=== PATIENT | female | born 1950 | race Caucasian/White ===

== ENCOUNTER 2016-07-30 15:15 | Inpatient (IN) | payer OTHER ==
[~2016-07-30] VITALS: Ht 165.1 cm; Wt 99.1 kg
[~2016-07-30 15:15] MED LIST: ASCO10003 PO; ASPCH81X PO; ATOR-22 PO; GABA800T2 PO; INSUINJ12 SC; LISI-729 PO; METF1000 PO; MULT-190 PO; MULT-506 PO; VITA400C28 PO; ZNTT/150 PO
[2016-07-30] MEDS ORDERED: ONDANSETRON INJ 2 MG/ML 2 ML VIAL IV STA (15:51)
[2016-07-30] MEDS ORDERED: SODIUM CHLORIDE 0.9% 1000ML 1,000 ML IV STA (15:51)
[2016-07-30] MEDS ORDERED: CEFTRIAXONE SOD INJ 1 GM ADDVIAL IV STA (16:06)
--- NOTE | 2016-07-30 16:19 | DIAGNOSTIC IMAGING REPORT ---
CHEST ONE VIEW PORTABLE CLINICAL HISTORY: Evaluate Fever/Sepsis fever COMPARISON STUDY: 05/08/2016 FINDINGS: Slight chronic interstitial prominence left base. Lungs otherwise are clear. Diaphragms smooth. IMPRESSION: Chronic change. No acute process. Electronically signed by: Jean-Pierre Cabrera M.D. 07/30/2016 4:17 PM
[2016-07-30 16:21] LABS: BASO % 0.1 %; BASO ABS # 0.01 K/uL (0-0.2); COMPLETE YES; EOS % 0.1 %; HEMATOCRIT 31.7 % (37-47); IG% 0.2 %; LYMPH % 4.3 %; LYMPH ABS # 0.52 K/uL (1.2-3.4); MEAN CELL VOLUME 81.7 fL (80-100); MEAN CORPUSCULAR HEMOGLOBIN 27.8 pg (25-34); MEAN CORPUSCULAR HGB CONC 34.1 g/dl (32-36); MEAN PLATELET VOLUME 10.3 fL (7.4-10.4); MONO % 9.7 %; NEUT % 85.6 %; PLATELET COUNT 145 K/uL (130-400); RED BLOOD COUNT 3.88 M/uL (4.2-5.4); WHITE BLOOD COUNT 12.01 K/uL (4.8-10.8)
[2016-07-30 16:41] LABS: INR 1.2 (0.9-1.1); PARTIAL THROMBOPLASTIN RATIO 1.5; PROTHROMBIN TIME (PATIENT) 13.4 SECONDS (9.0-12.0)
[2016-07-30 16:46] LABS: ALT/SGPT 20 U/L (12-78); BLOOD UREA NITROGEN 28 mg/dl (7-18); BUN/CREATININE RATIO 14.5 (10-20); CALCIUM 8.7 mg/dl (8.5-10.1); CARBON DIOXIDE 23 mmol/L (21-32); CHLORIDE 97 mmol/L (98-107); GLUCOSE 320 mg/dl (70-99); POTASSIUM 3.7 mmol/L (3.5-5.1); SODIUM 134 mmol/L (136-145)
[2016-07-30] MEDS ORDERED: CLON0.5T3 PO (16:47)
[2016-07-30 16:49] LABS: ALKALINE PHOSPHATASE 79 U/L (45-117)
[2016-07-30 16:56] LABS: URINE APPEARANCE TURBID (CLEAR); URINE BILIRUBIN NEG (NEG); URINE COLOR YELLOW; URINE EPITHELIAL CELL AUTO >30 /lpf (0-5); URINE NITRITE POS (NEG); URINE SPECIFIC GRAVITY 1.021 (1.000-1.030); UROBILINOGEN NEG (NEG); ZZUR CULT IF INDIC CLEAN CATCH YES
[2016-07-30 16:57] LABS: AST/SGOT 16 U/L (15-37); BETA-HYDROXYBUTYRATE 8.42 mg/dL (0.2-2.81)
[2016-07-30 17:00] LABS: MANUAL MICROSCOPIC REQUIRED? NO; REVIEW REQ? YES
[2016-07-30 17:11] LABS: URINE PATH CASTS 1-5 GRANULAR CASTS /lpf (0)
--- NOTE | 2016-07-30 17:24 | EMERGENCY ROOM VISIT NOTE ---
History Report prepared by Tamera: Annie Merino Under the Supervision of: Dr. Paras Rodas D.O. First contact with patient: 15:42 Chief Complaint: URINARY SYMPTOMS Stated Complaint: UTI, FLU LIKE SX Nursing Triage Summary: Patient c/o urinary frequency and urgency since Thursday, went to [facility] today and was sent here for possible sepsis. History of Present Illness The patient is a 65 year old female who presents to the Emergency Room with complaints of a persistent, worsening illness that began Thursday. She currently rates her discomfort as a 2.5/10 in severity. The patient states that her symptoms started on Thursday with chills. She states that over the last several days she has developed a runny nose, cough, shortness of breath, abdominal pain , vomiting, diarrhea, and urinary frequency. The patient states that while at the doctor's office she had a fever. She denies being given anything for her fever while at her PCP's office. The patient denies any sneezing, sore throat, or burning with urination. Source of History: patient Onset: Thursday Position: other (global) Symptom Intensity: 2.5/10 Quality: other (illness) Timing: worsening Associated Symptoms: + SOB, + abdominal pain, + chills, + cough, + fevers, + nausea, + urinary symptoms (frequency), + vomiting, No sorethroat Note: ASsociated Symptoms: runny nose Review of Systems See HPI for pertinent positives & negatives. A total of 10 systems reviewed and were otherwise negative. Past Medical & Surgical Medical Problems: (1) Diabetes (2) Hypertension (3) Sepsis Family History Cancer Diabetes mellitus Gallbladder disease Lung disease Social History Smoking Status: Former Smoker Drug Use: none Marital Status: Housing Status: lives with significant other Occupation Status: employed Current/Historical Medications Scheduled Ascorbic Acid (Vitamin C), 1 TAB PO QAM Aspirin (Aspirin Chewable), 81 MG PO HS Atorvastatin (Lipitor), 20 MG PO HS Gabapentin (Neurontin), 800 MG PO QID Insulin Detmir (Levemir), 25 UNITS SC HS Lisinopril (Zestril), 5 MG PO HS Metformin Hcl (Glucophage), 1,000 MG PO BID Multivitamin (Multivitamin), 1 TAB PO HS Ocuvite Preservision (Ocuvite Preservision), 1 TAB PO BID Ranitidine (Zantac), 150 MG PO HS Vitamin E (Alph-E), 1 CAP PO QAM Scheduled PRN Clonazepam (Klonopin), 0.5 MG PO HS PRN for Anxiety Allergies Coded Allergies: Acetaminophen (Unverified Allergy, Unknown, UNKNOWN, 07/30/16) Oxycodone (Unverified Allergy, Unknown, UNKNOWN, 07/30/16) Tetracyclines (Verified Adverse Reaction, Severe, CAUSES DECREASED RESPIRATIONS, YEAST INFECTIONS, 07/30/16) Physical Exam Vital Signs Date Time Temp Pulse Resp B/P Pulse Ox O2 Delivery O2 Flow Rate FiO2 07/30/16 17:10 37.0 110 20 134/69 97 Room Air 07/30/16 16:24 108 07/30/16 15:18 36.8 120 18 155/72 98 Room Air Physical Exam CONSTITUTIONAL/VITAL SIGNS: Reviewed / noted above. GENERAL: Non-toxic in appearance. INTEGUMENTARY: Warm, dry, and [place]. HEAD: Normocephalic. EYES: without scleral icterus or trauma. ENT/OROPHARYNX: clear and moist. LYMPHADENOPATHY/NECK: Is supple without lymphadenopathy or meningismus. RESPIRATORY: Lungs clear and equal. CARDIOVASCULAR: Tachycardic rate and rhythm. GI/ABDOMEN: Soft and nontender. No organomegaly or pulsatile mass. No rebound or guarding. Normal bowel sounds. EXTREMITIES: Warm and well perfused. BACK: No CVA tenderness. NEUROLOGICAL: Intact without focal deficits. PSYCHIATRIC: normal affect. MUSCULOSKELETAL: Normally developed with good muscle tone. Medical Decision & Procedures ER Provider Diagnostic Interpretation: X ray results and stated below per my interpretation and radiology interpretation. CHEST ONE VIEW PORTABLE CLINICAL HISTORY: Evaluate Fever/Sepsis fever COMPARISON STUDY: 05/08/2016 FINDINGS: Slight chronic interstitial prominence left base. Lungs otherwise are clear. Diaphragms smooth. IMPRESSION: Chronic change. No acute process. Electronically signed by: Jean-Pierre Cabrera M.D. 07/30/2016 4:17 PM Laboratory Results 07/30/16 16:02 Red Blood Count 3.88, Mean Corpuscular Volume 81.7, Mean Corpuscular Hemoglobin 27.8, Mean Corpuscular Hemoglobin Concent 34.1, Mean Platelet Volume 10.3, Neutrophils (%) (Auto) 85.6, Lymphocytes (%) (Auto) 4.3, Monocytes (%) (Auto) 9.7, Eosinophils (%) (Auto) 0.1, Basophils (%) (Auto) 0.1, Neutrophils # (Auto) 10.29, Lymphocytes # (Auto) 0.52, Monocytes # (Auto) 1.16, Eosinophils # (Auto) 0.01, Basophils # (Auto) 0.01 07/30/16 16:02 Test 07/30/16 16:02 White Blood Count 12.01 K/uL (4.8-10.8) Red Blood Count 3.88 M/uL (4.2-5.4) Hemoglobin 10.8 g/dL (12.0-16.0) Hematocrit 31.7 % (37-47) Mean Corpuscular Volume 81.7 fL (80-100) Mean Corpuscular Hemoglobin 27.8 pg (25-34) Mean Corpuscular Hemoglobin Concent 34.1 g/dl (32-36) Platelet Count 145 K/uL (130-400) Mean Platelet Volume 10.3 fL (7.4-10.4) Neutrophils (%) (Auto) 85.6 % Lymphocytes (%) (Auto) 4.3 % Monocytes (%) (Auto) 9.7 % Eosinophils (%) (Auto) 0.1 % Basophils (%) (Auto) 0.1 % Neutrophils # (Auto) 10.29 K/uL (1.4-6.5) Lymphocytes # (Auto) 0.52 K/uL (1.2-3.4) Monocytes # (Auto) 1.16 K/uL (0.11-0.59) Eosinophils # (Auto) 0.01 K/uL (0-0.5) Basophils # (Auto) 0.01 K/uL (0-0.2) RDW Standard Deviation 46.3 fL (36.4-46.3) RDW Coefficient of Variation 15.4 % (11.5-14.5) Immature Granulocyte % (Auto) 0.2 % Immature Granulocyte # (Auto) 0.02 K/uL (0.00-0.02) Prothrombin Time 13.4 SECONDS (9.0-12.0) Prothromb Time International Ratio 1.2 (0.9-1.1) Activated Partial Thromboplast Time 37.7 SECONDS (21.0-31.0) Partial Thromboplastin Ratio 1.5 Urine Color YELLOW Urine Appearance TURBID (CLEAR) Urine pH 5.0 (4.5-7.5) Urine Specific [place] 1.021 (1.000-1.030) Urine Protein 3+ (NEG) Urine Glucose (UA) 2+ (NEG) Urine Ketones TRACE (NEG) Urine Occult Blood 3+ (NEG) Urine Nitrite POS (NEG) Urine Bilirubin NEG (NEG) Urine Urobilinogen NEG (NEG) Urine Leukocyte Esterase SMALL (NEG) Urine WBC (Auto) >30 /hpf (0-5) Urine RBC (Auto) >30 /hpf (0-4) Urine Hyaline Casts (Auto) 5-10 /lpf (0-5) Urine Epithelial Cells (Auto) >30 /lpf (0-5) Urine Bacteria (Auto) 4+ (NEG) Urine Pathogenic Casts 1-5 GRANULAR CASTS /lpf (0) Anion Gap 14.0 mmol/L (3-11) Est Creatinine Clear Calc Drug Dose 34.5 ml/min Estimated GFR () 31.5 Estimated GFR (Non- 27.2 BUN/Creatinine Ratio 14.5 (10-20) Calcium Level 8.7 mg/dl (8.5-10.1) Total Bilirubin 1.0 mg/dl (0.2-1) Direct Bilirubin 0.3 mg/dl (0-0.2) Aspartate Amino Transf (AST/SGOT) 16 U/L (15-37) Alanine Aminotransferase (ALT/SGPT) 20 U/L (12-78) Alkaline Phosphatase 79 U/L (45-117) Total Creatine Kinase 66 U/L (26-192) Creatine Kinase MB < 0.5 ng/ml (0.5-3.6) Creatine Kinase MB Ratio (0-3.0) Troponin I < 0.015 ng/ml (0-0.045) Total Protein 8.4 gm/dl (6.4-8.2) Albumin 2.9 gm/dl (3.4-5.0) Lipase 265 U/L (73-393) Beta-Hydroxybutyric Acid 8.42 mg/dL (0.2-2.81) Influenza Type A Antigen Neg for Influ A (NEG) Influenza Type B Antigen Neg for Influ B (NEG) Laboratory results as stated above per my review. Medications Administered Medications (Trade) Dose Ordered Sig/Lea Route Start Time Stop Time Status Last Admin Dose Admin Sodium Chloride (Nss 1000ml) 1,000 ml @ 999 mls/hr Q1H1M STAT IV 07/30/16 15:51 07/30/16 16:51 DC 07/30/16 16:09 999 MLS/HR Ondansetron HCl (Zofran Inj) 4 mg NOW STAT IV 07/30/16 15:51 07/30/16 15:52 DC 07/30/16 16:09 4 MG Ceftriaxone Sodium (Rocephin Inj) 1 gm NOW STAT IV 07/30/16 16:06 07/30/16 16:07 DC 07/30/16 16:41 1 GM ED Course 1547: Previous medical records were reviewed. The patient was evaluated in room B11B. A complete history and physical examination was performed. 1551: Ordered Zofran Inj 4 mg IV, Sodium Chloride 1000 ml @ 999 mls/hr IV. 1606: Ordered Rocephin Inj 1 gm IV. 1725: I reevaluated the patient and she is resting comfortably. I discussed the exam findings with her and I discussed the treatment plan. She verbalized complete understanding and agreement. She will be evaluated for further treatment. 1727: I discussed the patient's case with Umesh Hi. He is going to evaluate the patient for further treatment. Medical Decision Differential includes acute coronary syndrome, myocardial infarction, CVA, TIA, anemia, infection, pneumonia, UTI, pyelonephritis, poor nutrition, dehydration, electrolyte disturbance,hypoglycemia. This is a 65-year-old female who presents to the ED with a chief complaint of chills and subjective fever since Thursday. She reports some frequency with urination as well as some urgency. The patient developed some nausea and vomiting over the past 2 days. She has also been ill with a viral-like syndrome for the past 5 days with a cough, runny nose and shortness of breath. The patient's initial heart rate here was 120. She was sent from the urgent care center. The patient's temperature there was afebrile. She is currently afebrile here. Her physical exam revealed some generalized malaise and weakness but no specific findings. Chest x-ray was negative for acute disease. White blood cell count was 12. Hemoglobin was 10.8. BUN is 28 and creatinine is 1.9. Glucose is 320. Troponin is negative. Influenza screen was negative. Urine suggest UTI. The patient's baseline creatinine was 0.93 and the past 4 months. The patient was treated with IV Rocephin, IV fluids and IV Zofran. She'll be seen by the hospitalist service for further inpatient evaluation. Consults Time Called: 1720 Consulting Physician: Umesh Hi Returned Call: [phone] I discussed the patient's case with Umesh Hi. He is going to evaluate the patient for further treatment. Impression Primary Impression: Urinary tract infection Additional Impressions: ARF (acute renal failure), Hyperglycemia Scribe Attestation The scribe's documentation has been prepared under my direction and personally reviewed by me in its entirety. I confirm that the note above accurately reflects all work, treatment, procedures, and medical decision making performed by me. Departure Information Dispostion Being Evaluated By Hospitalist Referrals Jean-Pierre Dave M.D. (PCP)
[2016-07-30] MEDS ORDERED: CLONAZEPAM 0.5 MG TAB PO PRN (18:15)
[2016-07-30] MEDS ORDERED: GLUCOSE 40% GEL 15 GM TUBE PO PRN (18:15)
[2016-07-30] MEDS ORDERED: DEXTROSE 50% 50 ML SYR IV PRN (18:15)
[2016-07-30] MEDS ORDERED: GLUCAGON FOR INJ 1 MG VIAL SQ PRN (18:15)
[2016-07-30] MEDS ORDERED: CLONIDINE HCL 0.1 MG TAB PO PRN (18:15)
[2016-07-30] MEDS ORDERED: GLUCOSE 10 TABS/TUBE PO PRN (18:15)
[2016-07-30] MEDS ORDERED: PHARMACY GLYCEMIC MGMT CONSULT PRN (18:27)
[2016-07-30] MEDS ORDERED: PIPERACILL/TAZOBAC CONSULT ACTIVE PRN (18:30)
--- NOTE | 2016-07-30 20:24 | Pharmacy Progress Note ---
Glycemic Control Intl Consult Date of Service Jul 30, 2016. Scope Glycemic Pharmacist consulted by Dr Trujillo on 07/30/16 for glycemic control and to write orders per [facility] inpatient glycemic control protocol Objective Weight (Kilograms): 99.800 Accuchecks BSG (last 24hrs): Test 07/30/16 16:02 Random Glucose 320 mg/dl (70-99) Laboratory Data (last 24hrs) Test 07/30/16 16:02 Anion Gap 14.0 mmol/L BUN/Creatinine Ratio 14.5 Blood Urea Nitrogen 28 mg/dl Creatinine 1.90 mg/dl Potassium Level 3.7 mmol/L Sodium Level 134 mmol/L White Blood Count 12.01 K/uL Red Blood Count 3.88 M/uL Hemoglobin 10.8 g/dL Hematocrit 31.7 % Mean Corpuscular Volume 81.7 fL Mean Corpuscular Hemoglobin 27.8 pg Mean Corpuscular Hemoglobin Concent 34.1 g/dl Platelet Count 145 K/uL Mean Platelet Volume 10.3 fL Neutrophils (%) (Auto) 85.6 % Lymphocytes (%) (Auto) 4.3 % Monocytes (%) (Auto) 9.7 % Eosinophils (%) (Auto) 0.1 % Basophils (%) (Auto) 0.1 % Neutrophils # (Auto) 10.29 K/uL Lymphocytes # (Auto) 0.52 K/uL Monocytes # (Auto) 1.16 K/uL Eosinophils # (Auto) 0.01 K/uL Basophils # (Auto) 0.01 K/uL HbA1c pending 07/31/16 Recent Pertinent Medications Outpatient Anti-diabetic Regimen: * Levemir 25 units hs, metformin 1000 mg bid * A1c = 5.4 % 05/08/16, pending 07/31/16 The patient is currently receiving: * Basal insulin: Levemir 25 units every hs * Correctional Insulin: Novolog Correction per scale ACHS Goal Range: Low 140 mg/dL - High 180 mg/dL Correction Factor: 25 mg/dL/unit * Prandial insulin: Per carb ratio of 1 unit per 20 grams CHO consumed * Oral Agents: none Risk Factors for Insulin Resistance: * Steroids: no * Infection: UTI, flu-like symptoms, on Zosyn, had Rocephin x1 * Pressors: no * IVF: NS @125 ml/hr, Zosyn mixed in D5W * Recent Surgery: no * Diet: * Mechanical Ventilation: no Assessment & Plan ASSESSMENT: * ADA & AACE recommend a goal blood sugar range 140-180 mg/dl for the majority of critically ill & non-critically ill patients. However, more stringent targets may be selected in individual cases. * 65 yo type 2 diabetic well-controlled in past. A1c pending to assess recent glycemic control. Will continue her Levemir and add weight-based correction and carb coverage. PLAN FOR INPATIENT GLYCEMIC CONTROL: * Continuing Levemir 25 units hs, give 1/2 dose if BSG is less than 110 * Changing correction factor to 35 mg/dl/unit * Changing carb ratio to 1 unit per 15 grams CHO consumed * Changing goal range to Low 110 mg/dL - High 150 mg/dL * Please note that the plan above was derived based on current level of insulin resistance and hospital stress. These recommendations are appropriate for inpatient admission only. Plan of care upon discharge will need to be reassessed to avoid potential outpatient hypo/hyperglycemia. Thank you.
[2016-07-30 21:00] VITALS: BP 133/71; PULSE 112; TEMP 37.7; O2SAT 98; BMI 36.4
[2016-07-30] MEDS ORDERED: ASPIRIN 81 MG ECTAB PO SCH (21:00)
[2016-07-30] MEDS ORDERED: INSULIN DETEMIR FLEXPEN/FLEX TOUCH 100 UNITS/ML 3ML SC SCH (21:00)
[2016-07-30] MEDS: SODIUM CHLORIDE 0.9% 1000ML 1,000 ML IV SCH (21:14)
--- NOTE | 2016-07-30 21:19 | History and Physical ---
History & Physical Date & Time of Service: Jul 30, 2016 at 21:17 Chief Complaint: Sepsis Primary Care Physician: Jean-Pierre Dave M.D. History of Present Illness 65 year old female with history of DM, HTN, HLD presenting with fever and chills x 5 days. Patient states last Thursday, she started to have chills associated with poor appetite. She then started to have polyuria but no dysuria or abdominal pain. Anorexia continued. Yesterday, she started to have nausea, vomiting, diarrhea- non bloody. Today, patient consulted with PCP and was advised ER evaluation. At the ED, patient received with tachycardia, leukocytosis, crea of 1.9, and UA indicative of UTI. She was given IV fluids and Ceftriaxone. On my exam, patient seen resting in bed, comfortable overall. Denies chest pain, dyspnea, dizziness, palpitations, abdominal pain. Past Medical/Surgical History Medical Problems: (1) Diabetes Status: Chronic (2) Hypertension Status: Chronic Family History Cancer Diabetes mellitus Gallbladder disease Lung disease Social History Smoking Status: Former Smoker Drug Use: none Marital Status: Occupational Status: employed Multi-Drug Resistant Organisms History of MDRO: No Allergies Coded Allergies: Acetaminophen (Unverified Allergy, Unknown, UNKNOWN, 07/30/16) Oxycodone (Unverified Allergy, Unknown, UNKNOWN, 07/30/16) Tetracyclines (Verified Adverse Reaction, Severe, CAUSES DECREASED RESPIRATIONS, YEAST INFECTIONS, 07/30/16) Home Medications Scheduled Ascorbic Acid (Vitamin C), 1 TAB PO QAM Aspirin (Aspirin Chewable), 81 MG PO HS Atorvastatin (Lipitor), 20 MG PO HS Gabapentin (Neurontin), 800 MG PO QID Insulin Detmir (Levemir), 25 UNITS SC HS Lisinopril (Zestril), 5 MG PO HS Metformin Hcl (Glucophage), 1,000 MG PO BID Multivitamin (Multivitamin), 1 TAB PO HS Ocuvite Preservision (Ocuvite Preservision), 1 TAB PO BID Ranitidine (Zantac), 150 MG PO HS Vitamin E (Alph-E), 1 CAP PO QAM Scheduled PRN Clonazepam (Klonopin), 0.5 MG PO HS PRN for Anxiety Review of Systems Constitutional- (+) as noted above Eyes- no acute visual changes ENT- no sinus drainage; no pharyngitis Pulmonary- no cough, no wheezing, no shortness of breath Cardiac- no chest pain, no palpitations, no orthopnea, no dependent edema GI- (+) as noted above - (+) polyuria Musculoskeletal- no arthralgias, no myalgias Derm- no rashes, no new skin lesions, no changing skin lesions Hematologic- no unusual bruising, no unusual bleeding Lymphatics- no adenopathy Endocrine- no polyuria or polydipsia; no heat or cold intolerance Neuro- no headaches, no focal neurologic symptoms Psych- no anxiety, no depression Physical Exam Vital Signs Date Time Temp Pulse Resp B/P Pulse Ox O2 Delivery O2 Flow Rate FiO2 07/30/16 20:17 37.0 105 18 133/67 97 07/30/16 20:07 105 18 133/67 97 Room Air 07/30/16 20:05 105 18 07/30/16 20:00 105 17 07/30/16 19:55 107 24 07/30/16 19:50 106 23 07/30/16 19:45 105 23 07/30/16 19:40 105 15 07/30/16 19:35 105 17 07/30/16 19:30 104 9 07/30/16 19:25 106 19 07/30/16 19:20 108 23 07/30/16 19:15 108 21 07/30/16 19:10 107 20 07/30/16 19:05 104 23 07/30/16 19:00 103 17 07/30/16 18:55 105 19 07/30/16 18:50 99 16 07/30/16 18:50 110 18 131/67 97 Room Air 07/30/16 18:45 111 18 07/30/16 18:40 113 18 07/30/16 18:35 107 22 07/30/16 18:30 103 23 07/30/16 18:25 104 22 07/30/16 18:20 106 20 07/30/16 18:15 122 12 07/30/16 18:10 109 16 07/30/16 18:05 102 22 07/30/16 18:00 105 18 07/30/16 17:55 106 17 07/30/16 17:50 104 25 07/30/16 17:45 104 22 07/30/16 17:40 104 25 07/30/16 17:35 105 20 07/30/16 17:30 108 27 07/30/16 17:25 112 16 07/30/16 17:20 107 13 07/30/16 17:15 110 23 07/30/16 17:11 134/69 07/30/16 17:10 37.0 110 20 134/69 97 Room Air 07/30/16 17:10 112 22 07/30/16 17:05 107 23 07/30/16 17:00 112 25 07/30/16 16:55 109 21 07/30/16 16:50 108 22 07/30/16 16:45 109 22 07/30/16 16:40 110 24 07/30/16 16:35 106 24 07/30/16 16:30 109 19 07/30/16 16:25 108 18 07/30/16 16:24 108 07/30/16 15:18 36.8 120 18 155/72 98 Room Air General Appearance: WD/WN, no apparent distress Head: normocephalic, atraumatic Eyes: normal inspection, PERRL, EOMI, sclerae normal ENT: normal ENT inspection, hearing grossly normal, pharynx normal Neck: supple, no adenopathy, thyroid normal, no JVD, trachea midline Respiratory/Chest: chest non-tender, lungs clear, normal breath sounds, no respiratory distress, no accessory muscle use Cardiovascular: no edema, no JVD, no murmur, normal peripheral pulses, + tachycardia Abdomen/GI: normal bowel sounds, non tender, soft, no organomegaly Back: normal inspection, no CVA tenderness Extremities/Musculoskelatal: normal inspection, no calf tenderness, normal capillary refill, no pedal edema, normal range of motion, pelvis stable Neurologic/Psych: sander wooden pencils II-XII nml as tested, no motor/sensory deficits, alert, normal mood/affect, normal reflexes, oriented x 3 Skin: normal color, warm/dry, no rash Lymphatic: no adenopathy Diagnostics Laboratory Results Results Past 24 Hours Test 07/30/16 16:02 07/30/16 18:35 Range/Units White Blood Count 12.01 4.8-10.8 K/uL Red Blood Count 3.88 4.2-5.4 M/uL Hemoglobin 10.8 12.0-16.0 g/dL Hematocrit 31.7 37-47 % Mean Corpuscular Volume 81.7 80-100 fL Mean Corpuscular Hemoglobin 27.8 25-34 pg Mean Corpuscular Hemoglobin Concent 34.1 32-36 g/dl Platelet Count 145 130-400 K/uL Mean Platelet Volume 10.3 7.4-10.4 fL Neutrophils (%) (Auto) 85.6 % Lymphocytes (%) (Auto) 4.3 % Monocytes (%) (Auto) 9.7 % Eosinophils (%) (Auto) 0.1 % Basophils (%) (Auto) 0.1 % Neutrophils # (Auto) 10.29 1.4-6.5 K/uL Lymphocytes # (Auto) 0.52 1.2-3.4 K/uL Monocytes # (Auto) 1.16 0.11-0.59 K/uL Eosinophils # (Auto) 0.01 0-0.5 K/uL Basophils # (Auto) 0.01 0-0.2 K/uL RDW Standard Deviation 46.3 36.4-46.3 fL RDW Coefficient of Variation 15.4 11.5-14.5 % Immature Granulocyte % (Auto) 0.2 % Immature Granulocyte # (Auto) 0.02 0.00-0.02 K/uL Prothrombin Time 13.4 9.0-12.0 SECONDS Prothromb Time International Ratio 1.2 0.9-1.1 Activated Partial Thromboplast Time 37.7 21.0-31.0 SECONDS Partial Thromboplastin Ratio 1.5 Urine Color YELLOW Urine Appearance TURBID CLEAR Urine pH 5.0 4.5-7.5 Urine Specific [place] 1.021 1.000-1.030 Urine Protein 3+ NEG Urine Glucose (UA) 2+ NEG Urine Ketones TRACE NEG Urine Occult Blood 3+ NEG Urine Nitrite POS NEG Urine Bilirubin NEG NEG Urine Urobilinogen NEG NEG Urine Leukocyte Esterase SMALL NEG Urine WBC (Auto) >30 0-5 /hpf Urine RBC (Auto) >30 0-4 /hpf Urine Hyaline Casts (Auto) 5-10 0-5 /lpf Urine Epithelial Cells (Auto) >30 0-5 /lpf Urine Bacteria (Auto) 4+ NEG Urine Pathogenic Casts 1-5 GRANULAR CASTS 0 /lpf Sodium Level 134 136-145 mmol/L Potassium Level 3.7 3.5-5.1 mmol/L Chloride Level 97 98-107 mmol/L Carbon Dioxide Level 23 21-32 mmol/L Anion Gap 14.0 3-11 mmol/L Blood Urea Nitrogen 28 7-18 mg/dl Creatinine 1.90 0.60-1.20 mg/dl Est Creatinine Clear Calc Drug Dose 34.5 ml/min Estimated GFR () 31.5 Estimated GFR (Non- 27.2 BUN/Creatinine Ratio 14.5 10-20 Random Glucose 320 70-99 mg/dl Calcium Level 8.7 8.5-10.1 mg/dl Total Bilirubin 1.0 0.2-1 mg/dl Direct Bilirubin 0.3 0-0.2 mg/dl Aspartate Amino Transf (AST/SGOT) 16 15-37 U/L Alanine Aminotransferase (ALT/SGPT) 20 12-78 U/L Alkaline Phosphatase 79 45-117 U/L Total Creatine Kinase 66 26-192 U/L Creatine Kinase MB < 0.5 0.5-3.6 ng/ml Creatine Kinase MB Ratio 0-3.0 Troponin I < 0.015 0-0.045 ng/ml Total Protein 8.4 6.4-8.2 gm/dl Albumin 2.9 3.4-5.0 gm/dl Lipase 265 73-393 U/L Beta-Hydroxybutyric Acid 8.42 0.2-2.81 mg/dL Influenza Type A Antigen Neg for Influ A NEG Influenza Type B Antigen Neg for Influ B NEG Lactic Acid Level 1.7 0.4-2.0 mmol/L Microbiology Results 07/30/16 Blood Culture, Received Pending 07/30/16 Blood Culture, Received Pending 07/30/16 Urine Culture, Received Pending Diagnostic Radiology CXR CHEST ONE VIEW PORTABLE CLINICAL HISTORY: Evaluate Fever/Sepsis fever COMPARISON STUDY: 05/08/2016 FINDINGS: Slight chronic interstitial prominence left base. Lungs otherwise are clear. Diaphragms smooth. IMPRESSION: Chronic change. No acute process. Impression Assessment and Plan 65 year old female with history of DM, HTN, HLD presenting with fever and chills x 5 days. POSSIBLE SEPSIS SECONDARY TO: UTI blood cultures urine culture IV fluids empiric Zosyn R/O C DIFF check C diff and stool cultures R/O FLU check Flu PCR ACUTE RENAL FAILURE ON CKD 3 IV fluids hold Losartan HYPERGLYCEMIA DM 2 ISS Glycemic control consult repeat PRP at 10 HYPERTENSION continue Metoprolol hold Lisinopril BOWDEN CIRRHOSIS LFTs stable POSSIBLE SARCOIDOSIS corrected calcium 9.5 DVT prophylaxis SCDs for now FULL CODE Disposition pending VTE Prophylaxis VTE Risk Assessment Done? Y/N: Yes Risk Level: Moderate
[2016-07-30] MEDS ORDERED: ONDANSETRON INJ 2 MG/ML 2 ML VIAL IV PRN (21:30)
[2016-07-30] MEDS: RANITIDINE HCL 150 MG TAB PO SCH (21:58)
[2016-07-30] MEDS: GABAPENTIN 400 MG CAP PO SCH (21:58)
[2016-07-30] MEDS: MULTIVITAMIN TAB PO SCH (21:59)
[2016-07-30] MEDS: INSULIN ASPART 100 UNITS/ML 3 ML PEN SC SCH (22:05)
[2016-07-30 22:58] LABS: BUN/CREATININE RATIO 21.2 (10-20); CALCIUM 7.9 mg/dl (8.5-10.1); CREATININE 1.5 mg/dl (0.60-1.20); POTASSIUM 4.3 mmol/L (3.5-5.1)
[2016-07-30 23:57] VITALS: BP 117/56; PULSE 107; TEMP 38; O2SAT 97
[2016-07-31] VITALS (8 sets, daily range): BP systolic 115–153; BP diastolic 53–84; PULSE 18–119; TEMP 36.7–37.4; O2SAT 93–98; Ht 165.1 cm; Wt 99.1 kg
[2016-07-31] MEDS ORDERED: PIPERACILL/TAZOBAC IV 4.5 GM in DEXTROSE 5% 100ML IV ONE ×2
[2016-07-31 02:05] LABS: INFLUENZA A PCR Neg for Influ A (NEG); INFLUENZA B PCR Neg for Influ B (NEG)
[2016-07-31] MEDS: PIPERACILL/TAZOBAC IV 4.5 GM in DEXTROSE 5% 100ML IV SCH ×3 (05:57→21:55)
[2016-07-31] MEDS: SODIUM CHLORIDE 0.9% 1000ML 1,000 ML IV SCH ×3 (05:57→20:43)
[2016-07-31 06:36] LABS: COMPLETE YES; EOS % 0.8 %; LYMPH % 6.4 %; LYMPH ABS # 0.42 K/uL (1.2-3.4); MEAN CELL VOLUME 81.6 fL (80-100); MEAN CORPUSCULAR HEMOGLOBIN 27.2 pg (25-34); MEAN CORPUSCULAR HGB CONC 33.3 g/dl (32-36); MEAN PLATELET VOLUME 10.4 fL (7.4-10.4); MONO % 11.7 %; NEUT % 81.1 %; PLATELET COUNT 115 K/uL (130-400); RED BLOOD COUNT 3.31 M/uL (4.2-5.4); WHITE BLOOD COUNT 6.58 K/uL (4.8-10.8)
[2016-07-31 07:02] LABS: ESTIMATED AVERAGE GLUCOSE 148 mg/dl; HA1C FLAG Normal (Normal)
[2016-07-31 07:06] LABS: BUN/CREATININE RATIO 18.1 (10-20); CALCIUM 7.8 mg/dl (8.5-10.1); CREATININE 1.6 mg/dl (0.60-1.20); MAGNESIUM 1.9 mg/dl (1.8-2.4); POTASSIUM 3.7 mmol/L (3.5-5.1)
[2016-07-31] MEDS: GABAPENTIN 400 MG CAP PO SCH ×3 (08:28→20:20)
[2016-07-31] MEDS: INSULIN ASPART 100 UNITS/ML 3 ML PEN SC SCH ×4 (08:30→21:54)
--- NOTE | 2016-07-31 12:25 | Progress Note ---
Medicine Progress Note Date & Time of Visit: Jul 31, 2016 at 12:19. Subjective patient seen sitting up in bed comfortable, brighter , alert states she feels improved has mild nausea, appetite fair no diarrhea no chest pain, dyspnea, palpitations, dizziness no other symptoms Objective Last 8 Hrs Date Time Temp Pulse Resp B/P Pulse Ox O2 Delivery O2 Flow Rate FiO2 07/31/16 12:02 36.8 96 18 117/58 96 18 07/31/16 08:31 36.8 119 20 153/73 98 119 07/31/16 08:00 Room Air Physical Exam: General- oriented x 3, not in distress, speaks in sentences with no effort Eyes- anicteric ENT- oropharynx clear Neck- supple, no JVD Lungs- clear to auscultation bilaterally Heart-normal rate, regular rhythm; no murmur, no gallop, no rub appreciated Abdomen- normal bowel sounds, soft, nontender Extremities- no pretibial edema, no calf tenderness; peripheral pulses intact Neuro- alert, oriented x 3; no gross focal deficits Skin- warm & dry Laboratory Results: Last 24 Hours Test 07/30/16 16:02 07/30/16 18:35 07/30/16 21:14 07/30/16 22:12 White Blood Count 12.01 K/uL Red Blood Count 3.88 M/uL Hemoglobin 10.8 g/dL Hematocrit 31.7 % Mean Corpuscular Volume 81.7 fL Mean Corpuscular Hemoglobin 27.8 pg Mean Corpuscular Hemoglobin Concent 34.1 g/dl Platelet Count 145 K/uL Mean Platelet Volume 10.3 fL Neutrophils (%) (Auto) 85.6 % Lymphocytes (%) (Auto) 4.3 % Monocytes (%) (Auto) 9.7 % Eosinophils (%) (Auto) 0.1 % Basophils (%) (Auto) 0.1 % Neutrophils # (Auto) 10.29 K/uL Lymphocytes # (Auto) 0.52 K/uL Monocytes # (Auto) 1.16 K/uL Eosinophils # (Auto) 0.01 K/uL Basophils # (Auto) 0.01 K/uL RDW Standard Deviation 46.3 fL RDW Coefficient of Variation 15.4 % Immature Granulocyte % (Auto) 0.2 % Immature Granulocyte # (Auto) 0.02 K/uL Prothrombin Time 13.4 SECONDS Prothromb Time International Ratio 1.2 Activated Partial Thromboplast Time 37.7 SECONDS Partial Thromboplastin Ratio 1.5 Urine Color YELLOW Urine Appearance TURBID Urine pH 5.0 Urine Specific Dalton 1.021 Urine Protein 3+ Urine Glucose (UA) 2+ Urine Ketones TRACE Urine Occult Blood 3+ Urine Nitrite POS Urine Bilirubin NEG Urine Urobilinogen NEG Urine Leukocyte Esterase SMALL Urine WBC (Auto) >30 /hpf Urine RBC (Auto) >30 /hpf Urine Hyaline Casts (Auto) 5-10 /lpf Urine Epithelial Cells (Auto) >30 /lpf Urine Bacteria (Auto) 4+ Urine Pathogenic Casts 1-5 GRANULAR CASTS /lpf Sodium Level 134 mmol/L 137 mmol/L Potassium Level 3.7 mmol/L 4.3 mmol/L Chloride Level 97 mmol/L 101 mmol/L Carbon Dioxide Level 23 mmol/L 26 mmol/L Anion Gap 14.0 mmol/L 10.0 mmol/L Blood Urea Nitrogen 28 mg/dl 32 mg/dl Creatinine 1.90 mg/dl 1.50 mg/dl Est Creatinine Clear Calc Drug Dose 34.5 ml/min 43.8 ml/min Estimated GFR () 31.5 41.9 Estimated GFR (Non- 27.2 36.2 BUN/Creatinine Ratio 14.5 21.2 Random Glucose 320 mg/dl 267 mg/dl Calcium Level 8.7 mg/dl 7.9 mg/dl Total Bilirubin 1.0 mg/dl Direct Bilirubin 0.3 mg/dl Aspartate Amino Transf (AST/SGOT) 16 U/L Alanine Aminotransferase (ALT/SGPT) 20 U/L Alkaline Phosphatase 79 U/L Total Creatine Kinase 66 U/L Creatine Kinase MB < 0.5 ng/ml Creatine Kinase MB Ratio Troponin I < 0.015 ng/ml Total Protein 8.4 gm/dl Albumin 2.9 gm/dl Lipase 265 U/L Beta-Hydroxybutyric Acid 8.42 mg/dL Influenza Type A Antigen Neg for Influ A Influenza Type B Antigen Neg for Influ B Lactic Acid Level 1.7 mmol/L Bedside Glucose 264 mg/dl Test 07/30/16 23:40 07/31/16 06:05 Influenza Type A (RT-PCR) Neg for Influ A Influenza Type B (RT-PCR) Neg for Influ B White Blood Count 6.58 K/uL Red Blood Count 3.31 M/uL Hemoglobin 9.0 g/dL Hematocrit 27.0 % Mean Corpuscular Volume 81.6 fL Mean Corpuscular Hemoglobin 27.2 pg Mean Corpuscular Hemoglobin Concent 33.3 g/dl Platelet Count 115 K/uL Mean Platelet Volume 10.4 fL Neutrophils (%) (Auto) 81.1 % Lymphocytes (%) (Auto) 6.4 % Monocytes (%) (Auto) 11.7 % Eosinophils (%) (Auto) 0.8 % Basophils (%) (Auto) 0.0 % Neutrophils # (Auto) 5.34 K/uL Lymphocytes # (Auto) 0.42 K/uL Monocytes # (Auto) 0.77 K/uL Eosinophils # (Auto) 0.05 K/uL Basophils # (Auto) 0.00 K/uL RDW Standard Deviation 45.9 fL RDW Coefficient of Variation 15.4 % Immature Granulocyte % (Auto) 0.0 % Immature Granulocyte # (Auto) 0.00 K/uL Sodium Level 138 mmol/L Potassium Level 3.7 mmol/L Chloride Level 103 mmol/L Carbon Dioxide Level 25 mmol/L Anion Gap 10.0 mmol/L Blood Urea Nitrogen 29 mg/dl Creatinine 1.60 mg/dl Est Creatinine Clear Calc Drug Dose 40.9 ml/min Estimated GFR () 38.8 Estimated GFR (Non- 33.5 BUN/Creatinine Ratio 18.1 Random Glucose 189 mg/dl Estimated Average Glucose 148 mg/dl Hemoglobin A1c 6.8 % Calcium Level 7.8 mg/dl Magnesium Level 1.9 mg/dl Date/Time Source Procedure Growth Status 07/30/16 18:35 Blood Blood Culture Pending Received 07/30/16 18:28 Blood Blood Culture Pending Received 07/30/16 23:40 Nasal MRSA DNA Surveillance Screen - Final Specimen Negative for MRSA by DNA Probe Complete 07/30/16 16:02 Urine , Clean Catch Urine Culture - Preliminary Gram Negative Bacilli Resulted Assessment & Plan 65 year old female with history of DM, HTN, HLD presenting with fever and chills x 5 days. POSSIBLE SEPSIS SECONDARY TO: UTI, Gram negative bacilli blood cultures: pending urine culture: gram neg bacilli IV fluids empiric Zosyn Day 2 R/O C DIFF diarrhea resolved check C diff and stool cultures: pending overall improving continue empiric Zosyn Flu PCR: negative ACUTE RENAL FAILURE ON CKD 3 crea improved to 1.6 IV fluids hold Losartan monitor crea HYPERGLYCEMIA DM 2 ISS and Lantus Glycemic control consult HYPERTENSION hold Lisinopril due to acute renal failure monitor BOWDEN CIRRHOSIS LFTs stable POSSIBLE SARCOIDOSIS corrected calcium 9.5 DVT prophylaxis SCDs for now FULL CODE Disposition pending Current Inpatient Medications: Current Inpatient Medications Medications (Trade) Dose Ordered Sig/Lea Route Start Time Stop Time Status Last Admin Dose Admin Sodium Chloride (Nss 1000ml) 1,000 ml @ 125 mls/hr Q8H IV 07/30/16 20:43 08/29/16 20:42 07/31/16 05:57 125 MLS/HR Piperacillin Sod/ Tazobactam Sod (Consult) 1 ea UD PRN N/A 07/30/16 18:30 08/29/16 18:29 Insulin Aspart (novoLOG ASPART) SLIDING SCALE If C... ACHS SC 07/30/16 21:00 08/29/16 20:59 07/31/16 11:53 3 UNITS Glucose (Glucose 40% Gel) 15-30 GRAMS 15 GRAMS... UD PRN PO 07/30/16 18:15 08/29/16 18:14 Glucose (Glucose Chew Tab) 4-8 Tablets 4 Tabl... UD PRN PO 07/30/16 18:15 08/29/16 18:14 Dextrose (Dextrose 50% 50ML Syringe) 25-50ML OF 50% DW IV FOR... UD PRN IV 07/30/16 18:15 08/29/16 18:14 Glucagon (Glucagon Inj) 1 mg UD PRN SQ 07/30/16 18:15 08/29/16 18:14 Miscellaneous Information (Consult Glycemic Management Pharmacy) 1 ea UD PRN N/A 07/30/16 18:27 08/29/16 18:26 Clonazepam (Klonopin Tab) 0.5 mg HS PRN PO 07/30/16 18:15 08/29/16 18:14 07/31/16 00:35 0.5 MG Multivitamins (Multivitamin Tab) 1 tab HS PO 07/30/16 21:00 08/29/16 20:59 07/30/16 21:59 1 TAB Ranitidine HCl (zANTac TAB) 150 mg HS PO 07/30/16 21:00 08/29/16 20:59 07/30/16 21:58 150 MG Clonidine HCl (Catapres Tab) 0.1 mg Q6H PRN PO 07/30/16 18:15 08/29/16 18:14 Gabapentin 400 mg 400 mg TID PO 07/30/16 21:00 08/29/16 20:59 07/31/16 08:28 400 MG Piperacillin Sod/ Tazobactam Sod/ Dextrose (Zosyn Iv/D5 100ml) 120 ml @ 30 mls/hr Q8H IV 07/31/16 06:00 08/07/16 05:59 07/31/16 05:57 30 MLS/HR Ondansetron HCl (Zofran Inj) 4 mg Q6H PRN IV 07/30/16 21:30 08/29/16 21:29 07/30/16 22:34 4 MG Insulin Detemir (Levemir Flexpen/ FlexTouch) 30 unit HS SC 07/31/16 21:00 08/30/16 20:59
[2016-07-31] MEDS ORDERED: METOPROLOL TARTRATE 25 MG TAB PO ONE (12:28)
--- NOTE | 2016-07-31 14:48 | Pharmacy Progress Note ---
Glycemic: Assessment & Plan Date of Service Jul 31, 2016. Assessment & Plan * A1c from today is 6.8% indicating well-controlled BSGs as an outpatient. Recommend continuation of outpatient regimen upon discharge. * BSGs ranging 189 - 320 mg/dl over the past 24hrs. * BSGs remain highly elevated above desired goal range. Novolog parameters were tightened with lunch today so the effects have yet to be seen. * Will increase Lantus by ~15%. * Add an overnight check to aid in resolving hyperglycemia and to better estimate current basal needs. PLAN FOR INPATIENT GLYCEMIC REGIMEN: * Basal insulin: INCREASE - Lantus 30 units qHS; give 1/2 dose for BSG below 110 mg/dl * Correctional Insulin: Novolog Correction per scale ACHS Goal Range: Low 110 mg/dL - High 150 mg/dL TIGHTEN - Correction Factor: 25 mg/dL/unit * Prandial insulin: TIGHTEN - Per carb ratio of 1 unit per 12 grams CHO consumed Pharmacy will continue to monitor patient daily and write orders per [facility] inpatient glycemic control protocol. Thanks. * Please note that the plan above was derived based on current level of insulin resistance and hospital stress. These recommendations are appropriate for inpatient admission only. Plan of care upon discharge will need to be reassessed to avoid potential outpatient hypo/hyperglycemia.
[2016-07-31] MEDS: METOPROLOL TARTRATE 25 MG TAB PO SCH (20:21)
[2016-07-31] MEDS: HEPARIN SOD 5000 UNIT/0.5 ML CARP SQ SCH (21:49)
[2016-07-31] MEDS: RANITIDINE HCL 150 MG TAB PO SCH (21:50)
[2016-07-31] MEDS: MULTIVITAMIN TAB PO SCH (21:50)
[2016-07-31] MEDS: INSULIN DETEMIR FLEXPEN/FLEX TOUCH 100 UNITS/ML 3ML SC SCH (21:55)
[2016-08-01] VITALS (9 sets, daily range): BP systolic 99–140; BP diastolic 64–84; PULSE 81–98; TEMP 37–37.7; O2SAT 94–100
[2016-08-01] MEDS: SODIUM CHLORIDE 0.9% 1000ML 1,000 ML IV SCH ×3 (05:00→23:19)
[2016-08-01] MEDS: PIPERACILL/TAZOBAC IV 4.5 GM in DEXTROSE 5% 100ML IV SCH (05:00)
[2016-08-01 06:53] LABS: BASO % 0.2 %; BASO ABS # 0.01 K/uL (0-0.2); EOS % 2.5 %; HEMATOCRIT 25.2 % (37-47); IG% 0.5 %; LYMPH % 6.8 %; MEAN CELL VOLUME 82.1 fL (80-100); MEAN CORPUSCULAR HGB CONC 32.9 g/dl (32-36); MEAN PLATELET VOLUME 10.4 fL (7.4-10.4); MONO % 10.2 %; NEUT % 79.8 %; PLATELET COUNT 120 K/uL (130-400); RED BLOOD COUNT 3.07 M/uL (4.2-5.4); WHITE BLOOD COUNT 4.42 K/uL (4.8-10.8)
[2016-08-01 07:19] LABS: COMPLETE YES
[2016-08-01 07:27] LABS: BUN/CREATININE RATIO 16.5 (10-20); CALCIUM 7.8 mg/dl (8.5-10.1); CREATININE 1.6 mg/dl (0.60-1.20); MAGNESIUM 2.1 mg/dl (1.8-2.4); POTASSIUM 3.6 mmol/L (3.5-5.1)
[2016-08-01] MEDS: GABAPENTIN 400 MG CAP PO SCH ×3 (08:18→20:01)
[2016-08-01] MEDS: METOPROLOL TARTRATE 25 MG TAB PO SCH ×2 (08:19→20:01)
[2016-08-01] MEDS: HEPARIN SOD 5000 UNIT/0.5 ML CARP SQ SCH ×2 (08:20→19:56)
[2016-08-01] MEDS ORDERED: INSULIN DETEMIR FLEXPEN/FLEX TOUCH 100 UNITS/ML 3ML SC SCH (09:15)
[2016-08-01] MEDS: INSULIN ASPART 100 UNITS/ML 3 ML PEN SC SCH ×4 (09:33→21:10)
--- NOTE | 2016-08-01 12:28 | Pharmacy Progress Note ---
Glycemic Control: Progress Nt Date of Service Aug 01, 2016. Scope Glycemic Pharmacist consulted by Dr Trujillo on 07/30/16 for glycemic control and to write orders per [facility] inpatient glycemic control protocol. Objective Accuchecks BSG (last 24hrs): Test 07/31/16 16:18 07/31/16 21:24 08/01/16 06:25 08/01/16 07:59 Bedside Glucose 221 mg/dl (70-90) 221 mg/dl (70-90) 199 mg/dl (70-90) Random Glucose 178 mg/dl (70-99) Test 08/01/16 11:20 Bedside Glucose 272 mg/dl (70-90) Laboratory Data (last 24hrs) Test 08/01/16 06:25 Anion Gap 9.0 mmol/L BUN/Creatinine Ratio 16.5 Blood Urea Nitrogen 26 mg/dl Creatinine 1.60 mg/dl Potassium Level 3.6 mmol/L Sodium Level 137 mmol/L White Blood Count 4.42 K/uL Red Blood Count 3.07 M/uL Hemoglobin 8.3 g/dL Hematocrit 25.2 % Mean Corpuscular Volume 82.1 fL Mean Corpuscular Hemoglobin 27.0 pg Mean Corpuscular Hemoglobin Concent 32.9 g/dl Platelet Count 120 K/uL Mean Platelet Volume 10.4 fL Neutrophils (%) (Auto) 79.8 % Lymphocytes (%) (Auto) 6.8 % Monocytes (%) (Auto) 10.2 % Eosinophils (%) (Auto) 2.5 % Basophils (%) (Auto) 0.2 % Neutrophils # (Auto) 3.53 K/uL Lymphocytes # (Auto) 0.30 K/uL Monocytes # (Auto) 0.45 K/uL Eosinophils # (Auto) 0.11 K/uL Basophils # (Auto) 0.01 K/uL HbA1c: Test 07/31/16 06:05 Hemoglobin A1c 6.8 % (4.5-5.6) H Recent Pertinent Medications Outpatient Anti-diabetic Regimen: * Levemir 25 units SQ HS * Metformin 1,000mg PO BIDM The patient is currently receiving: * Basal insulin: Levemir 30 units every 24 hours given at bedtime * Correctional Insulin: Novolog Correction per scale ACHS Goal Range: Low 110 mg/dL - High 150 mg/dL Correction Factor: 25 mg/dL/unit * Prandial insulin: Per carb ratio of 1 unit per 12 grams CHO consumed Risk Factors for Insulin Resistance: * Infection * Diet Assessment & Plan ASSESSMENT: * 65yo well controlled T2DM female per recent A1c * Patient has received 44 units of insulin over the past 24hrs * BSGs ranging 201-224mg/dl * AM fasting BSG is above goal range, basal insulin needs increased. Since basal insulin is currently being dose at HS only, will give a small one time dose this morning only. Pt with poor appetite yesterday and tight glycemic control as an outpatient on current dosing; therefore, hesitant to increase dose much further. * BSGs remain high throughout the day --> will tighten bolus insulin parameters * ADA & AACE recommend a goal blood sugar range 140-180 mg/dl for the majority of critically ill & non-critically ill patients. However, more stringent targets may be selected in individual cases. Will utilize more stringent target of 110-140mg/dl based on baseline tight glycemic control and age. PLAN FOR INPATIENT GLYCEMIC CONTROL: * INCREASE Basal insulin with Levemir to 30 units SQ HS + additional dose of Levemir 10 units this morning x 1 dose. Will continue to re-evaluate dosing and titrate based on BSG trends. * TIGHTEN Correctional Insulin with NOVOLOG per scale ACHS or Q6hrs while NPO. Additional checks + coverage at 0000 & 0400 * Goal Range: Low 110 mg/dL - High 140 mg/dL * Correction Factor: 20 mg/dL/unit * Nutritional / Prandial insulin per carb ratio of 1 unit per 8 grams CHO consumed * Please note that the plan above was derived based on current level of insulin resistance and hospital stress. These recommendations are appropriate for inpatient admission only. Plan of care upon discharge will need to be reassessed to avoid potential outpatient hypo/hyperglycemia. Thank you.
[2016-08-01] MEDS: CEFTRIAXONE SOD INJ 1 GM in DEXTROSE 5% ADD-VANTAGE 50ML 50 ML IV SCH (12:56)
[2016-08-01 13:34] LABS: FERRITIN 182.8 ng/ml (8.0-388.0)
--- NOTE | 2016-08-01 14:03 | DIAGNOSTIC IMAGING REPORT ---
EXAMINATION: RENAL ULTRASOUND CLINICAL HISTORY: acute renal failure COMPARISON STUDY: CT scan dated 05/13/2016 FINDINGS: The right kidney measures 13.5 cm. The left kidney measures 11.9 cm. There is mild right-sided hydronephrosis. No left-sided hydronephrosis is evident. There is a 1.9 cm upper pole right renal cyst. There is a 9 mm lower pole left renal calculus. There is a 17 mm upper pole left renal calculus. No bladder lesions are visualized. Neither ureteral jet was identified. Incidental note is made of cholelithiasis with borderline gallbladder wall thickening. The spleen is enlarged measuring 20 cm IMPRESSION : 1. Bilateral nephrolithiasis 2. Mild right-sided hydronephrosis 3. 19 mm upper pole right renal cyst 4. Splenomegaly 5. Cholelithiasis with borderline gallbladder wall thickening Electronically signed by: Jake Arango M.D. 08/01/2016 2:01 PM Dictated Date/Time: 08/01/2016 1:57 PM
--- NOTE | 2016-08-01 18:19 | Progress Note ---
Medicine Progress Note Date & Time of Visit: Aug 01, 2016 at 18:19. Subjective seen resting in bed, bright, pleasant states she is feeling improved no chest pain, dyspnea, cough, abdominal pain no diarrhea or changes with urination denies other symptoms Objective Last 8 Hrs Date Time Temp Pulse Resp B/P Pulse Ox O2 Delivery O2 Flow Rate FiO2 08/01/16 16:22 37.0 90 18 132/77 100 Room Air 08/01/16 16:00 Room Air Physical Exam: General- oriented x 3, not in distress, speaks in sentences with no effort Eyes- anicteric Neck- no JVD Lungs- clear to auscultation bilaterally, no rales/wheezes Heart-normal rate, regular rhythm; no murmur Abdomen- normal bowel sounds, soft, nontender Extremities- no pretibial edema, no calf tenderness; peripheral pulses intact Neuro- alert, oriented x 3; no gross focal deficits Skin- (+) hyperpigmented raised lesion on the left neck Laboratory Results: Last 24 Hours Test 07/31/16 21:24 08/01/16 06:25 08/01/16 07:59 08/01/16 11:20 Bedside Glucose 221 mg/dl 199 mg/dl 272 mg/dl White Blood Count 4.42 K/uL Red Blood Count 3.07 M/uL Hemoglobin 8.3 g/dL Hematocrit 25.2 % Mean Corpuscular Volume 82.1 fL Mean Corpuscular Hemoglobin 27.0 pg Mean Corpuscular Hemoglobin Concent 32.9 g/dl Platelet Count 120 K/uL Mean Platelet Volume 10.4 fL Neutrophils (%) (Auto) 79.8 % Lymphocytes (%) (Auto) 6.8 % Monocytes (%) (Auto) 10.2 % Eosinophils (%) (Auto) 2.5 % Basophils (%) (Auto) 0.2 % Neutrophils # (Auto) 3.53 K/uL Lymphocytes # (Auto) 0.30 K/uL Monocytes # (Auto) 0.45 K/uL Eosinophils # (Auto) 0.11 K/uL Basophils # (Auto) 0.01 K/uL RDW Standard Deviation 47.0 fL RDW Coefficient of Variation 15.6 % Immature Granulocyte % (Auto) 0.5 % Immature Granulocyte # (Auto) 0.02 K/uL Red Blood Cell Morphology Unremarkable Peripheral Blood Smear Path Consult Sodium Level 137 mmol/L Potassium Level 3.6 mmol/L Chloride Level 104 mmol/L Carbon Dioxide Level 24 mmol/L Anion Gap 9.0 mmol/L Blood Urea Nitrogen 26 mg/dl Creatinine 1.60 mg/dl Est Creatinine Clear Calc Drug Dose 40.9 ml/min Estimated GFR () 38.8 Estimated GFR (Non- 33.5 BUN/Creatinine Ratio 16.5 Random Glucose 178 mg/dl Calcium Level 7.8 mg/dl Magnesium Level 2.1 mg/dl Iron Level 14 mcg/dl Total Iron Binding Capacity 173 mcg/dl Transferrin 132 mg/dl Transferrin % Saturation 8 % Ferritin 182.8 ng/ml Test 08/01/16 12:25 08/01/16 16:37 Bedside Glucose 235 mg/dl Assessment & Plan IMPRESSION : 1. Bilateral nephrolithiasis 2. Mild right-sided hydronephrosis 3. 19 mm upper pole right renal cyst 4. Splenomegaly 5. Cholelithiasis with borderline gallbladder wall thickening 65 year old female with history of DM, HTN, HLD presenting with fever and chills x 5 days. POSSIBLE SEPSIS SECONDARY TO: UTI, E coli blood cultures: negative so far urine culture: E coli IV fluids empiric Zosyn Day 2--> change to Ceftriaxone Day 1 C DIFF ruled out diarrhea resolved C diff negative continues to improve Flu PCR: negative ACUTE RENAL FAILURE ON CKD 3 likely pre renal from dehydration, also from sepsis crea remains at 1.6 (baseline 0.9) Renal US: no obstruction, (+) nephrolithiasis, renal cyst, mild right hydro IV fluids hold Losartan monitor crea may need Urology consult PANCYTOPENIA from Sepsis? check PBS monitor anemia panel: iron deficiency, replace HYPERGLYCEMIA DM 2 ISS and Lantus Glycemic control consult HYPERTENSION stable continue Metoprolol hold Lisinopril due to acute renal failure monitor BOWDEN CIRRHOSIS LFTs stable POSSIBLE SARCOIDOSIS corrected calcium 9.5 NECK SKIN LESION Derm ff up as outpatient SPLENOMEGALY in the setting of pancytopenia scheduled for Hematology consult as outpatient CHOLELITHIASIS asymptomatic DVT prophylaxis heparin FULL CODE Disposition pending Current Inpatient Medications: Current Inpatient Medications Medications (Trade) Dose Ordered Sig/Lea Route Start Time Stop Time Status Last Admin Dose Admin Sodium Chloride (Nss 1000ml) 1,000 ml @ 125 mls/hr Q8H IV 07/30/16 20:43 08/29/16 20:42 08/01/16 12:55 125 MLS/HR Insulin Aspart (novoLOG ASPART) SLIDING SCALE If C... ACHS SC 07/30/16 21:00 08/29/16 20:59 08/01/16 18:09 9 UNITS Glucose (Glucose 40% Gel) 15-30 GRAMS 15 GRAMS... UD PRN PO 07/30/16 18:15 08/29/16 18:14 Glucose (Glucose Chew Tab) 4-8 Tablets 4 Tabl... UD PRN PO 07/30/16 18:15 08/29/16 18:14 Dextrose (Dextrose 50% 50ML Syringe) 25-50ML OF 50% DW IV FOR... UD PRN IV 07/30/16 18:15 08/29/16 18:14 Glucagon (Glucagon Inj) 1 mg UD PRN SQ 07/30/16 18:15 08/29/16 18:14 Miscellaneous Information (Consult Glycemic Management Pharmacy) 1 ea UD PRN N/A 07/30/16 18:27 08/29/16 18:26 Clonazepam (Klonopin Tab) 0.5 mg HS PRN PO 07/30/16 18:15 08/29/16 18:14 07/31/16 00:35 0.5 MG Multivitamins (Multivitamin Tab) 1 tab HS PO 07/30/16 21:00 08/29/16 20:59 07/31/16 21:50 1 TAB Ranitidine HCl (zANTac TAB) 150 mg HS PO 07/30/16 21:00 08/29/16 20:59 07/31/16 21:50 150 MG Clonidine HCl (Catapres Tab) 0.1 mg Q6H PRN PO 07/30/16 18:15 08/29/16 18:14 Gabapentin (Neurontin Cap) 400 mg TID PO 07/30/16 21:00 08/29/16 20:59 08/01/16 14:10 400 MG Ondansetron HCl (Zofran Inj) 4 mg Q6H PRN IV 07/30/16 21:30 08/29/16 21:29 07/30/16 22:34 4 MG Insulin Detemir (Levemir Flexpen/ FlexTouch) 30 unit HS SC 07/31/16 21:00 08/30/16 20:59 1/5/17 21:55 30 UNIT Heparin Sodium (Porcine) (Heparin Sq 5000 Unit/0.5ml) 5,000 unit Q12 SQ 07/31/16 21:00 08/30/16 20:59 Metoprolol Tartrate (Lopressor Tab) 12.5 mg BID PO 07/31/16 20:00 08/30/16 20:59 08/01/16 08:19 12.5 MG Insulin Aspart SLIDING SCALE If C... TODAY@0000,0400 SC 08/02/16 00:00 08/02/16 04:01 Ceftriaxone Sodium/Dextrose (Rocephin Inj/ Dextrose Add-[place] 50ML) 50 ml @ 100 mls/hr Q24H IV 08/01/16 13:00 08/06/16 12:59 08/01/16 12:56 100 MLS/HR
[2016-08-01] MEDS: RANITIDINE HCL 150 MG TAB PO SCH (20:00)
[2016-08-01] MEDS: MULTIVITAMIN TAB PO SCH (20:02)
[2016-08-01] MEDS: INSULIN DETEMIR FLEXPEN/FLEX TOUCH 100 UNITS/ML 3ML SC SCH (21:09)
[2016-08-02] MEDS: INSULIN ASPART 100 UNITS/ML 3 ML PEN SC SCH ×6 (01:00→20:55)
[2016-08-02] MEDS: SODIUM CHLORIDE 0.9% 1000ML 1,000 ML IV SCH ×2 (05:31→13:02)
[2016-08-02 07:06] VITALS: BP 149/79; PULSE 98; TEMP 36.6; O2SAT 98
[2016-08-02 07:11] LABS: BASO % 0.3 %; BASO ABS # 0.01 K/uL (0-0.2); EOS % 2.8 %; HEMATOCRIT 22.8 % (37-47); IG% 0.8 %; LYMPH % 11.3 %; LYMPH ABS # 0.45 K/uL (1.2-3.4); MEAN CELL VOLUME 81.7 fL (80-100); MEAN CORPUSCULAR HEMOGLOBIN 26.9 pg (25-34); MEAN CORPUSCULAR HGB CONC 32.9 g/dl (32-36); MEAN PLATELET VOLUME 10.1 fL (7.4-10.4); MONO % 9.5 %; NEUT % 75.3 %; PLATELET COUNT 132 K/uL (130-400); RED BLOOD COUNT 2.79 M/uL (4.2-5.4); WHITE BLOOD COUNT 3.98 K/uL (4.8-10.8)
[2016-08-02 07:39] LABS: ANISOCYTOSIS PRESENT; COMPLETE YES
[2016-08-02 07:43] LABS: BUN/CREATININE RATIO 17.6 (10-20); CALCIUM 7.5 mg/dl (8.5-10.1); CREATININE 1.2 mg/dl (0.60-1.20); MAGNESIUM 2.2 mg/dl (1.8-2.4); POTASSIUM 3.3 mmol/L (3.5-5.1)
[2016-08-02] MEDS: HEPARIN SOD 5000 UNIT/0.5 ML CARP SQ SCH (09:00)
[2016-08-02] MEDS: GABAPENTIN 400 MG CAP PO SCH ×3 (09:02→20:45)
[2016-08-02] MEDS: FERROUS SULFATE 325 MG TAB PO SCH ×2 (09:03→17:56)
[2016-08-02] MEDS: METOPROLOL TARTRATE 25 MG TAB PO SCH ×2 (09:04→20:46)
[2016-08-02] MEDS: CEFTRIAXONE SOD INJ 1 GM in DEXTROSE 5% ADD-VANTAGE 50ML 50 ML IV SCH (12:56)
[2016-08-02 15:07] VITALS: BP 130/78; PULSE 83; TEMP 36.5; O2SAT 98
--- NOTE | 2016-08-02 17:43 | Progress Note ---
Medicine Progress Note Date & Time of Visit: Aug 02, 2016 at 17:37. Subjective patient states she feels better overall denies dyspnea, dizziness, chest pain no melena/hematochezia, abdominal pain no other symptoms Objective Last 8 Hrs Date Time Temp Pulse Resp B/P Pulse Ox O2 Delivery O2 Flow Rate FiO2 08/02/16 16:00 Room Air 08/02/16 15:07 36.5 83 18 130/78 98 Room Air Physical Exam: General- oriented x 3, not in distress, speaks in sentences with no effort Neck- no JVD Lungs- clear b/s b/l , no rales/wheeze Heart-normal rate, regular rhythm; no murmur Abdomen- normal bowel sounds, soft, nontender Extremities- no pretibial edema, no calf tenderness; peripheral pulses intact Neuro- alert, oriented x 3; no gross focal deficits Skin- (+) hyperpigmented raised lesion on the left neck Laboratory Results: Last 24 Hours Test 08/01/16 20:49 08/02/16 00:00 08/02/16 01:03 08/02/16 05:13 Bedside Glucose 203 mg/dl 122 mg/dl 93 mg/dl Stool Occult Blood NEGATIVE Test 08/02/16 06:45 08/02/16 06:46 08/02/16 07:37 08/02/16 11:26 White Blood Count 3.98 K/uL Red Blood Count 2.79 M/uL Hemoglobin 7.5 g/dL Hematocrit 22.8 % Mean Corpuscular Volume 81.7 fL Mean Corpuscular Hemoglobin 26.9 pg Mean Corpuscular Hemoglobin Concent 32.9 g/dl Platelet Count 132 K/uL Mean Platelet Volume 10.1 fL Neutrophils (%) (Auto) 75.3 % Lymphocytes (%) (Auto) 11.3 % Monocytes (%) (Auto) 9.5 % Eosinophils (%) (Auto) 2.8 % Basophils (%) (Auto) 0.3 % Neutrophils # (Auto) 3.00 K/uL Lymphocytes # (Auto) 0.45 K/uL Monocytes # (Auto) 0.38 K/uL Eosinophils # (Auto) 0.11 K/uL Basophils # (Auto) 0.01 K/uL RDW Standard Deviation 46.6 fL RDW Coefficient of Variation 15.4 % Immature Granulocyte % (Auto) 0.8 % Immature Granulocyte # (Auto) 0.03 K/uL Anisocytosis PRESENT Sodium Level 139 mmol/L Potassium Level 3.3 mmol/L Chloride Level 107 mmol/L Carbon Dioxide Level 23 mmol/L Anion Gap 9.0 mmol/L Blood Urea Nitrogen 21 mg/dl Creatinine 1.20 mg/dl Est Creatinine Clear Calc Drug Dose 54.5 ml/min Estimated GFR () 54.9 Estimated GFR (Non- 47.4 BUN/Creatinine Ratio 17.6 Random Glucose 99 mg/dl Calcium Level 7.5 mg/dl Magnesium Level 2.2 mg/dl Vitamin B12 Level 623 pg/mL Folate 16.46 ng/mL Bedside Glucose 107 mg/dl 181 mg/dl Test 08/02/16 16:26 08/02/16 17:26 Bedside Glucose 204 mg/dl Date/Time Source Procedure Growth Status 08/02/16 09:43 Stool C.difficile Toxin B Gene (PCR) - Final No C. difficile toxin B gene detected Complete 08/02/16 09:43 Stool Shiga Toxin Test Pending Received 08/02/16 09:43 Stool Stool Culture Pending Received Assessment & Plan IMPRESSION : 1. Bilateral nephrolithiasis 2. Mild right-sided hydronephrosis 3. 19 mm upper pole right renal cyst 4. Splenomegaly 5. Cholelithiasis with borderline gallbladder wall thickening 65 year old female with history of DM, HTN, HLD presenting with fever and chills x 5 days. POSSIBLE SEPSIS SECONDARY TO: UTI, E coli blood cultures: negative so far urine culture: E coli IV fluids given empiric Zosyn Day 2--> changed to Ceftriaxone Day 2 C DIFF ruled out diarrhea resolved C diff negative continues to improve Flu PCR: negative ACUTE RENAL FAILURE ON CKD 3 likely pre renal from dehydration, also from sepsis Renal US: no obstruction, (+) nephrolithiasis, renal cyst, mild right hydro IV fluids given hold Losartan - crea improved to 1/2 may need Urology consult as outpatient PANCYTOPENIA from Sepsis? check PBS: no signs of blood dyscracia at this time needs to be monitored as outpatient ANEMIA, IRON DEFICIENCY anemia panel: iron deficiency, replace Hg down to 7.5, repeat CBC tonight needs outpatient ff up, patient had colonoscopy in 2016 (+) diverticulosis, scheduled for EGD next week HYPERGLYCEMIA DM 2 ISS and Lantus Glycemic control consult HYPERTENSION stable continue Metoprolol hold Lisinopril due to acute renal failure monitor BOWDEN CIRRHOSIS LFTs stable POSSIBLE SARCOIDOSIS corrected calcium 9.5 NECK SKIN LESION Derm ff up as outpatient SPLENOMEGALY in the setting of pancytopenia scheduled for Hematology consult as outpatient CHOLELITHIASIS asymptomatic DVT prophylaxis hold heparin until gi bleed ruled out FULL CODE Disposition pending Current Inpatient Medications: Current Inpatient Medications Medications (Trade) Dose Ordered Sig/Lea Route Start Time Stop Time Status Last Admin Dose Admin Sodium Chloride (Nss 1000ml) 1,000 ml @ 125 mls/hr Q8H IV 07/30/16 20:43 08/29/16 20:42 08/02/16 13:02 125 MLS/HR Insulin Aspart (novoLOG ASPART) SLIDING SCALE If C... ACHS SC 07/30/16 21:00 08/29/16 20:59 08/02/16 12:59 9 UNITS Glucose (Glucose 40% Gel) 15-30 GRAMS 15 GRAMS... UD PRN PO 07/30/16 18:15 08/29/16 18:14 Glucose (Glucose Chew Tab) 4-8 Tablets 4 Tabl... UD PRN PO 07/30/16 18:15 08/29/16 18:14 Dextrose (Dextrose 50% 50ML Syringe) 25-50ML OF 50% DW IV FOR... UD PRN IV 07/30/16 18:15 08/29/16 18:14 Glucagon (Glucagon Inj) 1 mg UD PRN SQ 07/30/16 18:15 08/29/16 18:14 Miscellaneous Information (Consult Glycemic Management Pharmacy) 1 ea UD PRN N/A 07/30/16 18:27 08/29/16 18:26 Clonazepam (Klonopin Tab) 0.5 mg HS PRN PO 07/30/16 18:15 08/29/16 18:14 07/31/16 00:35 0.5 MG Multivitamins (Multivitamin Tab) 1 tab HS PO 07/30/16 21:00 08/29/16 20:59 08/01/16 20:02 1 TAB Ranitidine HCl (zANTac TAB) 150 mg HS PO 07/30/16 21:00 08/29/16 20:59 08/01/16 20:00 150 MG Clonidine HCl (Catapres Tab) 0.1 mg Q6H PRN PO 07/30/16 18:15 08/29/16 18:14 Gabapentin (Neurontin Cap) 400 mg TID PO 07/30/16 21:00 08/29/16 20:59 08/02/16 15:17 400 MG Ondansetron HCl (Zofran Inj) 4 mg Q6H PRN IV 07/30/16 21:30 08/29/16 21:29 07/30/16 22:34 4 MG Insulin Detemir (Levemir Flexpen/ FlexTouch) 30 unit HS SC 07/31/16 21:00 08/30/16 20:59 08/01/16 21:09 30 UNIT Heparin Sodium (Porcine) (Heparin Sq 5000 Unit/0.5ml) 5,000 unit Q12 SQ 07/31/16 21:00 08/30/16 20:59 Metoprolol Tartrate 12.5 mg 12.5 mg BID PO 07/31/16 20:00 08/30/16 20:59 08/02/16 09:04 12.5 MG Ceftriaxone Sodium/Dextrose (Rocephin Inj/ Dextrose Add-[place] 50ML) 50 ml @ 100 mls/hr Q24H IV 08/01/16 13:00 08/06/16 12:59 08/02/16 12:56 100 MLS/HR Ferrous Sulfate (Feosol Tab) 325 mg BIDM PO 08/02/16 08:00 09/01/16 07:59 08/02/16 09:03 325 MG
[2016-08-02 18:08] LABS: BASO % 0.2 %; BASO ABS # 0.01 K/uL (0-0.2); EOS % 4.7 %; HEMATOCRIT 23.9 % (37-47); IG% 0.7 %; LYMPH % 12.4 %; LYMPH ABS # 0.53 K/uL (1.2-3.4); MEAN CELL VOLUME 81.8 fL (80-100); MEAN CORPUSCULAR HEMOGLOBIN 27.7 pg (25-34); MEAN CORPUSCULAR HGB CONC 33.9 g/dl (32-36); MEAN PLATELET VOLUME 9.2 fL (7.4-10.4); MONO % 9.3 %; NEUT % 72.7 %; PLATELET COUNT 130 K/uL (130-400); RED BLOOD COUNT 2.92 M/uL (4.2-5.4); WHITE BLOOD COUNT 4.28 K/uL (4.8-10.8)
[2016-08-02 18:43] LABS: COMPLETE YES
[2016-08-02] MEDS: RANITIDINE HCL 150 MG TAB PO SCH (20:45)
[2016-08-02] MEDS: MULTIVITAMIN TAB PO SCH (20:47)
[2016-08-02] MEDS: INSULIN DETEMIR FLEXPEN/FLEX TOUCH 100 UNITS/ML 3ML SC SCH (20:55)
[2016-08-02] MEDS ORDERED: POTASSIUM CHLORIDE 20 MEQ TABCR PO ONE (21:30)
[2016-08-03] VITALS (17 sets, daily range): BP systolic 113–160; BP diastolic 69–90; PULSE 66–99; TEMP 36.4–36.8; O2SAT 98–100
[2016-08-03 06:24] LABS: BASO % 0.2 %; BASO ABS # 0.01 K/uL (0-0.2); EOS % 4.9 %; HEMATOCRIT 22.6 % (37-47); IG% 0.7 %; LYMPH % 13.4 %; LYMPH ABS # 0.55 K/uL (1.2-3.4); MEAN CELL VOLUME 81.9 fL (80-100); MEAN CORPUSCULAR HEMOGLOBIN 27.2 pg (25-34); MEAN CORPUSCULAR HGB CONC 33.2 g/dl (32-36); MEAN PLATELET VOLUME 9.9 fL (7.4-10.4); MONO % 11.5 %; NEUT % 69.3 %; PLATELET COUNT 139 K/uL (130-400); RED BLOOD COUNT 2.76 M/uL (4.2-5.4); WHITE BLOOD COUNT 4.09 K/uL (4.8-10.8)
[2016-08-03 07:00] LABS: BUN/CREATININE RATIO 16.8 (10-20); CALCIUM 7.7 mg/dl (8.5-10.1); CREATININE 1.1 mg/dl (0.60-1.20); MAGNESIUM 2.2 mg/dl (1.8-2.4); POTASSIUM 3.8 mmol/L (3.5-5.1)
[2016-08-03 07:37] LABS: COMPLETE YES
--- NOTE | 2016-08-03 08:47 | Progress Note ---
Medicine Progress Note Date & Time of Visit: Aug 03, 2016 at 08:40. Subjective seen sitting up in bed, having breakfast states she continues to feel improved denies abdominal pain, nausea, GI bleed symptoms no chest pain, dyspnea, dizziness (+) loose stools no other symptoms Objective Last 8 Hrs Date Time Temp Pulse Resp B/P Pulse Ox O2 Delivery O2 Flow Rate FiO2 08/03/16 08:00 Room Air 08/03/16 07:06 36.8 74 20 113/69 99 Room Air Physical Exam: General- oriented x 3, not in distress, speaks in sentences with no effort Neck- no JVD Lungs- clear breath sounds b/l, no rales/wheeze Heart-normal rate, regular rhythm; no murmur Abdomen- normal bowel sounds, soft, nontender Extremities- no pretibial edema, no calf tenderness; peripheral pulses intact Neuro- alert, oriented x 3; no gross focal deficits Skin- (+) hyperpigmented raised lesion on the left neck Laboratory Results: Last 24 Hours Test 08/02/16 11:26 08/02/16 16:26 08/02/16 18:01 08/02/16 20:23 Bedside Glucose 181 mg/dl 204 mg/dl 165 mg/dl White Blood Count 4.28 K/uL Red Blood Count 2.92 M/uL Hemoglobin 8.1 g/dL Hematocrit 23.9 % Mean Corpuscular Volume 81.8 fL Mean Corpuscular Hemoglobin 27.7 pg Mean Corpuscular Hemoglobin Concent 33.9 g/dl Platelet Count 130 K/uL Mean Platelet Volume 9.2 fL Neutrophils (%) (Auto) 72.7 % Lymphocytes (%) (Auto) 12.4 % Monocytes (%) (Auto) 9.3 % Eosinophils (%) (Auto) 4.7 % Basophils (%) (Auto) 0.2 % Neutrophils # (Auto) 3.11 K/uL Lymphocytes # (Auto) 0.53 K/uL Monocytes # (Auto) 0.40 K/uL Eosinophils # (Auto) 0.20 K/uL Basophils # (Auto) 0.01 K/uL RDW Standard Deviation 46.3 fL RDW Coefficient of Variation 15.5 % Immature Granulocyte % (Auto) 0.7 % Immature Granulocyte # (Auto) 0.03 K/uL Red Blood Cell Morphology Unremarkable Test 08/03/16 05:46 08/03/16 07:29 White Blood Count 4.09 K/uL Red Blood Count 2.76 M/uL Hemoglobin 7.5 g/dL Hematocrit 22.6 % Mean Corpuscular Volume 81.9 fL Mean Corpuscular Hemoglobin 27.2 pg Mean Corpuscular Hemoglobin Concent 33.2 g/dl Platelet Count 139 K/uL Mean Platelet Volume 9.9 fL Neutrophils (%) (Auto) 69.3 % Lymphocytes (%) (Auto) 13.4 % Monocytes (%) (Auto) 11.5 % Eosinophils (%) (Auto) 4.9 % Basophils (%) (Auto) 0.2 % Neutrophils # (Auto) 2.83 K/uL Lymphocytes # (Auto) 0.55 K/uL Monocytes # (Auto) 0.47 K/uL Eosinophils # (Auto) 0.20 K/uL Basophils # (Auto) 0.01 K/uL RDW Standard Deviation 46.5 fL RDW Coefficient of Variation 15.4 % Immature Granulocyte % (Auto) 0.7 % Immature Granulocyte # (Auto) 0.03 K/uL Red Blood Cell Morphology Unremarkable Sodium Level 142 mmol/L Potassium Level 3.8 mmol/L Chloride Level 110 mmol/L Carbon Dioxide Level 25 mmol/L Anion Gap 7.0 mmol/L Blood Urea Nitrogen 19 mg/dl Creatinine 1.10 mg/dl Est Creatinine Clear Calc Drug Dose 59.4 ml/min Estimated GFR () 61.0 Estimated GFR (Non- 52.6 BUN/Creatinine Ratio 16.8 Random Glucose 122 mg/dl Calcium Level 7.7 mg/dl Magnesium Level 2.2 mg/dl Bedside Glucose 128 mg/dl Date/Time Source Procedure Growth Status 08/02/16 09:43 Stool C.difficile Toxin B Gene (PCR) - Final No C. difficile toxin B gene detected Complete 08/02/16 09:43 Stool Shiga Toxin Test Pending Received 08/02/16 09:43 Stool Stool Culture Pending Received Assessment & Plan IMPRESSION : 1. Bilateral nephrolithiasis 2. Mild right-sided hydronephrosis 3. 19 mm upper pole right renal cyst 4. Splenomegaly 5. Cholelithiasis with borderline gallbladder wall thickening 65 year old female with history of DM, HTN, HLD presenting with fever and chills x 5 days. POSSIBLE SEPSIS SECONDARY TO: UTI, E coli blood cultures: negative so far urine culture: E coli IV fluids given empiric Zosyn Day 2--> changed to Ceftriaxone Day 3 C DIFF ruled out (+) diarrhea again C diff negative repeat C diff Ag continues to improve from infection standpoint Flu PCR: negative ACUTE RENAL FAILURE ON CKD 3 likely pre renal from dehydration, also from sepsis Renal US: no obstruction, (+) nephrolithiasis, renal cyst, mild right hydro IV fluids given hold Losartan - crea improved to 1.1 may need Urology consult as outpatient PANCYTOPENIA from Sepsis? check PBS: no signs of blood dyscracia at this time WBC stable, Plt normal (+) anemia needs to be monitored as outpatient, (+) splenomegaly ANEMIA, IRON DEFICIENCY anemia panel: iron deficiency, replace with Fe BID Hg down to 7.5- no overt signs of bleeding needs outpatient ff up, patient had colonoscopy in 2015 (+) diverticulosis, scheduled for EGD next week - will transfuse 2 units PRBC monitor CBC HYPERGLYCEMIA DM 2 ISS and Lantus Glycemic control consult HYPERTENSION stable continue Metoprolol hold Lisinopril due to acute renal failure monitor BOWDEN CIRRHOSIS LFTs stable POSSIBLE SARCOIDOSIS corrected calcium 9.5 NECK SKIN LESION Derm ff up as outpatient SPLENOMEGALY in the setting of pancytopenia scheduled for Hematology consult as outpatient CHOLELITHIASIS asymptomatic DVT prophylaxis hold heparin until gi bleed ruled out SCDs ambulation FULL CODE Disposition possible d/c home tomorrow when Hg stable Current Inpatient Medications: Current Inpatient Medications Medications (Trade) Dose Ordered Sig/Lea Route Start Time Stop Time Status Last Admin Dose Admin Insulin Aspart (novoLOG ASPART) SLIDING SCALE If C... ACHS SC 07/30/16 21:00 08/29/16 20:59 08/02/16 20:55 2 UNITS Glucose (Glucose 40% Gel) 15-30 GRAMS 15 GRAMS... UD PRN PO 07/30/16 18:15 08/29/16 18:14 Glucose (Glucose Chew Tab) 4-8 Tablets 4 Tabl... UD PRN PO 07/30/16 18:15 08/29/16 18:14 Dextrose (Dextrose 50% 50ML Syringe) 25-50ML OF 50% DW IV FOR... UD PRN IV 07/30/16 18:15 08/29/16 18:14 Glucagon (Glucagon Inj) 1 mg UD PRN SQ 07/30/16 18:15 08/29/16 18:14 Miscellaneous Information (Consult Glycemic Management Pharmacy) 1 ea UD PRN N/A 07/30/16 18:27 08/29/16 18:26 Clonazepam (Klonopin Tab) 0.5 mg HS PRN PO 07/30/16 18:15 08/29/16 18:14 07/31/16 00:35 0.5 MG Multivitamins (Multivitamin Tab) 1 tab HS PO 07/30/16 21:00 08/29/16 20:59 08/02/16 20:47 1 TAB Ranitidine HCl (zANTac TAB) 150 mg HS PO 07/30/16 21:00 08/29/16 20:59 08/02/16 20:45 150 MG Clonidine HCl (Catapres Tab) 0.1 mg Q6H PRN PO 07/30/16 18:15 08/29/16 18:14 Gabapentin (Neurontin Cap) 400 mg TID PO 07/30/16 21:00 08/29/16 20:59 08/02/16 20:45 400 MG Ondansetron HCl (Zofran Inj) 4 mg Q6H PRN IV 07/30/16 21:30 08/29/16 21:29 07/30/16 22:34 4 MG Insulin Detemir (Levemir Flexpen/ FlexTouch) 30 unit HS SC 07/31/16 21:00 08/30/16 20:59 08/02/16 20:55 30 UNIT Metoprolol Tartrate 12.5 mg 12.5 mg BID PO 07/31/16 20:00 08/30/16 20:59 08/02/16 20:46 12.5 MG Ceftriaxone Sodium/Dextrose (Rocephin Inj/ Dextrose Add-[place] 50ML) 50 ml @ 100 mls/hr Q24H IV 08/01/16 13:00 08/06/16 12:59 08/02/16 12:56 100 MLS/HR Ferrous Sulfate (Feosol Tab) 325 mg BIDM PO 08/02/16 08:00 09/01/16 07:59 08/02/16 17:56 325 MG
[2016-08-03] MEDS: GABAPENTIN 400 MG CAP PO SCH ×3 (08:55→21:13)
[2016-08-03] MEDS: FERROUS SULFATE 325 MG TAB PO SCH ×2 (08:56→17:44)
[2016-08-03] MEDS: INSULIN ASPART 100 UNITS/ML 3 ML PEN SC SCH ×4 (09:00→21:16)
[2016-08-03] MEDS: METOPROLOL TARTRATE 25 MG TAB PO SCH ×2 (09:10→21:14)
[2016-08-03] MEDS ORDERED: FUROSEMIDE INJ 20 MG in SYRINGE 0 ML IV SCH (10:00)
--- NOTE | 2016-08-03 10:58 | Pharmacy Progress Note ---
Glycemic Control: Progress Nt Date of Service Aug 03, 2016. Scope Glycemic Pharmacist consulted by Dr Trujillo on 07/30/16 for glycemic control and to write orders per [facility] inpatient glycemic control protocol. Objective Accuchecks BSG (last 24hrs): Test 08/02/16 11:26 08/02/16 16:26 08/02/16 20:23 08/03/16 05:46 Bedside Glucose 181 mg/dl (70-90) 204 mg/dl (70-90) 165 mg/dl (70-90) Random Glucose 122 mg/dl (70-99) Test 08/03/16 07:29 Bedside Glucose 128 mg/dl (70-90) Laboratory Data (last 24hrs) Test 08/02/16 18:01 08/03/16 05:46 White Blood Count 4.28 K/uL 4.09 K/uL Red Blood Count 2.92 M/uL 2.76 M/uL Hemoglobin 8.1 g/dL 7.5 g/dL Hematocrit 23.9 % 22.6 % Mean Corpuscular Volume 81.8 fL 81.9 fL Mean Corpuscular Hemoglobin 27.7 pg 27.2 pg Mean Corpuscular Hemoglobin Concent 33.9 g/dl 33.2 g/dl Platelet Count 130 K/uL 139 K/uL Mean Platelet Volume 9.2 fL 9.9 fL Neutrophils (%) (Auto) 72.7 % 69.3 % Lymphocytes (%) (Auto) 12.4 % 13.4 % Monocytes (%) (Auto) 9.3 % 11.5 % Eosinophils (%) (Auto) 4.7 % 4.9 % Basophils (%) (Auto) 0.2 % 0.2 % Neutrophils # (Auto) 3.11 K/uL 2.83 K/uL Lymphocytes # (Auto) 0.53 K/uL 0.55 K/uL Monocytes # (Auto) 0.40 K/uL 0.47 K/uL Eosinophils # (Auto) 0.20 K/uL 0.20 K/uL Basophils # (Auto) 0.01 K/uL 0.01 K/uL Anion Gap 7.0 mmol/L BUN/Creatinine Ratio 16.8 Blood Urea Nitrogen 19 mg/dl Creatinine 1.10 mg/dl Potassium Level 3.8 mmol/L Sodium Level 142 mmol/L HbA1c: Test 07/31/16 06:05 Hemoglobin A1c 6.8 % (4.5-5.6) H Recent Pertinent Medications Outpatient Anti-diabetic Regimen: * Levemir 25 units SQ HS * Metformin 1,000mg PO BIDM The patient is currently receiving: * Basal insulin: Levemir 30 units every 24 hours given at bedtime * Correctional Insulin: Novolog Correction per scale ACHS Goal Range: Low 110 mg/dL - High 150 mg/dL Correction Factor: 20 mg/dL/unit * Prandial insulin: Per carb ratio of 1 unit per 8 grams CHO consumed Risk Factors for Insulin Resistance: * Infection * Diet Assessment & Plan ASSESSMENT: * 65yo well controlled T2DM female per recent A1c * Patient has been requiring ~ 60 units of insulin per day with adequate control * BSGs ranging 128-204mg/dl * AM fasting BSG is in goal range --> no changes need made to basal insulin * Post prandial BSGs in goal range after bolus insulin parameters tightened yesterday at dinner --> no changes needed * Regimen is currently split 50%:50% between basal:prandial insulin which is the preferred distribution for inpatient use to prevent hypo with PO intake changes. * ADA & AACE recommend a goal blood sugar range 140-180 mg/dl for the majority of critically ill & non-critically ill patients. However, more stringent targets may be selected in individual cases. Will utilize more stringent target of 110-140mg/dl based on baseline tight glycemic control and age. PLAN FOR INPATIENT GLYCEMIC CONTROL: * Continue Basal insulin with Levemir 30 units SQ HS * Continue Correctional Insulin with NOVOLOG per scale ACHS or Q6hrs while NPO. * Goal Range: Low 110 mg/dL - High 140 mg/dL * Correction Factor: 20 mg/dL/unit * Nutritional / Prandial insulin per carb ratio of 1 unit per 8 grams CHO consumed * Please note that the plan above was derived based on current level of insulin resistance and hospital stress. These recommendations are appropriate for inpatient admission only. Plan of care upon discharge will need to be reassessed to avoid potential outpatient hypo/hyperglycemia. Thank you.
[2016-08-03] MEDS: CEFTRIAXONE SOD INJ 1 GM in DEXTROSE 5% ADD-VANTAGE 50ML 50 ML IV SCH (15:01)
[2016-08-03] MEDS: RANITIDINE HCL 150 MG TAB PO SCH (21:13)
[2016-08-03] MEDS: MULTIVITAMIN TAB PO SCH (21:13)
[2016-08-03] MEDS: INSULIN DETEMIR FLEXPEN/FLEX TOUCH 100 UNITS/ML 3ML SC SCH (21:15)
[2016-08-04 00:25] VITALS: BP 133/71; PULSE 75; TEMP 36.5; O2SAT 99
[2016-08-04 07:27] LABS: BASO % 0.5 %; BASO ABS # 0.02 K/uL (0-0.2); COMPLETE YES; EOS % 5.6 %; HEMATOCRIT 28.1 % (37-47); IG% 1.1 %; LYMPH % 16.7 %; LYMPH ABS # 0.62 K/uL (1.2-3.4); MEAN CELL VOLUME 82.9 fL (80-100); MEAN CORPUSCULAR HEMOGLOBIN 27.4 pg (25-34); MEAN CORPUSCULAR HGB CONC 33.1 g/dl (32-36); MEAN PLATELET VOLUME 9.8 fL (7.4-10.4); MONO % 7.8 %; NEUT % 68.3 %; PLATELET COUNT 152 K/uL (130-400); RED BLOOD COUNT 3.39 M/uL (4.2-5.4); WHITE BLOOD COUNT 3.72 K/uL (4.8-10.8)
[2016-08-04 07:33] VITALS: BP 144/81; PULSE 76; TEMP 36.3; O2SAT 99
[2016-08-04 07:55] LABS: BUN/CREATININE RATIO 15.1 (10-20); CREATININE 1.2 mg/dl (0.60-1.20); POTASSIUM 3.9 mmol/L (3.5-5.1)
[2016-08-04] MEDS: METOPROLOL TARTRATE 25 MG TAB PO SCH (09:13)
[2016-08-04] MEDS: GABAPENTIN 400 MG CAP PO SCH ×2 (09:13→13:02)
[2016-08-04] MEDS: FERROUS SULFATE 325 MG TAB PO SCH (09:13)
[2016-08-04] MEDS: INSULIN ASPART 100 UNITS/ML 3 ML PEN SC SCH ×2 (09:17→13:01)
[2016-08-04 12:10] VITALS: BP 144/81; PULSE 76; TEMP 36.3; O2SAT 99
[2016-08-04] MEDS: CEFTRIAXONE SOD INJ 1 GM in DEXTROSE 5% ADD-VANTAGE 50ML 50 ML IV SCH (13:00)
--- NOTE | 2016-08-04 14:53 | Progress Note ---
Medicine Progress Note Date & Time of Visit: Aug 04, 2016 at 14:39. Subjective patient states she feels better overall denies dizziness, weakness no abdominal pain, nausea, vomiting, melena/hematochezia in good spirits states she feels better and would like to be discharged today Objective Last 8 Hrs Date Time Temp Pulse Resp B/P Pulse Ox O2 Delivery O2 Flow Rate FiO2 08/04/16 12:10 36.3 76 18 99 Room Air 08/04/16 07:33 36.3 76 18 144/81 99 Room Air Physical Exam: General- oriented x 3, not in distress, speaks in sentences with no effort Neck- no JVD Lungs- clear breath sounds bilaterally Heart-normal rate, regular rhythm; no murmur Abdomen- normal bowel sounds, soft, nontender Extremities- trace pretibial edema, no calf tenderness; peripheral pulses intact Neuro- alert, oriented x 3; no gross focal deficits Skin- (+) hyperpigmented raised lesion on the left neck Laboratory Results: Last 24 Hours Test 08/03/16 21:00 08/04/16 07:04 Stool Occult Blood NEGATIVE White Blood Count 3.72 K/uL Red Blood Count 3.39 M/uL Hemoglobin 9.3 g/dL Hematocrit 28.1 % Mean Corpuscular Volume 82.9 fL Mean Corpuscular Hemoglobin 27.4 pg Mean Corpuscular Hemoglobin Concent 33.1 g/dl Platelet Count 152 K/uL Mean Platelet Volume 9.8 fL Neutrophils (%) (Auto) 68.3 % Lymphocytes (%) (Auto) 16.7 % Monocytes (%) (Auto) 7.8 % Eosinophils (%) (Auto) 5.6 % Basophils (%) (Auto) 0.5 % Neutrophils # (Auto) 2.54 K/uL Lymphocytes # (Auto) 0.62 K/uL Monocytes # (Auto) 0.29 K/uL Eosinophils # (Auto) 0.21 K/uL Basophils # (Auto) 0.02 K/uL RDW Standard Deviation 47.3 fL RDW Coefficient of Variation 15.6 % Immature Granulocyte % (Auto) 1.1 % Immature Granulocyte # (Auto) 0.04 K/uL Sodium Level 144 mmol/L Potassium Level 3.9 mmol/L Chloride Level 109 mmol/L Carbon Dioxide Level 26 mmol/L Anion Gap 9.0 mmol/L Blood Urea Nitrogen 18 mg/dl Creatinine 1.20 mg/dl Est Creatinine Clear Calc Drug Dose 54.5 ml/min Estimated GFR () 54.9 Estimated GFR (Non- 47.4 BUN/Creatinine Ratio 15.1 Random Glucose 145 mg/dl Calcium Level 8.0 mg/dl Magnesium Level 2.0 mg/dl Date/Time Source Procedure Growth Status 08/03/16 21:00 Stool C.difficile Toxin B Gene (PCR) - Final No C. difficile toxin B gene detected Complete Assessment & Plan 65 year old female with history of DM, HTN, HLD presenting with fever and chills x 5 days. POSSIBLE SEPSIS SECONDARY TO UTI, E coli blood cultures: negative urine culture: E coli, pansensitive C diff: negative Flu PCR: negative IV fluids given empiric Zosyn Day 2--> changed to Ceftriaxone, received x 4 days gradually improved discharge on Cefuroxime 250mg BID x 4 days to complete 10 days antibiotic course ACUTE RENAL FAILURE ON CKD 3 likely pre renal from dehydration, also from sepsis Renal US: 1. Bilateral nephrolithiasis 2. Mild right-sided hydronephrosis 3. 19 mm upper pole right renal cyst 4. Splenomegaly 5. Cholelithiasis with borderline gallbladder wall thickening IV fluids given Losartan held - crea improved rfom 1.9 to 1.1 monitor hydronephrosis and renal cyst as noted above PANCYTOPENIA, LIKELY FROM SEPSIS PBS: "do not favor a neoplastic hematologic condition despite the presence of rare hypogranulated PMN leukocytes and a single Pelger-Huet PMN leukocyte. Clearly, if this patient's indices do not correct after her current illness has passed, one should consider further evaluation such as a haylee"ne marrow biopsy to evaluate her pancytopenia, if it persists. WBC remains 3-4k, Plt improved needs to be monitored as outpatient, (+) splenomegaly on US repeat CBC on ff up and monitor regularly ANEMIA, IRON DEFICIENCY iron 14, replace with Fe BID Hg down from 10 to 7.5- no overt signs of bleeding needs outpatient ff up, patient had colonoscopy in 2016 (+) diverticulosis, scheduled for EGD next week s/p 2 units PRBC monitor CBC and ff up with GI HYPERGLYCEMIA DM 2 ISS and Lantus while admitted resume Metformin HYPERTENSION stable continue Metoprolol and Lisinopril BOWDEN CIRRHOSIS LFTs stable continue GI ff up POSSIBLE SARCOIDOSIS corrected calcium 9.5 continue Pulmonary ff up NECK SKIN LESION Derm ff up as outpatient SPLENOMEGALY in the setting of pancytopenia scheduled for Hematology consult as outpatient CHOLELITHIASIS asymptomatic DVT prophylaxis SCDs FULL CODE Disposition d/c home today ff up with PCP in 3-5 days ff up with GI and Pulm as scheduled Current Inpatient Medications: Current Inpatient Medications Medications (Trade) Dose Ordered Sig/Lea Route Start Time Stop Time Status Last Admin Dose Admin Insulin Aspart (novoLOG ASPART) SLIDING SCALE If C... ACHS SC 07/30/16 21:00 08/29/16 20:59 08/04/16 13:01 9 UNITS Glucose (Glucose 40% Gel) 15-30 GRAMS 15 GRAMS... UD PRN PO 07/30/16 18:15 08/29/16 18:14 Glucose (Glucose Chew Tab) 4-8 Tablets 4 Tabl... UD PRN PO 07/30/16 18:15 08/29/16 18:14 Dextrose (Dextrose 50% 50ML Syringe) 25-50ML OF 50% DW IV FOR... UD PRN IV 07/30/16 18:15 08/29/16 18:14 Glucagon (Glucagon Inj) 1 mg UD PRN SQ 07/30/16 18:15 08/29/16 18:14 Miscellaneous Information (Consult Glycemic Management Pharmacy) 1 ea UD PRN N/A 07/30/16 18:27 08/29/16 18:26 Clonazepam (Klonopin Tab) 0.5 mg HS PRN PO 07/30/16 18:15 08/29/16 18:14 07/31/16 00:35 0.5 MG Multivitamins (Multivitamin Tab) 1 tab HS PO 07/30/16 21:00 08/29/16 20:59 08/03/16 21:13 1 TAB Ranitidine HCl (zANTac TAB) 150 mg HS PO 07/30/16 21:00 08/29/16 20:59 08/03/16 21:13 150 MG Clonidine HCl (Catapres Tab) 0.1 mg Q6H PRN PO 07/30/16 18:15 08/29/16 18:14 Gabapentin (Neurontin Cap) 400 mg TID PO 07/30/16 21:00 08/29/16 20:59 08/04/16 13:02 400 MG Ondansetron HCl (Zofran Inj) 4 mg Q6H PRN IV 07/30/16 21:30 08/29/16 21:29 07/30/16 22:34 4 MG Insulin Detemir (Levemir Flexpen/ FlexTouch) 30 unit HS SC 07/31/16 21:00 08/30/16 20:59 08/03/16 21:15 30 UNIT Metoprolol Tartrate 12.5 mg 12.5 mg BID PO 07/31/16 20:00 08/30/16 20:59 08/04/16 09:13 12.5 MG Ceftriaxone Sodium/Dextrose (Rocephin Inj/ Dextrose Add-[place] 50ML) 50 ml @ 100 mls/hr Q24H IV 08/01/16 13:00 08/06/16 12:59 08/03/16 15:01 100 MLS/HR Ferrous Sulfate (Feosol Tab) 325 mg BIDM PO 08/02/16 08:00 09/01/16 07:59 08/04/16 09:13 325 MG
[2016-08-04] MEDS ORDERED: LPR25 PO (14:57)
[2016-08-04] MEDS ORDERED: CFT250 PO (14:57)
[2016-08-04] MEDS ORDERED: FRRS300 PO (14:57)
--- NOTE | 2016-08-04 15:08 | Discharge Instructions ---
Discharge Instructions Admission Reason for Admission: Sepsis Discharge Discharge Diagnosis / Problem: Urinary Tract Infection Discharge Goals Goal(s): Diagnostic testing, Therapeutic intervention Activity Recommendations Activity Limitations: as noted below (No heavy exertion until re-evaluated by Dr. Dave) . Instructions / Follow-Up Instructions / Follow-Up NO ASPIRIN, NSAIDS- CELEBREX, IBUPROFEN, NAPROXEN, ETC. CALL PRIMARY CARE PHYSICIAN OR RETURN TO ER IMMEDIATELY IF WITH RECURRENCE OF SYMPTOMS, FEVER/CHILLS, NAUSEA/VOMITING, WEAKNESS, ABDOMINAL PAIN, BLOOD IN THE STOOLS. ENSURE ADEQUATE DAILY FLUID INTAKE. FOLLOW UP WITH DR. DAVE ON 08/08/16 AT 2:00PM. FOLLOW UP WITH GASTROENTEROLOGY, PULMONARY AND HEMATOLOGY/ONCOLOGY ADVISED. Current Hospital Diet Patient's current hospital diet: Diabetes Type 2 Diet, AHA Diet (Heart Healthy) Discharge Diet Recommended Diet: AHA Diet (Heart Healthy), Diabetes Type 2 Diet Pending Studies Studies pending at discharge: yes List of pending studies: Repeat CBC and PRP on follow up with Dr. Dave. Laboratory Results Hemoglobin A1c Test 07/31/16 06:05 Range/Units Estimated Average Glucose 148 mg/dl Hemoglobin A1c 6.8 H 4.5-5.6 % Medical Emergencies . Who to Call and When: Medical Emergencies: If at any time you feel your situation is an emergency, please call 911 immediately. . Non-Emergent Contact Non-Emergency issues call your: Primary Care Provider Call Non-Emergent contact if: you have a fever, your pain is not controlled . Past History Medical & Surgical History: (1) Diabetes (2) Hypertension (3) Urinary tract infection (4) Hyperglycemia (5) ARF (acute renal failure) (6) Sepsis . "Provider Documentation" section prepared by Myles Trujillo. VTE Core Measure Inpt VTE Proph given/why not?: Contraindicated (anemia, possible underlying GI bleed)
--- NOTE | 2016-08-04 15:11 | Discharge Summary ---
Discharge Summary Admission Date: Jul 30, 2016 at 17:37 Discharge Date: Aug 04, 2016 Discharge Disposition: Home Principal Diagnosis: POSSIBLE SEPSIS SECONDARY TO UTI, E coli Secondary Diagnoses/Problems: Please refer to hospital course below. Pending Studies/Follow-Up: Repeat CBC and PRP on follow up; Please refer to hospital course below for further details. Medication Reconciliation New Medications: Cefuroxime Axetil (Cefuroxime Axetil) 250 Mg Tab 1 TAB PO BID for 4 Days, #8 TABS 0 Refills Ferrous Sulfate (Ferrous Sulfate) 325 Mg Tab 325 MG PO BIDM for 30 Days, #60 TAB 2 Refills Metoprolol Tartrate (Lopressor) 25 Mg Tab 12.5 MG PO BID for 30 Days, #15 TAB 2 Refills Continued Medications: Ascorbic Acid (Vitamin C) 1,000 Mg Tab 1 TAB PO QAM Atorvastatin (Lipitor) 20 Mg Tab 20 MG PO HS, TAB Clonazepam (Klonopin) 0.5 Mg Tab 0.5 MG PO HS PRN for Anxiety, TAB Gabapentin (Neurontin) 800 Mg Tab 800 MG PO QID, TAB Insulin Detmir (Levemir) Inj 25 UNITS SC HS, VIAL Lisinopril (Zestril) 5 Mg Tab 5 MG PO HS, TAB Metformin Hcl (Glucophage) 1,000 Mg Tab 1000 MG PO BID Multivitamin (Multivitamin) Tab 1 TAB PO HS, TAB Ocuvite Preservision (Ocuvite Preservision) 1 Tab Tab 1 TAB PO BID, TAB Ranitidine (Zantac) 150 Mg Tab 150 MG PO HS, TAB Vitamin E (Alph-E) 400 Unit Cap 1 CAP PO QAM Discontinued Medications: Aspirin (Aspirin Chewable) 81 Mg Chew 81 MG PO HS, 0 Refills Admission Information HPI (per Admitting provider): 65 year old female with history of DM, HTN, HLD presenting with fever and chills x 5 days. Patient states last Thursday, she started to have chills associated with poor appetite. She then started to have polyuria but no dysuria or abdominal pain. Anorexia continued. Yesterday, she started to have nausea, vomiting, diarrhea- non bloody. Today, patient consulted with PCP and was advised ER evaluation. At the ED, patient received with tachycardia, leukocytosis, crea of 1.9, and UA indicative of UTI. She was given IV fluids and Ceftriaxone. On my exam, patient seen resting in bed, comfortable overall. Denies chest pain, dyspnea, dizziness, palpitations, abdominal pain. Physical Exam (per Admitting): General Appearance: WD/WN, no apparent distress Head: normocephalic, atraumatic Eyes: normal inspection, PERRL, EOMI, sclerae normal ENT: normal ENT inspection, hearing grossly normal, pharynx normal Neck: supple, no adenopathy, thyroid normal, no JVD, trachea midline Respiratory/Chest: chest non-tender, lungs clear, normal breath sounds, no respiratory distress, no accessory muscle use Cardiovascular: no edema, no JVD, no murmur, normal peripheral pulses, + tachycardia Abdomen/GI: normal bowel sounds, non tender, soft, no organomegaly Back: normal inspection, no CVA tenderness Extremities/Musculoskelatal: normal inspection, no calf tenderness, normal capillary refill, no pedal edema, normal range of motion, pelvis stable Neurologic/Psych: ham trimmer II-XII nml as tested, no motor/sensory deficits, alert , normal mood/affect, normal reflexes, oriented x 3 Skin: normal color, warm/dry, no rash Lymphatic: no adenopathy Hospital Course 65 year old female with history of DM, HTN, HLD presenting with fever and chills x 5 days. POSSIBLE SEPSIS SECONDARY TO UTI, E coli blood cultures: negative urine culture: E coli, pansensitive C diff: negative Flu PCR: negative IV fluids given empiric Zosyn Day 2--> changed to Ceftriaxone, received x 4 days gradually improved discharge on Cefuroxime 250mg BID x 4 days to complete 10 days antibiotic course ACUTE RENAL FAILURE ON CKD 3 likely pre renal from dehydration, also from sepsis Renal US: 1. Bilateral nephrolithiasis 2. Mild right-sided hydronephrosis 3. 19 mm upper pole right renal cyst 4. Splenomegaly 5. Cholelithiasis with borderline gallbladder wall thickening IV fluids given Losartan held - crea improved rfom 1.9 to 1.1 monitor hydronephrosis and renal cyst as noted above PANCYTOPENIA, LIKELY FROM SEPSIS PBS: "do not favor a neoplastic hematologic condition despite the presence of rare hypogranulated PMN leukocytes and a single Pelger-Huet PMN leukocyte. Clearly, if this patient's indices do not correct after her current illness has passed, one should consider further evaluation such as a haylee"ne marrow biopsy to evaluate her pancytopenia, if it persists. WBC remains 3-4k, Plt improved needs to be monitored as outpatient, (+) splenomegaly on US repeat CBC on ff up and monitor regularly ANEMIA, IRON DEFICIENCY iron 14, replace with Fe BID Hg down from 10 to 7.5- no overt signs of bleeding needs outpatient ff up, patient had colonoscopy in 2016 (+) diverticulosis, scheduled for EGD next week s/p 2 units PRBC monitor CBC and ff up with GI HYPERGLYCEMIA DM 2 ISS and Lantus while admitted resume Metformin HYPERTENSION stable continue Metoprolol and Lisinopril BOWDEN CIRRHOSIS LFTs stable continue GI ff up POSSIBLE SARCOIDOSIS corrected calcium 9.5 continue Pulmonary ff up NECK SKIN LESION Derm ff up as outpatient SPLENOMEGALY in the setting of pancytopenia scheduled for Hematology consult as outpatient CHOLELITHIASIS asymptomatic DVT prophylaxis SCDs FULL CODE Disposition d/c home today ff up with PCP in 3-5 days ff up with GI and Pulm as scheduled Total time spent on discharge = 40 minutes This includes examination of the patient, discharge planning, medication reconciliation, and communication with other providers. Discharge Instructions Discharge Instructions Admission Reason for Admission: Sepsis Discharge Discharge Diagnosis / Problem: Urinary Tract Infection Discharge Goals Goal(s): Diagnostic testing, Therapeutic intervention Activity Recommendations Activity Limitations: as noted below (No heavy exertion until re-evaluated by Dr. Dave) . Instructions / Follow-Up Instructions / Follow-Up NO ASPIRIN, NSAIDS- CELEBREX, IBUPROFEN, NAPROXEN, ETC. CALL PRIMARY CARE PHYSICIAN OR RETURN TO ER IMMEDIATELY IF WITH RECURRENCE OF SYMPTOMS, FEVER/CHILLS, NAUSEA/VOMITING, WEAKNESS, ABDOMINAL PAIN, BLOOD IN THE STOOLS. ENSURE ADEQUATE DAILY FLUID INTAKE. FOLLOW UP WITH DR. DAVE ON 08/08/16 AT 2:00PM. FOLLOW UP WITH GASTROENTEROLOGY, PULMONARY AND HEMATOLOGY/ONCOLOGY ADVISED. Current Hospital Diet Patient's current hospital diet: Diabetes Type 2 Diet, AHA Diet (Heart Healthy) Discharge Diet Recommended Diet: AHA Diet (Heart Healthy), Diabetes Type 2 Diet Pending Studies Studies pending at discharge: yes List of pending studies: Repeat CBC and PRP on follow up with Dr. Dave.
[2016-11-12] MEDS ORDERED: FLUO5CRE TOP (16:07)
[2016-11-25] MEDS ORDERED: CIPR-255 PO (13:50)
[2016-11-25] MEDS ORDERED: TRAM-10 PO (13:50)
[2016-12-11] MEDS ORDERED: TRAM-10 PO (09:43)
[2016-12-11] MEDS ORDERED: CIPR-255 PO (09:43)
== END 2016-08-04 15:20 | disposition home or self-care (01) | DRG 872 ==
LOC: ENRESERVDT → ENRESERVTM → C.EDB 15:17 → C.2E 17:37 → C.MS4W 07-31 12:19
PROVIDERS: ADMIT Internal Medicine; ATTEND Internal Medicine
DX: A41.51 Sepsis due to Escherichia coli [E. coli] (principal); N39.0 Urinary tract infection, site not specified; N17.9 Acute kidney failure, unspecified; D61.818 Other pancytopenia; N13.30 Unspecified hydronephrosis; N18.3 Chronic kidney disease, stage 3 (moderate); D50.9 Iron deficiency anemia, unspecified; E11.65 Type 2 diabetes mellitus with hyperglycemia; I12.9 Hypertensive chronic kidney disease with stage 1 through stage 4 chronic kidney disease, or unspecified chronic kidney disease; K75.81 Nonalcoholic steatohepatitis (NASH); D86.9 Sarcoidosis, unspecified; L98.9 Disorder of the skin and subcutaneous tissue, unspecified; R16.1 Splenomegaly, not elsewhere classified; B96.20 Unspecified Escherichia coli [E. coli] as the cause of diseases classified elsewhere; N20.0 Calculus of kidney; N28.1 Cyst of kidney, acquired; E78.5 Hyperlipidemia, unspecified; Z79.4 Long term (current) use of insulin; Z79.82 Long term (current) use of aspirin; Z79.84 Long term (current) use of oral hypoglycemic drugs; Z79.899 Other long term (current) drug therapy; Z88.1 Allergy status to other antibiotic agents; Z88.5 Allergy status to narcotic agent; Z88.6 Allergy status to analgesic agent; Z87.891 Personal history of nicotine dependence; Z83.3 Family history of diabetes mellitus

== ENCOUNTER → 2016-08-07 | Day surgery (SDC) | payer OTHER ==
[2016-07-16 10:51] VITALS: BMI 36.0
[2016-08-06 09:50] VITALS: Ht 165.1 cm; Wt 100.0 kg
[~2016-08-07] VITALS: Ht 165.1 cm; Wt 100.0 kg
[~2016-08-07] MED LIST changes: +ASCO500T16 PO; -ASPCH81X PO; +CFT250 PO; +CIPR-255 PO; +CLON0.5T3 PO; +FLUO5CRE TOP; +FRRS300 PO; +KFL500 PO; +KLN1X PO; +LIDOCAINE HCL 2% 2 ML VIAL (20MG/ML) ONE; +LPR25 PO; +LVMI SC; +METO25TA56 PO; +MTR500 PO; +OMEG10007 PO; +PROPOFOL IV EMULSION 10 MG/ML 20 ML VIAL IV ONE; +SODIUM CHLORIDE 0.9% 500ML 500 ML IV ONE; +TRAM-10 PO
--- NOTE | 2016-08-07 08:50 | Endo History and Physical ---
History & Physical Date of Service: Aug 07, 2016. Chief Complaint: cirrhosis of liver Referring Physician: Dr. Jean-Pierre Dave History of Present Illness EGD for variceal surveillance. Past Surgical History Hx Cardiac Surgery: No Hx Internal Defibrillator: No Hx Pacemaker: No Hx Abdominal Surgery: Yes (C-SECTIONS X 3, TUBAL LIGATION, LIVER BIOPSY) Hx of Implantable Prosthesis: No Hx Post-Op Nausea and Vomiting: No Hx Cancer Surgery: No Hx Thoracic Surgery: No Hx Orthopedic: Yes (LUMBAR DISCECTOMY X 2, RT/LEFT TKA, RT CTR) Hx Urinary Tract Surgery: No Family History Polyp Social History Smoking Status: Former Smoker Hx Substance Use: No Hx Alcohol Use: No Allergies Coded Allergies: Acetaminophen (Unverified Allergy, Unknown, UNKNOWN, 08/07/16) Oxycodone (Unverified Allergy, Unknown, UNKNOWN, 08/07/16) Tetracyclines (Unverified Adverse Reaction, Severe, CAUSES DECREASED RESPIRATIONS, YEAST INFECTIONS, 07/30/16) Current Medications Reported Home Medications Medications Dose Route/Sig Max Daily Dose Days Date Category Lopressor (Metoprolol Tartrate) 25 Mg Tab 12.5 Mg PO BID 30 08/04/16 Rx Ferrous Sulfate 325 Mg Tab 325 Mg PO BIDM 30 08/04/16 Rx Cefuroxime Axetil 250 Mg Tab 1 Tab PO BID 4 08/04/16 Rx Klonopin (Clonazepam) 0.5 Mg Tab 0.5 Mg PO HS PRN 07/30/16 Reported Levemir (Insulin Detemir) Inj 25 Units SC HS 12/28/15 Reported Ocuvite Preservision (Multivitamins/Minerals) 1 Tab Tab 1 Tab PO BID 12/28/15 Reported Alph-E (Vitamin E) 400 Unit Cap 1 Cap PO QAM 12/28/15 Reported Vitamin C (Ascorbic Acid) 1,000 Mg Tab 1 Tab PO QAM 12/28/15 Reported Multivitamin (Multivitamins) Tab 1 Tab PO HS 12/28/15 Reported Lipitor (Atorvastatin Calcium) 20 Mg Tab 20 Mg PO HS 12/28/15 Reported Zestril (Lisinopril) 5 Mg Tab 5 Mg PO HS 12/28/15 Reported Neurontin (Gabapentin) 800 Mg Tab 800 Mg PO QID 12/28/15 Reported Glucophage (Metformin Hcl) 1,000 Mg Tab 1,000 Mg PO BID 10/01/11 Reported Vital Signs Weight (Kilograms): 100.00 Height (Feet): 5 Height (Inches): 5 Date Time Temp Pulse Resp B/P Pulse Ox O2 Delivery O2 Flow Rate FiO2 08/07/16 08:36 36.4 80 18 184/81 96 Room Air Physical Exam General Appearance: WD/WN, no apparent distress Respiratory/Chest: Auscultation: breath sounds normal, no wheezing Cardiovascular: Heart Auscultation: RRR, no murmurs Abdomen: Inspection & Palpation: soft, no tenderness, guarding & rebound Assessment and Plan Cleared for EGD
--- NOTE | 2016-08-07 09:18 | Discharge Instructions ---
Endoscopy Patient Instructions Date / Procedure(s) Performed Aug 07, 2016. EGD Allergy Information Coded Allergies: Acetaminophen (Unverified Allergy, Unknown, UNKNOWN, 08/07/16) Oxycodone (Unverified Allergy, Unknown, UNKNOWN, 08/07/16) Tetracyclines (Unverified Adverse Reaction, Severe, CAUSES DECREASED RESPIRATIONS, YEAST INFECTIONS, 07/30/16) Discharge Date / Findings Aug 07, 2016. No varices, retained food in stomach. Medication Instructions Stopped Medication(s): stopped Metformin 48 hours ago Restart Stopped Medication(s): Restart all medications. Provider Instructions Activity Restrictions - No exercising or heavy lifting for 24 hours. - Do not drink alcohol the day of the procedure. - Do not drive a car or operate machinery until the day after the procedure. - Do not make any important decisions or sign important papers in 24 hours after the procedure. Following Day: - Return to full activity which may include returning to work/school. Diet Start your diet with liquids and light foods (jello, soup, juice, toast). Then eat your usual diet if not nauseated. Treatment For Common After Affects For mild abdominal pain, bloating, or excessive gas: - Rest - Eat lightly - Lie on right side Follow-Up Information Follow-up with Dr. Jean-Pierre Dave as scheduled Radionucleide gastric emptying study ordered. Anesthesia Information What You Should Know You have had a procedure that required some medicine to reduce anxiety and discomfort. This treatment is called moderate sedation. After receiving the treatment, you may be sleepy, but you will be able to breathe on your own. The effects of the treatment may last for several hours. Follow these instructions along with Activity/Diet recommendations noted above: * Do NOT do anything where dizziness or clumsiness would be dangerous. * Rest quietly at home today, then you can be up and about tomorrow. * Have a responsible person stay with you the rest of today. * You may have had an I.V. today. If so, you may take the dressing off later today. Recommendations Call your doctor if: * Trouble breathing * Continuous vomiting for more than 24 hours * Temperature above 101 degrees * Severe abdominal pain or bloating * Pain not relieved by pain medicine ordered * There is increased drainage or redness from any incision * A large amount of rectal bleeding greater than 2-3 tablespoons. (If you had a polyp/s removed or have hemorrhoids, a small amount of blood - from the rectum is to be expected.) * You have any unanswered questions or concerns. IN THE EVENT OF A SERIOUS EMERGENCY, GO TO THE NEAREST EMERGENCY ROOM Your discharge instructions were prepared by provider Ankit Friedman. Patient Instructions Signature Page Evangelina Tijerina Patient (or Guardian) Signature/Date: I have read and understand the instructions given to me by my caregivers. Caregiver/RN/Doctor Signature/Date: The above-named patient and/or guardian has received patient instructions on this date. + Original Patient Signature Page (only) stays with chart. Please make copy for patient.
--- NOTE | 2016-08-07 09:32 | GI REPORT ---
Procedure Date: 08/07/2016 8:53 AM Procedure: Upper GI endoscopy Indications: Cirrhosis rule out esophageal varices Medicines: Monitored Anesthesia Care Complications: No immediate complications. Estimated blood loss: None. Estimated Blood Loss: Estimated blood loss: none. Procedure: Pre-Anesthesia Assessment: - Prior to the procedure, a History and Physical was performed, and patient medications, allergies and sensitivities were reviewed. The patient's tolerance of previous anesthesia was reviewed. - ASA Grade Assessment: III - A patient with severe systemic disease. After obtaining informed consent, the endoscope was passed under direct vision. Throughout the procedure, the patient's blood pressure, pulse, and oxygen saturations were monitored continuously. The Scope was introduced through the mouth, and advanced to the third part of duodenum. The upper GI endoscopy was accomplished with ease. The patient tolerated the procedure well. Findings: The upper third of the esophagus, middle third of the esophagus and lower third of the esophagus were normal. The Z-line was regular and was found 36 cm from the incisors. A small hiatus hernia was present. A medium amount of food (residue) was found in the gastric body. The examined duodenum was normal. Impression: - Normal upper third of esophagus, middle third of esophagus and lower third of esophagus. - Z-line regular, 36 cm from the incisors. - There were no varices. - Small hiatus hernia. - A medium amount of food (residue) in the stomach. - Normal examined duodenum. - No specimens collected. Recommendation: - Do a gastric emptying study at appointment to be scheduled. - Discharge patient to home (with escort). Ankit Friedman M.D. Ankit Friedman MD 08/07/2016 9:31:17 AM This report has been signed electronically. Note Initiated On: 08/07/2016 8:53 AM
[2016-08-07 09:38] VITALS: BP 169/59; PULSE 74; O2SAT 98
--- NOTE | 2016-08-07 09:40 | Anesthesiology Progress Note ---
Anesthesia Post Op Note Date & Time Aug 07, 2016 at 09:39 Vital Signs Pain Intensity: 0 Vital Signs Past 12 Hours Date Time Temp Pulse Resp B/P Pulse Ox O2 Delivery O2 Flow Rate FiO2 08/07/16 09:23 77 18 126/66 97 Room Air 08/07/16 09:08 74 18 119/53 97 Room Air 08/07/16 08:36 36.4 80 18 184/81 96 Room Air Notes Mental Status: alert / awake / arousable, participated in evaluation Pt Amnestic to Procedure: Yes Nausea / Vomiting: adequately controlled Pain: adequately controlled Airway Patency, RR, SpO2: stable & adequate BP & HR: stable & adequate Hydration State: stable & adequate Anesthetic Complications: no major complications apparent
== END | disposition home or self-care (01) ==
LOC: C.GI 08:11
PROVIDERS: ATTEND Internal Medicine Gastroenterology
DX: K74.69 Other cirrhosis of liver (principal); K44.9 Diaphragmatic hernia without obstruction or gangrene; Z98.51 Tubal ligation status; Z98.890 Other specified postprocedural states; Z96.652 Presence of left artificial knee joint; Z87.891 Personal history of nicotine dependence; Z88.1 Allergy status to other antibiotic agents; Z88.5 Allergy status to narcotic agent; Z88.8 Allergy status to other drugs, medicaments and biological substances; Z79.899 Other long term (current) drug therapy

== ENCOUNTER → 2016-09-10 | Outpatient (CLI) | payer OTHER ==
[~2016-09-10] MED LIST changes: -LIDOCAINE HCL 2% 2 ML VIAL (20MG/ML) ONE; -PROPOFOL IV EMULSION 10 MG/ML 20 ML VIAL IV ONE; -SODIUM CHLORIDE 0.9% 500ML 500 ML IV ONE
[2016-09-10 12:07] LABS: BLOOD UREA NITROGEN 11 mg/dl (7-18); CALCIUM 8.8 mg/dl (8.5-10.1); CARBON DIOXIDE 28 mmol/L (21-32); CHLORIDE 102 mmol/L (98-107); GLUCOSE 290 mg/dl (70-99); POTASSIUM 4.1 mmol/L (3.5-5.1); SODIUM 139 mmol/L (136-145)
== END | disposition home or self-care (01) ==
LOC: C.LAB 11:12
PROVIDERS: ATTEND Internal Medicine Critical Care Medicine
DX: E11.9 Type 2 diabetes mellitus without complications (principal); E78.5 Hyperlipidemia, unspecified; E83.52 Hypercalcemia; I10 Essential (primary) hypertension; R93.8 Abnormal findings on diagnostic imaging of other specified body structures

== ENCOUNTER → 2016-09-11 | Outpatient (CLI) | payer OTHER ==
[~2016-09-11] MED LIST changes: +OPTIRAY 320 IV PRN
--- NOTE | 2016-09-11 13:04 | DIAGNOSTIC IMAGING REPORT ---
CT SCAN OF THE CHEST WITH IV CONTRAST CLINICAL HISTORY: Pulmonary nodules. COMPARISON STUDY: Chest CT dated 05/13/2016. PET/CT dated 06/18/2016. TECHNIQUE: Following the IV administration of 119 cc of Optiray 320, CT scan of the thorax was performed from the thoracic inlet to the upper abdomen. Images are reviewed in the axial, sagittal, and coronal planes. IV contrast was administered without complication. The examination is degraded by streak artifact from the left arm which could not be elevated above the chest. CT DOSE: 665.06 mGy.cm FINDINGS: Thyroid: Imaged portions of the thyroid gland are normal in size and attenuation. Numerous subcentimeter nodules and coarse calcifications are present within both lobes. Thoracic aorta: The thoracic aorta is normal in caliber and demonstrates standard 3-vessel arch anatomy. No dissection is seen. Pulmonary vasculature: The pulmonary trunk is normal in caliber. There are no filling defects identified in the central pulmonary vessels to indicate pulmonary embolus. Note that this examination was not protocoled for evaluation of the pulmonary arteries. Heart: The heart is normal in size and configuration, and without pericardial effusion. There are scattered coronary artery calcifications. Lungs and pleural spaces: Mild emphysema is observed. There is no airspace consolidation or pleural effusion. The trachea and central airways are clear. There is been a significant decrease in the size and number of numerous small pulmonary nodules as compared to the 05/13/2016 examination. The largest remaining nodules are present in the right middle lobe on image 157 measuring 5 mm, the right upper lobe on image #69 measuring 4 mm, and the left lower lobe on image #148 measuring 4 mm. Mediastinum: There are subcentimeter mediastinal lymph nodes. These are not pathologically enlarged by size criteria. Kim: Clear. Axillae: There is no axillary lymphadenopathy. Upper abdomen: The liver and spleen are enlarged. The spleen measures 16 cm in length. There are numerous hypodensities within both the liver and spleen which measure up to 2 cm. A 2.0 cm lipoma is noted in the left lobe of liver. Numerous calcified gallstones are identified. Skeletal structures: The skeletal structures are osteopenic. Degenerative change is noted in the thoracic spine and shoulders. No lytic or blastic bony lesions are seen. IMPRESSION: 1. There is no airspace consolidation typical for pneumonia. Pleural effusions have resolved from previous. 2. There has been a significant decrease in both the size and number of numerous pathologically indeterminant pulmonary nodules as compared to the 05/13/2016 examination as detailed above. 3. Hepatosplenomegaly is again noted. Numerous low-attenuation hepatic and splenic lesions persist. Top differential considerations include metastatic disease, sarcoidosis, lymphoma, or infection. Clinical correlation will be essential. 4. Cholelithiasis. Electronically signed by: Kory Valero M.D. 09/11/2016 1:03 PM Dictated Date/Time: 09/11/2016 12:48 PM
--- NOTE | 2016-09-15 07:19 | PULMONARY FUNCTION TEST ---
Spirometry per ATS standards suggest mild obstructive ventilatory disease with no reversibility via bronchodilators. Lung volumes: Within normal limits. Diffusion capacity: DLCO mildly decreased at 68% with normalization based off lung volumes at 124%.
== END | disposition home or self-care (01) ==
LOC: C.CTS 12:11
PROVIDERS: ATTEND Internal Medicine Critical Care Medicine
DX: R05 Cough (principal); R91.1 Solitary pulmonary nodule; R93.8 Abnormal findings on diagnostic imaging of other specified body structures; R16.2 Hepatomegaly with splenomegaly, not elsewhere classified; K80.20 Calculus of gallbladder without cholecystitis without obstruction

== ENCOUNTER 2016-10-08 17:20 | Inpatient (IN) | payer OTHER ==
[~2016-10-08] VITALS: Ht 165.1 cm; Wt 97.7 kg
[~2016-10-08 17:20] MED LIST changes: -ASCO500T16 PO; -CIPR-255 PO; -FLUO5CRE TOP; -KFL500 PO; -KLN1X PO; -LVMI SC; -METO25TA56 PO; -MTR500 PO; -OMEG10007 PO; -OPTIRAY 320 IV PRN; -TRAM-10 PO
[2016-10-08] MEDS ORDERED: SODIUM CHLORIDE 0.9% 1000ML 1,000 ML IV STA (17:49)
[2016-10-08] MEDS ORDERED: OMEG10007 PO (18:00)
[2016-10-08] MEDS ORDERED: ASCO500T16 PO (18:00)
[2016-10-08] MEDS ORDERED: METO25TA56 PO (18:00)
[2016-10-08] MEDS ORDERED: KLN1X PO (18:00)
[2016-10-08] MEDS ORDERED: LVMI SC (18:00)
[2016-10-08 18:31] LABS: HEMATOCRIT 31.1 % (37-47); MEAN CELL VOLUME 85.2 fL (80-100); MEAN CORPUSCULAR HEMOGLOBIN 28.2 pg (25-34); MEAN CORPUSCULAR HGB CONC 33.1 g/dl (32-36); MEAN PLATELET VOLUME 9.9 fL (7.4-10.4); PLATELET COUNT 115 K/uL (130-400); RED BLOOD COUNT 3.65 M/uL (4.2-5.4); WHITE BLOOD COUNT 8.97 K/uL (4.8-10.8)
[2016-10-08] MEDS ORDERED: DAPTOmycin IV 500 MG in SODIUM CHLORIDE 0.9% 50ML 50 ML IV STA (18:38)
[2016-10-08] MEDS ORDERED: SODIUM CHLORIDE 0.9% 1000ML 2,000 ML IV STA (18:38)
[2016-10-08] MEDS ORDERED: PIPERACILLIN/TAZOBACTAM 4.5 GM/100ML D5W IV STA (18:38)
[2016-10-08 18:42] LABS: INR 1.1 (0.9-1.1); PARTIAL THROMBOPLASTIN RATIO 0.9; PROTHROMBIN TIME (PATIENT) 11.9 SECONDS (9.0-12.0)
--- NOTE | 2016-10-08 18:42 | DIAGNOSTIC IMAGING REPORT ---
CHEST ONE VIEW PORTABLE CLINICAL HISTORY: Weakness. Confusion. COMPARISON STUDY: Chest CT September 11, 2016. FINDINGS: Lung volumes are diminished. There is no pneumothorax or pleural effusion. There is no evidence of pulmonary edema. Cardiac size is normal. Mediastinal contours are normal. Mild left basilar opacity favors atelectasis. IMPRESSION: 1. Mild left basilar opacity which favors atelectasis. 2. Diminished lung volumes. Electronically signed by: Chester Martel M.D. 10/08/2016 6:41 PM Dictated Date/Time: 10/08/2016 6:38 PM
[2016-10-08 18:49] LABS: COMPLETE YES; EOS % 0.3 %; IG% 0.2 %; LYMPH % 3.5 %; LYMPH ABS # 0.31 K/uL (1.2-3.4); MONO % 5.4 %; NEUT % 90.6 %
[2016-10-08 18:50] LABS: ALT/SGPT 18 U/L (12-78); AST/SGOT 14 U/L (15-37); BLOOD UREA NITROGEN 26 mg/dl (7-18); BUN/CREATININE RATIO 16.3 (10-20); CARBON DIOXIDE 27 mmol/L (21-32); CHLORIDE 104 mmol/L (98-107); GLUCOSE 238 mg/dl (70-99); MAGNESIUM 1.6 mg/dl (1.8-2.4); POTASSIUM 4.4 mmol/L (3.5-5.1); SODIUM 139 mmol/L (136-145)
[2016-10-08 18:59] LABS: ALKALINE PHOSPHATASE 96 U/L (45-117)
--- NOTE | 2016-10-08 19:15 | DIAGNOSTIC IMAGING REPORT ---
CT OF THE HEAD WITHOUT CONTRAST CLINICAL HISTORY: Weakness. COMPARISON STUDY: Head CT May 09, 2016. TECHNIQUE: Helical axial images of the head were obtained without IV contrast. Automated exposure control was utilized for the study. FINDINGS: No acute intracranial hemorrhage, midline shift or mass effect is present. Ventricular system is normal. Basilar cisterns are patent. There are no extra axial collections. Bermeo-white differentiation is maintained. There are no findings to suggest acute dural sinus thrombosis or acute territorial infarct. There are no significant calvarial abnormalities. Visualized portions of the sinuses and mastoid air cells are clear. IMPRESSION: No acute intracranial findings. Electronically signed by: Chester Martel M.D. 10/08/2016 7:14 PM Dictated Date/Time: 10/08/2016 7:12 PM
[2016-10-08] MEDS ORDERED: ACETAMINOPHEN 500 MG TAB PO STA (19:25)
--- NOTE | 2016-10-08 19:26 | DIAGNOSTIC IMAGING REPORT ---
CT OF THE ABDOMEN AND PELVIS WITHOUT CONTRAST, STONE PROTOCOL CLINICAL HISTORY: Right flank pain. COMPARISON STUDY: PET/CT June 18, [address] of the abdomen and pelvis May 13, 2016 and renal ultrasound August 01, 2016. TECHNIQUE: Helical axial images of the abdomen and pelvis were obtained without IV or oral contrast according to renal stone protocol. FINDINGS: Moderate right hydronephrosis has increased since prior exam. No ureteral calculi are present. There is moderate right perinephric and periureteral infiltration. A 7 mm right renal calculus is noted. There are left renal calculi, including a staghorn calculus within the left collecting system. There is gas within the left collecting system as well as gas within the bladder. There is no left-sided collecting system dilatation. Hepatosplenomegaly is again noted with innumerable hypodense lesions within the liver and spleen which are likely similar to CT of September 11, 2016 when allowing for differences in technique. Gallstones within the gallbladder noted. There is no evidence for a bowel obstruction. No suspicious osseous lesions are present. There are scattered colonic diverticula without evidence for acute diverticulitis. There is a suspected recanalized para umbilical vein. Nodularity liver surface may indicate cirrhosis. Small retroperitoneal lymph nodes are again noted. IMPRESSION: 1. Moderate right hydronephrosis. No ureteral calculi. Differential considerations include a recently passed calculus or infectious process. An occult urothelial lesion could appear similar although is considered less likely. 2. Gas within the left renal collecting system and bladder. This could be due to recent instrumentation. In the absence of recent instrumentation, the findings suggest a gas-forming infectious process. Correlation with urinalysis and history of recent instrumentation is recommended. 3. Bilateral nephrolithiasis, including a left staghorn calculus. 4. Cholelithiasis. 5. Hepatosplenomegaly with innumerable hypodense lesions within the liver and spleen, as shown on prior CT. Overall, the imaging findings raise the possibility of sarcoidosis although metastatic disease remains within the differential. 6. Possible cirrhosis with a recannulized paraumbilical vein which could indicate portal hypertension. Electronically signed by: Chester Martel M.D. 10/08/2016 7:25 PM Dictated Date/Time: 10/08/2016 7:15 PM
[2016-10-08] MEDS ORDERED: GLUCAGON FOR INJ 1 MG VIAL SQ PRN (20:30)
[2016-10-08] MEDS ORDERED: GLUCOSE 40% GEL 15 GM TUBE PO PRN (20:30)
[2016-10-08] MEDS ORDERED: SODIUM CHLORIDE 0.9% 1000ML 1,000 ML IV ONE (20:30)
[2016-10-08] MEDS ORDERED: DEXTROSE 50% 50 ML SYR IV PRN (20:30)
[2016-10-08] MEDS ORDERED: GLUCOSE 10 TABS/TUBE PO PRN (20:30)
[2016-10-08] MEDS ORDERED: HYDROmorphone INJ 0.5 MG/0.5 ML SYR IV PRN (20:30)
[2016-10-08] MEDS ORDERED: ONDANSETRON INJ 2 MG/ML 2 ML VIAL IV PRN (20:30)
[2016-10-08] MEDS ORDERED: ACETAMINOPHEN 325 MG TAB PO PRN (20:30)
--- NOTE | 2016-10-08 21:49 | HISTORY & PHYSICAL EXAMINATION ---
DATE OF ADMISSION: 10/08/2016 PATIENT'S PRIMARY CARE DOCTOR: Dr. Dave. CHIEF COMPLAINT: Confusion, as per records. History obtained from the patient, patient's family and records. HISTORY OF PRESENT ILLNESS: Medical history significant for hypertension, DM2, insulin requiring, chronic anemia (baseline hemoglobin 10-11), cirrhosis secondary NAFLD, past tobacco abuse as per records. Recent confinement July 2016 for sepsis secondary to UTI. Last night, the patient noted achy right flank discomfort relieved by ibuprofen. This morning, the patient noted to be confused, unable to control her bladder. Subsequent diarrhea symptoms noted. No chest pain, no shortness of breath. At the Emergency Room, the patient given Daptomycin and Zosyn for possible sepsis. Patient more awake now as per family. MEDICAL HISTORY: As above. SURGERIES: She had section. HOME MEDICATIONS: Include lisinopril, Glucophage, Lopressor, multivitamins, Zantac, vitamin E, Lipitor, ascorbic acid, clonazepam, Neurontin and Levemir. ALLERGIES: PERCOCET, TETRACYCLINE. FAMILY HISTORY: Diabetes. PERSONAL AND SOCIAL HISTORY: Past tobacco abuse. No chronic intake of alcoholic beverages. Retired biomedical field service engineer. REVIEW OF SYSTEMS: As per HPI, all other ROS negative. PHYSICAL EXAMINATION: VITAL SIGNS: Blood pressure was noted to be 110/70, pulse rate 76, later 110; RR 20 T 37 O2sats 96% on room air. GENERAL: Noted to be wane, no resp distress. SKIN: Pallor. HEENT: sparse hair, pale palp conjunctivae. Dry oral mucosa. NECK: Short neck. LUNGS: Decreased breath sounds. HEART: Tachycardic. ABDOMEN: Soft. EXTREMITIES: Minimal LE edema. no tenderness NE no gross focality. LABORATORY AND IMAGING DATA: Hemoglobin 10.3, WBC 7 platelets 100 Sodium 139, potassium 4.4, chloride 104, CO2 27, creatinine 1.6, glucose 238. Lactic acid was 2.09. UA is still pending. CT of the abdomen and pelvis showed moderate right hydronephrosis, left staghorn calculus, cholelithiasis, hepatosplenomegaly, possible cirrhosis. CT head - no acute pathology. ASSESSMENT: 1. Transient encephalopathy currently resolved after initial intervention at the ER multifactorial : home meds. ARF, clinical dehydration possible complicated urinary tract infection secondary to obstructive uropathy. no sepsis for now 2. Hypertension, stable. 3. Cirrhosis secondary to to NAFLD, no gross decompensation 4. Past tobacco abuse. 5. Chronic anemia, hemoglobin at baseline. 6. Thrombocytopenia secondary to infection/?cirrhosis ro HIT 7. DM2, insulin requiring, well controlled as of recent HgA1c of 6.8 (July 2016) 8. diarrhea ro cdif PLAN: GMF Follow UA, urine cultures Zosyn if UA consistent with infection stool cdif Monitor creatinine response to IV fluids. Hold home ACEI until creatinine at baseline. Urology consult RE obstructive uropathy. Hold home neuro psychotropics for sedation, confusion. basal insulin, ISS BG goal 140-180. HIT screen PT/OT eval DVT prophylaxis, SCDs RE thrombocytopenia Full code. MTDD
[2016-10-08] MEDS ORDERED: METOPROLOL TARTRATE 25 MG TAB PO ONE (22:30)
[2016-10-08] MEDS ORDERED: INSULIN ASPART 100 UNITS/ML 3 ML PEN SC ONE (22:30)
[2016-10-08] MEDS ORDERED: MAGNESIUM SULFATE 1GM / D5W 1 GM in PREMIXED IN D5W 100 ML IV ONE (23:00)
[2016-10-08 23:03] VITALS: BP 118/71; PULSE 102; TEMP 37.1; O2SAT 96
[2016-10-09 00:15] VITALS: BP 120/71; PULSE 101
[2016-10-09] MEDS: ATORVASTATIN 20 MG TAB PO SCH ×2 (00:17→21:58)
[2016-10-09] MEDS: GABAPENTIN 100 MG CAP PO SCH ×4 (00:17→19:57)
[2016-10-09] MEDS: RANITIDINE HCL 150 MG TAB PO SCH ×3 (00:18→19:57)
[2016-10-09] MEDS: MULTIVITAMIN TAB PO SCH ×2 (00:18→21:58)
--- NOTE | 2016-10-09 00:27 | EMERGENCY ROOM VISIT NOTE ---
History Report prepared by Taemra: Darnell Coy Under the Supervision of: Dr. Darrin Solis M.D. First contact with patient: 17:49 Chief Complaint: CONFUSION Stated Complaint: CONFUSION History of Present Illness The patient is a 66 year old female who presents to the Emergency Room with complaints of worsening constant confusion starting prior to arrival. The patient's family states that she was sleeping and tried to go to bathroom and could not get up and was confused. The family states that the patient was doing well this morning, and then later around dinner time she was not doing well. The family states that the patient is additionally complaining of right side pain, a cough, on and off fevers, and she feels weak. The family states that the patient has not fallen recently. The family additionally states that the patient was here in April, and she had some nodules in her lungs and liver. They also state that she was admitted in July for sepsis, and they state that she has been having a similar mental status compared to then. The patient has a history of diabetes and hypertension, and she states that her sugar has been okay. Patient's family denies LOC, headache, chills, diaphoresis, visual changes, neck pain, chest pain, breathing difficulties, nausea, vomiting, abdominal pain, back pain, melena, hematochezia, urinary symptoms, numbness, lymphadenopathy, rash, or other complaints. History is limited secondary to altered mental status. Source of History: patient, family History Limited By: AMS Onset: prior to arrival Position: other (global) Quality: other (confusion) Timing: constant, worsening Associated Symptoms: + cough, + fevers, + weakness Note: Associated symptoms: Right side pain Review of Systems HPI is limited secondary to altered mental status. Past Medical & Surgical Medical Problems: (1) Complicated UTI (urinary tract infection) (2) Diabetes (3) Diabetes (4) Hypertension (5) Hypertension (6) Sepsis (7) Sepsis Family History Cancer Cancer Diabetes mellitus Diabetes mellitus Gallbladder disease Gallbladder disease Lung disease Lung disease Social History Smoking Status: Never Smoker Drug Use: none Marital Status: Housing Status: lives with significant other Occupation Status: employed Current/Historical Medications Scheduled Ascorbic Acid (Ascorbic Acid), 500 MG PO DAILY Atorvastatin (Lipitor), 20 MG PO HS Clonazepam (Clonazepam), 1 MG PO HS Fish Oil ([place]-3), 1 CAP PO DAILY Gabapentin (Neurontin), 800 MG PO QID Insulin Detemir (Levemir), 30 UNITS SC QPM Lisinopril (Zestril), 5 MG PO HS Metformin Hcl (Glucophage), 1,000 MG PO BIDM Metoprolol Tartrate (Lopressor) (Lopressor), 12.5 MG PO DAILY Multivitamin (Multivitamin), 1 TAB PO HS Ranitidine (Zantac), 150 MG PO BID Vitamin E (Alph-E), 1 CAP PO QAM Allergies Coded Allergies: Acetaminophen (Unverified Allergy, Unknown, respiratory depression, ) Oxycodone (Unverified Allergy, Unknown, depresses respiratory function, ) Tetracyclines (Unverified Adverse Reaction, Severe, CAUSES DECREASED RESPIRATIONS, YEAST INFECTIONS, 10/08/16) Physical Exam Vital Signs Date Time Temp Pulse Resp B/P Pulse Ox O2 Delivery O2 Flow Rate FiO2 10/08/16 20:15 119/88 10/08/16 20:11 123/53 10/08/16 20:01 116/60 10/08/16 20:00 117 20 100 10/08/16 19:31 143/83 10/08/16 19:30 123 25 99 10/08/16 19:30 40.0 10/08/16 18:41 139/68 10/08/16 18:30 127 22 98 10/08/16 18:08 124 10/08/16 17:55 98 Nasal Cannula 2.0 10/08/16 17:26 37.2 76 18 137/67 96 Room Air Physical Exam GENERAL: Lethargic but arousable.In no distress HENT: Normocephalic, atraumatic. Oropharynx unremarkable. EYES: Normal conjunctiva. Sclera non-icteric. NECK: Supple. No nuchal rigidity. FROM. No JVD. RESPIRATORY: Clear to auscultation. CARDIAC: Tachycardic rate, normal rhythm. Extremities warm and well perfused. Pulses equal. ABDOMEN: Soft, non-distended. No tenderness to palpation. No rebound or guarding. No masses. RECTAL: Deferred. MUSCULOSKELETAL: Chest examination reveals no tenderness. The back is symmetrical on inspection without obvious abnormality. There is no CVA tenderness to palpation. No joint edema. LOWER EXTREMITIES: Calves are equal size bilaterally and non-tender. No edema. No discoloration. NEURO: Normal sensorium. No sensory or motor deficits noted. SKIN: Warm to the touch. No rash or jaundice noted. Medical Decision & Procedures ER Provider Diagnostic Interpretation: X ray results as stated below per my interpretation and radiologist interpretation. Other radiology results as stated below per my review and radiologist interpretation CT OF THE HEAD WITHOUT CONTRAST CLINICAL HISTORY: Weakness. COMPARISON STUDY: Head CT May 09, 2016. TECHNIQUE: Helical axial images of the head were obtained without IV contrast. Automated exposure control was utilized for the study. FINDINGS: No acute intracranial hemorrhage, midline shift or mass effect is present. Ventricular system is normal. Basilar cisterns are patent. There are no extra axial collections. Bermeo-white differentiation is maintained. There are no findings to suggest acute dural sinus thrombosis or acute territorial infarct. There are no significant calvarial abnormalities. Visualized portions of the sinuses and mastoid air cells are clear. IMPRESSION: No acute intracranial findings. Electronically signed by: Chester Martel M.D. 10/08/2016 7:14 PM Dictated Date/Time: 10/08/2016 7:12 PM CHEST ONE VIEW PORTABLE CLINICAL HISTORY: Weakness. Confusion. COMPARISON STUDY: Chest CT September 11, 2016. FINDINGS: Lung volumes are diminished. There is no pneumothorax or pleural effusion. There is no evidence of pulmonary edema. Cardiac size is normal. Mediastinal contours are normal. Mild left basilar opacity favors atelectasis. IMPRESSION: 1. Mild left basilar opacity which favors atelectasis. 2. Diminished lung volumes. Electronically signed by: Chester Martel M.D. 10/08/2016 6:41 PM Dictated Date/Time: 10/08/2016 6:[address] OF THE ABDOMEN AND PELVIS WITHOUT CONTRAST, STONE PROTOCOL CLINICAL HISTORY: Right flank pain. COMPARISON STUDY: PET/CT June 18, [address] of the abdomen and pelvis May 13, 2016 and renal ultrasound August 01, 2016. TECHNIQUE: Helical axial images of the abdomen and pelvis were obtained without IV or oral contrast according to renal stone protocol. FINDINGS: Moderate right hydronephrosis has increased since prior exam. No ureteral calculi are present. There is moderate right perinephric and periureteral infiltration. A 7 mm right renal calculus is noted. There are left renal calculi, including a staghorn calculus within the left collecting system. There is gas within the left collecting system as well as gas within the bladder. There is no left-sided collecting system dilatation. Hepatosplenomegaly is again noted with innumerable hypodense lesions within the liver and spleen which are likely similar to CT of September 11, 2016 when allowing for differences in technique. Gallstones within the gallbladder noted. There is no evidence for a bowel obstruction. No suspicious osseous lesions are present. There are scattered colonic diverticula without evidence for acute diverticulitis. There is a suspected recanalized para umbilical vein. Nodularity liver surface may indicate cirrhosis. Small retroperitoneal lymph nodes are again noted. IMPRESSION: 1. Moderate right hydronephrosis. No ureteral calculi. Differential considerations include a recently passed calculus or infectious process. An occult urothelial lesion could appear similar although is considered less likely. 2. Gas within the left renal collecting system and bladder. This could be due to recent instrumentation. In the absence of recent instrumentation, the findings suggest a gas-forming infectious process. Correlation with urinalysis and history of recent instrumentation is recommended. 3. Bilateral nephrolithiasis, including a left staghorn calculus. 4. Cholelithiasis. 5. Hepatosplenomegaly with innumerable hypodense lesions within the liver and spleen, as shown on prior CT. Overall, the imaging findings raise the possibility of sarcoidosis although metastatic disease remains within the differential. 6. Possible cirrhosis with a recannulized paraumbilical vein which could indicate portal hypertension. Electronically signed by: Chester Martel M.D. 10/08/2016 7:25 PM Dictated Date/Time: 10/08/2016 7:15 PM Laboratory Results 10/08/16 18:07 Red Blood Count 3.65, Mean Corpuscular Volume 85.2, Mean Corpuscular Hemoglobin 28.2, Mean Corpuscular Hemoglobin Concent 33.1, Mean Platelet Volume 9.9, Neutrophils (%) (Auto) 90.6, Lymphocytes (%) (Auto) 3.5, Monocytes (%) (Auto) 5.4, Eosinophils (%) (Auto) 0.3, Basophils (%) (Auto) 0.0, Neutrophils # (Auto) 8.13, Lymphocytes # (Auto) 0.31, Monocytes # (Auto) 0.48, Eosinophils # (Auto) 0.03, Basophils # (Auto) 0.00 10/08/16 18:07 Test 10/08/16 18:07 10/08/16 18:11 10/08/16 19:49 White Blood Count 8.97 K/uL (4.8-10.8) Red Blood Count 3.65 M/uL (4.2-5.4) Hemoglobin 10.3 g/dL (12.0-16.0) Hematocrit 31.1 % (37-47) Mean Corpuscular Volume 85.2 fL (80-100) Mean Corpuscular Hemoglobin 28.2 pg (25-34) Mean Corpuscular Hemoglobin Concent 33.1 g/dl (32-36) Platelet Count 115 K/uL (130-400) Mean Platelet Volume 9.9 fL (7.4-10.4) Neutrophils (%) (Auto) 90.6 % Lymphocytes (%) (Auto) 3.5 % Monocytes (%) (Auto) 5.4 % Eosinophils (%) (Auto) 0.3 % Basophils (%) (Auto) 0.0 % Neutrophils # (Auto) 8.13 K/uL (1.4-6.5) Lymphocytes # (Auto) 0.31 K/uL (1.2-3.4) Monocytes # (Auto) 0.48 K/uL (0.11-0.59) Eosinophils # (Auto) 0.03 K/uL (0-0.5) Basophils # (Auto) 0.00 K/uL (0-0.2) RDW Standard Deviation 53.9 fL (36.4-46.3) RDW Coefficient of Variation 17.3 % (11.5-14.5) Immature Granulocyte % (Auto) 0.2 % Immature Granulocyte # (Auto) 0.02 K/uL (0.00-0.02) Prothrombin Time 11.9 SECONDS (9.0-12.0) Prothromb Time International Ratio 1.1 (0.9-1.1) Activated Partial Thromboplast Time 24.0 SECONDS (21.0-31.0) Partial Thromboplastin Ratio 0.9 Anion Gap 8.0 mmol/L (3-11) Estimated GFR () 38.5 Estimated GFR (Non- 33.2 BUN/Creatinine Ratio 16.3 (10-20) Calcium Level 9.0 mg/dl (8.5-10.1) Magnesium Level 1.6 mg/dl (1.8-2.4) Total Bilirubin 1.2 mg/dl (0.2-1) Direct Bilirubin 0.3 mg/dl (0-0.2) Aspartate Amino Transf (AST/SGOT) 14 U/L (15-37) Alanine Aminotransferase (ALT/SGPT) 18 U/L (12-78) Alkaline Phosphatase 96 U/L (45-117) Total Creatine Kinase 29 U/L (26-192) Creatine Kinase MB < 0.5 ng/ml (0.5-3.6) Creatine Kinase MB Ratio (0-3.0) Troponin I < 0.015 ng/ml (0-0.045) Total Protein 7.8 gm/dl (6.4-8.2) Albumin 3.3 gm/dl (3.4-5.0) Lipase 169 U/L (73-393) Thyroid Stimulating Hormone (TSH) 1.530 uIu/ml (0.300-4.500) Bedside Lactic Acid Venous 2.09 mmol/L (0.90-1.70) Ammonia 13.0 umol/L (11-32) Laboratory results reviewed by me Medications Administered Medications (Trade) Dose Ordered Sig/Lea Route Start Time Stop Time Status Last Admin Dose Admin Sodium Chloride 1,000 ml @ 125 mls/hr Q8H STAT IV 10/08/16 17:49 10/08/16 22:31 DC 10/08/16 19:07 125 MLS/HR Sodium Chloride (Nss 1000ml) 2,000 ml @ 999 mls/hr Q2H1M STAT IV 10/08/16 18:38 10/08/16 20:38 DC 10/08/16 19:07 999 MLS/HR Piperacillin Sod/ Tazobactam Sod 4.5 gm 4.5 gm NOW STAT IV 10/08/16 18:38 10/08/16 18:40 DC 10/08/16 19:07 4.5 GM Daptomycin/Sodium Chloride (Cubicin IV/Nss 50ml) 60 ml @ 100 mls/hr NOW STAT IV 10/08/16 18:38 10/08/16 19:13 DC 10/08/16 19:07 100 MLS/HR Acetaminophen (Tylenol Tab) 1,000 mg NOW STAT PO 10/08/16 19:25 10/08/16 19:31 DC 10/08/16 19:38 1,000 MG ECG Indication: other (confusion) Rate (beats per minute): 125 Rhythm: sinus tachycardia Findings: nonspecific-ST abn, RBBB (incomplete) ED Course 1748: Sodium Chloride 1000 ml @ 125 mls/hr IV 1806: The patient was evaluated in room B11. A complete history and physical exam was performed. 1837: Daptomycin 500mg/ Sodium Chloride 60 ml @ 100 mls/hr IV, Zosyn IV 4.5 gm IV, Sodium Chloride 2000 ml @ 999 mls/hr IV 1924: Acetaminophen 1000mg PO 1936: I reevaluated the patient, and I updated her on the treatment plan. She was doing better, and her mental status has improved, however she is still tachycardic 1940: I discussed the patient's case with Dr. Esteban. He is going to evaluate the patient for further treatment. Medical Decision Triage Nursing notes reviewed. The patient's presentation and history were concerning for altered mental status. Etiologies such as metabolic, infection, hypo/hyperglycemia, electrolyte abnormalities, cardiac sources, intracerebral event, toxicologic, neurologic, as well as others were entertained. The patient was assessed. She was somewhat altered. She was febrile. Patient was hydrated. She was given Tylenol. Her lactate was elevated. She had a normal white blood cell count but significant left shift. Urinalysis was concerning for infection. The patient had signs concerning for sepsis. CT imaging performed as above. Chest x-ray was unremarkable. The patient was given Zosyn and daptomycin. After hydration and the above medications the patient was doing better. Mental status improved. Patient will need further management in the hospital. Consultation was made with internal medicine. The patient was evaluated and admitted for further treatment. The chart was completed utilizing [employer] Speech voice recognition software. Grammatical errors, random word insertions, pronoun errors, and incomplete sentences are an occasional consequence of this system due to software limitations, ambient noise, and hardware issues. Any formal questions or concerns about the content, text, or information contained within the body of this dictation should be directly addressed to the physician for clarification. Consults Time Called: 1936 Consulting Physician: Dr. Esteban Returned Call: 1940 I discussed the patient's case with Dr. Oconer. He is going to evaluate the patient for further treatment. Impression Primary Impression: Sepsis Additional Impression: UTI (urinary tract infection) Scribe Attestation The scribe's documentation has been prepared under my direction and personally reviewed by me in its entirety. I confirm that the note above accurately reflects all work, treatment, procedures, and medical decision making performed by me. Departure Information Dispostion Being Evaluated By Hospitalist Referrals Jean-Pierre Dave M.D. (PCP) Problem Qualifiers
[2016-10-09] MEDS: INSULIN DETEMIR FLEXPEN/FLEX TOUCH 100 UNITS/ML 3ML SC SCH ×3 (00:34→20:07)
[2016-10-09 01:09] LABS: URINE APPEARANCE TURBID (CLEAR); URINE BILIRUBIN NEG (NEG); URINE COLOR YELLOW; URINE EPITHELIAL CELL AUTO >30 /lpf (0-5); URINE NITRITE POS (NEG); URINE SPECIFIC GRAVITY 1.015 (1.000-1.030); UROBILINOGEN NEG (NEG); ZZUR CULT IF INDIC CLEAN CATCH YES
[2016-10-09 01:11] LABS: MANUAL MICROSCOPIC REQUIRED? NO; REVIEW REQ? NO
[2016-10-09] MEDS ORDERED: PIPERACILL/TAZOBAC IV 4.5 GM in DEXTROSE 5% 100ML IV SCH (02:00)
[2016-10-09] MEDS: METRONIDAZOLE 500 MG TAB PO SCH ×3 (04:35→21:57)
[2016-10-09 07:11] LABS: HEMATOCRIT 29.2 % (37-47); MEAN CELL VOLUME 85.9 fL (80-100); MEAN CORPUSCULAR HEMOGLOBIN 27.9 pg (25-34); MEAN CORPUSCULAR HGB CONC 32.5 g/dl (32-36); MEAN PLATELET VOLUME 9.6 fL (7.4-10.4); PLATELET COUNT 144 K/uL (130-400); WHITE BLOOD COUNT 13.32 K/uL (4.8-10.8)
[2016-10-09 07:30] VITALS: BP 147/78; PULSE 104; TEMP 36.8; O2SAT 99
[2016-10-09 07:46] LABS: BLOOD UREA NITROGEN 29 mg/dl (7-18); BUN/CREATININE RATIO 14.3 (10-20); CALCIUM 8.6 mg/dl (8.5-10.1); CARBON DIOXIDE 25 mmol/L (21-32); CHLORIDE 103 mmol/L (98-107); GLUCOSE 314 mg/dl (70-99); MAGNESIUM 2.1 mg/dl (1.8-2.4); POTASSIUM 4.1 mmol/L (3.5-5.1); SODIUM 139 mmol/L (136-145)
[2016-10-09 07:56] LABS: BETA-HYDROXYBUTYRATE 1.31 mg/dL (0.2-2.81)
[2016-10-09] MEDS ORDERED: CEFEPIME CONSULT ACTIVE PRN ×2 (08:00)
[2016-10-09 08:22] LABS: BASO % 0.1 %; BASO ABS # 0.01 K/uL (0-0.2); COMPLETE YES; EOS % 0.4 %; IG% 0.3 %; LYMPH % 5.6 %; LYMPH ABS # 0.75 K/uL (1.2-3.4); MONO % 5.3 %; NEUT % 88.3 %
[2016-10-09] MEDS: METOPROLOL TARTRATE 25 MG TAB PO SCH ×2 (08:34→19:59)
[2016-10-09] MEDS: INSULIN ASPART 100 UNITS/ML 3 ML PEN SC SCH ×4 (08:39→21:57)
[2016-10-09] MEDS ORDERED: PIPERACILL/TAZOBAC CONSULT ACTIVE PRN (09:00)
[2016-10-09] MEDS ORDERED: PHARMACY GLYCEMIC MGMT CONSULT PRN (09:57)
[2016-10-09] MEDS: SODIUM CHLORIDE 0.9% 1000ML 1,000 ML IV SCH ×2 (10:23→19:12)
[2016-10-09] MEDS: CEFEPIME IV 2000 MG in DEXTROSE 5% 100ML IV SCH (10:23)
--- NOTE | 2016-10-09 10:30 | Urology Consultation ---
History General Date of Service: Oct 09, 2016. Chief Complaint: Febrile UTI Primary Care Physician: Jean-Pierre Dave M.D. Pt seen a urologist before?: No History of Present Illness 66y/o female w/ several notable co-morbidities presented to the ER with encephalopathy, fevers, and right flank pain - previously admitted with urosepsis (e.coli) in July - CT on arrival in the ER revealed R perinephric and negrito-ureteral stranding, relatively large kidney, modest dilation of the ureter and the renal pelvis w/ a non-obstructing small stone in the kidney - the L kidney is atrophic with a partial staghorn calculus and a bubble of air within the collecting system (no evidence of air within the renal parenchyma itself - bladder is relatively empty with some irritation around the bladder wall a and a small amount of air in the dome - subjectively, she reports she is feeling dramatically better this morning as compared to last night - no current pain - no fevers in the past several hours - no hematuria/dysuria - no prior consultation - never passed a stone previously - no prior kidney surgery Cr 2.0 this AM - was at a similar value in July - but baseline seems to be < 1.0 Vital Signs Past 12 Hours Date Time Temp Pulse Resp B/P Pulse Ox O2 Delivery O2 Flow Rate FiO2 10/09/16 08:47 Room Air 10/09/16 07:30 36.8 104 20 147/78 99 Room Air 10/09/16 00:15 101 120/71 10/09/16 00:00 Room Air 10/08/16 23:03 37.1 102 18 118/71 96 Room Air 10/09/16 06:54 Red Blood Count 3.40, Mean Corpuscular Volume 85.9, Mean Corpuscular Hemoglobin 27.9, Mean Corpuscular Hemoglobin Concent 32.5, Mean Platelet Volume 9.6, Neutrophils (%) (Auto) 88.3, Lymphocytes (%) (Auto) 5.6, Monocytes (%) (Auto) 5.3, Eosinophils (%) (Auto) 0.4, Basophils (%) (Auto) 0.1, Neutrophils # (Auto) 11.76, Lymphocytes # (Auto) 0.75, Monocytes # (Auto) 0.71, Eosinophils # (Auto) 0.05, Basophils # (Auto) 0.01 10/09/16 06:54 Test 10/08/16 18:07 10/08/16 18:11 10/08/16 19:49 10/08/16 21:17 Prothrombin Time 11.9 SECONDS (9.0-12.0) Prothromb Time International Ratio 1.1 (0.9-1.1) Activated Partial Thromboplast Time 24.0 SECONDS (21.0-31.0) Partial Thromboplastin Ratio 0.9 Total Bilirubin 1.2 mg/dl (0.2-1) Direct Bilirubin 0.3 mg/dl (0-0.2) Aspartate Amino Transf (AST/SGOT) 14 U/L (15-37) Alanine Aminotransferase (ALT/SGPT) 18 U/L (12-78) Alkaline Phosphatase 96 U/L (45-117) Total Creatine Kinase 29 U/L (26-192) Creatine Kinase MB < 0.5 ng/ml (0.5-3.6) Creatine Kinase MB Ratio (0-3.0) Troponin I < 0.015 ng/ml (0-0.045) Total Protein 7.8 gm/dl (6.4-8.2) Albumin 3.3 gm/dl (3.4-5.0) Lipase 169 U/L (73-393) Thyroid Stimulating Hormone (TSH) 1.530 uIu/ml (0.300-4.500) Bedside Lactic Acid Venous 2.09 mmol/L (0.90-1.70) Ammonia 13.0 umol/L (11-32) Lactic Acid Level 1.9 mmol/L (0.4-2.0) Heparin-PF4 Antibody Screen NEG (NEG) Test 10/09/16 00:40 10/09/16 06:54 10/09/16 08:10 Urine Color YELLOW Urine Appearance TURBID (CLEAR) Urine pH 5.0 (4.5-7.5) Urine Specific Adams 1.015 (1.000-1.030) Urine Protein 1+ (NEG) Urine Glucose (UA) NEG (NEG) Urine Ketones TRACE (NEG) Urine Occult Blood 1+ (NEG) Urine Nitrite POS (NEG) Urine Bilirubin NEG (NEG) Urine Urobilinogen NEG (NEG) Urine Leukocyte Esterase LARGE (NEG) Urine WBC (Auto) >30 /hpf (0-5) Urine RBC (Auto) 0-4 /hpf (0-4) Urine Hyaline Casts (Auto) 0 /lpf (0-5) Urine Epithelial Cells (Auto) >30 /lpf (0-5) Urine Bacteria (Auto) 1+ (NEG) White Blood Count 13.32 K/uL (4.8-10.8) Red Blood Count 3.40 M/uL (4.2-5.4) Hemoglobin 9.5 g/dL (12.0-16.0) Hematocrit 29.2 % (37-47) Mean Corpuscular Volume 85.9 fL (80-100) Mean Corpuscular Hemoglobin 27.9 pg (25-34) Mean Corpuscular Hemoglobin Concent 32.5 g/dl (32-36) Platelet Count 144 K/uL (130-400) Mean Platelet Volume 9.6 fL (7.4-10.4) Neutrophils (%) (Auto) 88.3 % Lymphocytes (%) (Auto) 5.6 % Monocytes (%) (Auto) 5.3 % Eosinophils (%) (Auto) 0.4 % Basophils (%) (Auto) 0.1 % Neutrophils # (Auto) 11.76 K/uL (1.4-6.5) Lymphocytes # (Auto) 0.75 K/uL (1.2-3.4) Monocytes # (Auto) 0.71 K/uL (0.11-0.59) Eosinophils # (Auto) 0.05 K/uL (0-0.5) Basophils # (Auto) 0.01 K/uL (0-0.2) RDW Standard Deviation 55.8 fL (36.4-46.3) RDW Coefficient of Variation 17.8 % (11.5-14.5) Immature Granulocyte % (Auto) 0.3 % Immature Granulocyte # (Auto) 0.04 K/uL (0.00-0.02) Anion Gap 11.0 mmol/L (3-11) Estimated GFR () 29.4 Estimated GFR (Non- 25.4 BUN/Creatinine Ratio 14.3 (10-20) Calcium Level 8.6 mg/dl (8.5-10.1) Magnesium Level 2.1 mg/dl (1.8-2.4) Beta-Hydroxybutyric Acid 1.31 mg/dL (0.2-2.81) Bedside Glucose 318 mg/dl (70-90) Date/Time Source Procedure Growth Status 10/09/16 01:04 Stool C.difficile Toxin B Gene (PCR) - Final Positive for C. difficile toxin B gene Complete Laboratory Labs were reviewed and are within normal limits unless listed below. Labs are available in the chart and at [facility] Problem List Medical Problems: (1) ARF (acute renal failure) Status: Acute (2) ARF (acute renal failure) Status: Acute (3) EKG abnormality Status: Acute (4) EKG abnormality Status: Acute (5) Hypercalcemia Status: Acute (6) Hypercalcemia Status: Acute (7) Hyperglycemia Status: Acute (8) Hyperglycemia Status: Acute (9) Urinary tract infection Status: Acute (10) Urinary tract infection Status: Acute (11) UTI (urinary tract infection) Status: Acute Past History diabetes, high cholesterol, hypertension, kidney stones, liver disease Past Surgical History: Family History Cancer Cancer Diabetes mellitus Diabetes mellitus Gallbladder disease Gallbladder disease Lung disease Lung disease Social History Hx Tobacco Use In Past Year?: No Smoking: quit greater than 1 year, no current use Marital status: Occupation status: employed History of MDRO No Allergies Coded Allergies: Acetaminophen (Unverified Allergy, Unknown, respiratory depression, ) Oxycodone (Unverified Allergy, Unknown, depresses respiratory function, ) Tetracyclines (Unverified Adverse Reaction, Severe, CAUSES DECREASED RESPIRATIONS, YEAST INFECTIONS, 10/08/16) Medications Home Medications: Home Meds and Scripts Medications Dose Route/Sig Max Daily Dose Days Date Category Dose Instructions Spencer-3 (Fish Oil) 1 Ea Cap 1 Cap PO DAILY 10/08/16 Reported Lopressor (Metoprolol Tartrate) 25 Mg Tab 12.5 Mg PO DAILY 10/08/16 Reported Clonazepam 1 Mg Tab 1 Mg PO HS 10/08/16 Reported Levemir (Insulin Detemir) 100 Units/Ml Inj 30 Units SC QPM 10/08/16 Reported OR DIRECTED Ascorbic Acid 500 Mg Tab 500 Mg PO DAILY 10/08/16 Reported Zantac (Ranitidine HCl) 150 Mg Tab 150 Mg PO BID 07/16/16 Reported Alph-E (Vitamin E) 400 Unit Cap 1 Cap PO QAM 6/3/16 Reported Multivitamin (Multivitamins) Tab 1 Tab PO HS 12/28/15 Reported Lipitor (Atorvastatin Calcium) 20 Mg Tab 20 Mg PO HS 12/28/15 Reported Zestril (Lisinopril) 5 Mg Tab 5 Mg PO HS 12/28/15 Reported Neurontin (Gabapentin) 800 Mg Tab 800 Mg PO QID 12/28/15 Reported Glucophage (Metformin Hcl) 1,000 Mg Tab 1,000 Mg PO BIDM 10/01/11 Reported Inpatient Medications: Current Inpatient Medications Medications (Trade) Dose Ordered Sig/Lea Route Start Time Stop Time Status Last Admin Dose Admin Acetaminophen (Tylenol Tab) 325 mg Q6H PRN PO 10/08/16 20:30 11/07/16 20:29 Insulin Aspart (novoLOG ASPART) SLIDING SCALE If C... ACHS SC 10/09/16 06:30 11/08/16 06:59 10/09/16 08:39 3 UNITS Glucose (Glucose 40% Gel) 15-30 GRAMS 15 GRAMS... UD PRN PO 10/08/16 20:30 11/07/16 20:29 Glucose (Glucose Chew Tab) 4-8 Tablets 4 Tabl... UD PRN PO 10/08/16 20:30 11/07/16 20:29 Dextrose (Dextrose 50% 50ML Syringe) 25-50ML OF 50% DW IV FOR... UD PRN IV 10/08/16 20:30 11/07/16 20:29 Glucagon (Glucagon Inj) 1 mg UD PRN SQ 10/08/16 20:30 11/07/16 20:29 Hydromorphone HCl (Dilaudid Inj) 0.5 mg Q3H PRN IV 10/08/16 20:30 10/22/16 20:29 Tramadol HCl (Ultram Tab) 25 mg Q6H PRN PO 10/08/16 20:30 11/07/16 20:29 Ondansetron HCl (Zofran Inj) 4 mg Q6H PRN IV 10/08/16 20:30 11/07/16 20:29 Atorvastatin Calcium (Lipitor Tab) 20 mg HS PO 10/08/16 21:00 11/07/16 20:59 10/09/16 00:17 20 MG Gabapentin (Neurontin Cap) 200 mg TID PO 10/08/16 21:00 11/07/16 20:59 10/09/16 08:34 200 MG Metoprolol Tartrate (Lopressor Tab) 12.5 mg BID PO 10/09/16 08:00 11/08/16 08:59 10/09/16 08:34 12.5 MG Multivitamins (Multivitamin Tab) 1 tab HS PO 10/08/16 21:00 11/07/16 20:59 10/09/16 00:18 1 TAB Ranitidine HCl (zANTac TAB) 75 mg BID PO 10/08/16 21:00 11/07/16 20:59 10/09/16 00:18 75 MG Insulin Detemir (Levemir Flexpen/ FlexTouch) 10 unit BID SC 10/08/16 21:00 11/07/16 20:59 10/09/16 08:39 10 UNIT Metronidazole (Flagyl Tab) 500 mg Q8 PO 10/09/16 04:00 10/19/16 03:59 10/09/16 04:35 500 MG Cefepime HCl 1 ea 1 ea UD PRN N/A 10/09/16 08:00 11/08/16 07:59 Cefepime HCl/ Dextrose (Maxipime IV/D5 100ml) 112.5 ml @ 225 mls/hr Q24H IV 10/09/16 10:00 10/19/16 09:59 Miscellaneous Information 1 ea 1 ea UD PRN N/A 10/09/16 09:57 11/08/16 09:56 Sodium Chloride (Nss 1000ml) 1,000 ml @ 125 mls/hr Q8H IV 10/09/16 10:15 11/08/16 10:14 Review of Systems Review of Systems Constitutional: + chills, + fever Eyes: No blurred vision, No double vision, No eye pain, No loss of night vision , No problem reported, No see HPI Neurological: No dizzy, No numbness/tingling, No passing out, No problem reported, No see HPI, No seizures Endocrine: No excessive thirst, No problem reported, No see HPI, No tired/ sluggish, No too cold, No too hot Gastrointestinal: + abdominal pain Cardiovascular: No angina, No chest pain, No heart murmur, No irregular heartbeat, No palpitations, No problem reported, No see HPI, No swelling ankles/ feet Respiratory: No chronic cough, No coughing up blood, No problem reported, No see HPI, No shortness of breath, No wheezing Skin: No boils, No dry skin, No problem reported, No rash, No see HPI Musculoskeletal: No arthritis, No back pain, No joint pain, No neck pain, No problem reported, No see HPI Blood / Lymphatic: No bleed easily, No bruise easily, No problem reported, No see HPI, No swollen glands Ears / Nose / Throat: No hearing loss, No hoarse voice, No problem reported, No see HPI, No sinus, No sore throat Psychologic / Mental: No difficulty sleeping, No nervous, No problem reported, No see HPI, No trouble remembering Female : + infections, + kidney stones All Other Systems: Reviewed and Negative Physical Exam Vital Signs: Vital Signs Past 12 Hours Date Time Temp Pulse Resp B/P Pulse Ox O2 Delivery O2 Flow Rate FiO2 10/09/16 08:47 Room Air 10/09/16 07:30 36.8 104 20 147/78 99 Room Air 10/09/16 00:15 101 120/71 10/09/16 00:00 Room Air 10/08/16 23:03 37.1 102 18 118/71 96 Room Air Physical Exam: General Appearance: WD/WN, no apparent distress (relatively comfortable appearing - no apparent distress) Eyes: bilateral eyes normal inspection ENT: normal ENT inspection, hearing grossly normal Neck: supple, no adenopathy Respiratory/Chest: no respiratory distress, no accessory muscle use Cardiovascular: no edema, + tachycardia (borderline tachy (100bpm)) Gastrointestinal: Abdomen: normal abdomen Renal: normal renal (no CVA tenderness on the right or the left) Extremities: no calf tenderness Neurologic/Psychiatric: alert, normal mood/affect, oriented x 3 (mentating very clearly this AM) Skin: normal color, warm/dry Lymphatic: no adenopathy Assessment & Plan Assessment & Plan UTI (pyelonephritis); partial staghorn on the left - overall, she seems to have responded extremely well to her initial antibiotic treatment - subjectively, she is feeling quite well right now - no clinical signs of sepsis at the moment - on CT - the right side appears most consistent with pyelonephritis without true obstruction - on the left, I have some concerns about the air within the collecting system - and more so, I suspect the stone is a harbor for bacteria; however, she does not have any obstructing stones or hydronephrosis on that side - I have discussed cystoscopy and bilateral stents with her, but at present, I am not certain it is clinically necessary - we will plan for initial close observation with antibiotics - assuming she recovers well, I would keep her on suppressive abx for some time and likely consider non-emergent (outpt) referral for potential percutaneous nephrolithotomy of the left sided stone - if her condition regresses, I would reconsider stenting on an emergent basis - we will additionally trend her Cr as I suspect this is an acute reaction that will correct without stents
[2016-10-09 11:05] VITALS: BMI 35.9
[2016-10-09] MEDS: PATIENT'S HEIGHT AND/OR WEIGHT NEEDED SCH ×2 (11:05→12:04)
--- NOTE | 2016-10-09 11:10 | Progress Note ---
Medicine Progress Note Date & Time of Visit: Oct 09, 2016 at 10:55. Subjective patient seen resting in bed alert, orientedx 3, comfortable states she feels improved compared to yesterday has mild intermittent right, suprapubic pain, no changes with urination/fever/ chills/nausea 2 soft BMs today, no abdominal pain denies chest pain, dyspnea, dizziness, palpitations no other symptoms Objective Last 8 Hrs Date Time Temp Pulse Resp B/P Pulse Ox O2 Delivery O2 Flow Rate FiO2 10/09/16 08:47 Room Air 10/09/16 07:30 36.8 104 20 147/78 99 Room Air Physical Exam: General- oriented x 3, not in distress, speaks in sentences with no effort Head- atraumatic Eyes- EOMI, anicteric ENT- oropharynx clear Neck- supple, no JVD, no adenopath Lungs- clear to auscultation bilaterally Heart- normal rate, regular rhythm; no murmurs Abdomen- normal bowel sounds, soft, nontender, no CVA tenderness Extremities- no pretibial edema, no calf tenderness Neuro- alert, oriented x 3; no gross focal deficits Skin- warm & dry Laboratory Results: Last 24 Hours Test 10/08/16 18:07 10/08/16 18:11 10/08/16 18:15 10/08/16 19:49 White Blood Count 8.97 K/uL Red Blood Count 3.65 M/uL Hemoglobin 10.3 g/dL Hematocrit 31.1 % Mean Corpuscular Volume 85.2 fL Mean Corpuscular Hemoglobin 28.2 pg Mean Corpuscular Hemoglobin Concent 33.1 g/dl Platelet Count 115 K/uL Mean Platelet Volume 9.9 fL Neutrophils (%) (Auto) 90.6 % Lymphocytes (%) (Auto) 3.5 % Monocytes (%) (Auto) 5.4 % Eosinophils (%) (Auto) 0.3 % Basophils (%) (Auto) 0.0 % Neutrophils # (Auto) 8.13 K/uL Lymphocytes # (Auto) 0.31 K/uL Monocytes # (Auto) 0.48 K/uL Eosinophils # (Auto) 0.03 K/uL Basophils # (Auto) 0.00 K/uL RDW Standard Deviation 53.9 fL RDW Coefficient of Variation 17.3 % Immature Granulocyte % (Auto) 0.2 % Immature Granulocyte # (Auto) 0.02 K/uL Prothrombin Time 11.9 SECONDS Prothromb Time International Ratio 1.1 Activated Partial Thromboplast Time 24.0 SECONDS Partial Thromboplastin Ratio 0.9 Sodium Level 139 mmol/L Potassium Level 4.4 mmol/L Chloride Level 104 mmol/L Carbon Dioxide Level 27 mmol/L Anion Gap 8.0 mmol/L Blood Urea Nitrogen 26 mg/dl Creatinine 1.60 mg/dl Estimated GFR () 38.5 Estimated GFR (Non- 33.2 BUN/Creatinine Ratio 16.3 Random Glucose 238 mg/dl Calcium Level 9.0 mg/dl Magnesium Level 1.6 mg/dl Total Bilirubin 1.2 mg/dl Direct Bilirubin 0.3 mg/dl Aspartate Amino Transf (AST/SGOT) 14 U/L Alanine Aminotransferase (ALT/SGPT) 18 U/L Alkaline Phosphatase 96 U/L Total Creatine Kinase 29 U/L Creatine Kinase MB < 0.5 ng/ml Creatine Kinase MB Ratio Troponin I < 0.015 ng/ml Total Protein 7.8 gm/dl Albumin 3.3 gm/dl Lipase 169 U/L Thyroid Stimulating Hormone (TSH) 1.530 uIu/ml Bedside Lactic Acid Venous 2.09 mmol/L Ammonia umol/L 13.0 umol/L Test 10/08/16 21:17 10/08/16 23:21 10/09/16 00:40 10/09/16 06:54 Lactic Acid Level 1.9 mmol/L Heparin-PF4 Antibody Screen NEG Bedside Glucose 249 mg/dl Urine Color YELLOW Urine Appearance TURBID Urine pH 5.0 Urine Specific Alexis 1.015 Urine Protein 1+ Urine Glucose (UA) NEG Urine Ketones TRACE Urine Occult Blood 1+ Urine Nitrite POS Urine Bilirubin NEG Urine Urobilinogen NEG Urine Leukocyte Esterase LARGE Urine WBC (Auto) >30 /hpf Urine RBC (Auto) 0-4 /hpf Urine Hyaline Casts (Auto) 0 /lpf Urine Epithelial Cells (Auto) >30 /lpf Urine Bacteria (Auto) 1+ White Blood Count 13.32 K/uL Red Blood Count 3.40 M/uL Hemoglobin 9.5 g/dL Hematocrit 29.2 % Mean Corpuscular Volume 85.9 fL Mean Corpuscular Hemoglobin 27.9 pg Mean Corpuscular Hemoglobin Concent 32.5 g/dl Platelet Count 144 K/uL Mean Platelet Volume 9.6 fL Neutrophils (%) (Auto) 88.3 % Lymphocytes (%) (Auto) 5.6 % Monocytes (%) (Auto) 5.3 % Eosinophils (%) (Auto) 0.4 % Basophils (%) (Auto) 0.1 % Neutrophils # (Auto) 11.76 K/uL Lymphocytes # (Auto) 0.75 K/uL Monocytes # (Auto) 0.71 K/uL Eosinophils # (Auto) 0.05 K/uL Basophils # (Auto) 0.01 K/uL RDW Standard Deviation 55.8 fL RDW Coefficient of Variation 17.8 % Immature Granulocyte % (Auto) 0.3 % Immature Granulocyte # (Auto) 0.04 K/uL Sodium Level 139 mmol/L Potassium Level 4.1 mmol/L Chloride Level 103 mmol/L Carbon Dioxide Level 25 mmol/L Anion Gap 11.0 mmol/L Blood Urea Nitrogen 29 mg/dl Creatinine 2.00 mg/dl Estimated GFR () 29.4 Estimated GFR (Non- 25.4 BUN/Creatinine Ratio 14.3 Random Glucose 314 mg/dl Calcium Level 8.6 mg/dl Magnesium Level 2.1 mg/dl Beta-Hydroxybutyric Acid 1.31 mg/dL Test 10/09/16 08:10 Bedside Glucose 318 mg/dl Date/Time Source Procedure Growth Status 10/08/16 18:15 Blood Blood Culture Pending Received 10/08/16 18:07 Blood Blood Culture Pending Received 10/09/16 01:04 Stool C.difficile Toxin B Gene (PCR) - Final Positive for C. difficile toxin B gene Complete 10/09/16 00:40 Urine , Clean Catch Urine Culture Pending Received 10/08/16 18:29 Urine,Catheterized Urine Culture Pending Received Assessment & Plan 66 year old female with history of DM, HTN, CKD 3, BOWDEN, Possible Sarcoidosis presenting with altered mental status ALTERED MENTAL STATUS LIKELY METABOLIC ENCEPHALOPATHY SECONDARY TO resolved SEPSIS FROM UTI, C DIFF COLITIS - ff up urine cultures blood cultures C diff (+) - afebrile, although WBC elevated diarrhea improving - continue Cefepime, Flagyl RIGHT HYDRONEPHROSIS, WITH ACUTE RENAL FAILURE ON CKD 3 BILATERAL NEPHROLITHIASIS - crea increased to 2.0 - 1. Moderate right hydronephrosis. No ureteral calculi. Differential considerations include a recently passed calculus or infectious process. An occult urothelial lesion could appear similar although is considered less likely. 2. Gas within the left renal collecting system and bladder. This could be due to recent instrumentation. In the absence of recent instrumentation, the findings suggest a gas-forming infectious process. Correlation with urinalysis and history of recent instrumentation is recommended. 3. Bilateral nephrolithiasis, including a left staghorn calculus. 4. Cholelithiasis. - continue IV fluids, antibiotics Urology consulted, medical management for now, monitor response appreciate the recommendations DM 2 on Lantus ISS Pharm consulted HTN stable BOWDEN outpatient management POSSIBLE SARCOIDOSIS CT abdomen: - Hepatosplenomegaly with innumerable hypodense lesions within the liver and spleen, as shown on prior CT. Overall, the imaging findings raise the possibility of sarcoidosis although metastatic disease remains within the differential. - Possible cirrhosis with a recannulized paraumbilical vein which could indicate portal hypertension. -- continue outpatient management DVT prophylaxis SCDs for now heparin if no surgical intervention contemplated Disposition pending Current Inpatient Medications: Current Inpatient Medications Medications (Trade) Dose Ordered Sig/Lea Route Start Time Stop Time Status Last Admin Dose Admin Acetaminophen (Tylenol Tab) 325 mg Q6H PRN PO 10/08/16 20:30 11/07/16 20:29 Insulin Aspart (novoLOG ASPART) SLIDING SCALE If C... ACHS SC 10/09/16 06:30 11/08/16 06:59 10/09/16 08:39 3 UNITS Glucose (Glucose 40% Gel) 15-30 GRAMS 15 GRAMS... UD PRN PO 10/08/16 20:30 11/07/16 20:29 Glucose (Glucose Chew Tab) 4-8 Tablets 4 Tabl... UD PRN PO 10/08/16 20:30 11/07/16 20:29 Dextrose (Dextrose 50% 50ML Syringe) 25-50ML OF 50% DW IV FOR... UD PRN IV 10/08/16 20:30 11/07/16 20:29 Glucagon (Glucagon Inj) 1 mg UD PRN SQ 10/08/16 20:30 11/07/16 20:29 Hydromorphone HCl (Dilaudid Inj) 0.5 mg Q3H PRN IV 10/08/16 20:30 10/22/16 20:29 Tramadol HCl (Ultram Tab) 25 mg Q6H PRN PO 10/08/16 20:30 11/07/16 20:29 Ondansetron HCl (Zofran Inj) 4 mg Q6H PRN IV 10/08/16 20:30 11/07/16 20:29 Atorvastatin Calcium (Lipitor Tab) 20 mg HS PO 10/08/16 21:00 11/07/16 20:59 10/09/16 00:17 20 MG Gabapentin (Neurontin Cap) 200 mg TID PO 10/08/16 21:00 11/07/16 20:59 10/09/16 08:34 200 MG Metoprolol Tartrate (Lopressor Tab) 12.5 mg BID PO 10/09/16 08:00 11/08/16 08:59 10/09/16 08:34 12.5 MG Multivitamins (Multivitamin Tab) 1 tab HS PO 10/08/16 21:00 11/07/16 20:59 10/09/16 00:18 1 TAB Ranitidine HCl (zANTac TAB) 75 mg BID PO 10/08/16 21:00 11/07/16 20:59 10/09/16 00:18 75 MG Insulin Detemir (Levemir Flexpen/ FlexTouch) 10 unit BID SC 10/08/16 21:00 11/07/16 20:59 10/09/16 08:39 10 UNIT Metronidazole (Flagyl Tab) 500 mg Q8 PO 10/09/16 04:00 10/19/16 03:59 10/09/16 04:35 500 MG Cefepime HCl 1 ea 1 ea UD PRN N/A 10/09/16 08:00 11/08/16 07:59 Cefepime HCl/ Dextrose (Maxipime IV/D5 100ml) 112.5 ml @ 225 mls/hr Q24H IV 10/09/16 10:00 10/19/16 09:59 10/09/16 10:23 225 MLS/HR Miscellaneous Information 1 ea 1 ea UD PRN N/A 10/09/16 09:57 11/08/16 09:56 Sodium Chloride (Nss 1000ml) 1,000 ml @ 125 mls/hr Q8H IV 10/09/16 10:15 11/08/16 10:14 10/09/16 10:23 125 MLS/HR
[2016-10-09 12:36] VITALS: Ht 165.1 cm; Wt 97.7 kg
[2016-10-09] MEDS ORDERED: INSULIN DETEMIR FLEXPEN/FLEX TOUCH 100 UNITS/ML 3ML SC SCH (13:30)
[2016-10-09 15:31] VITALS: BP 147/79; PULSE 111; TEMP 37.2; O2SAT 100
[2016-10-09 16:00] VITALS: O2SAT 100
--- NOTE | 2016-10-09 16:03 | Pharmacy Progress Note ---
Glycemic Control Intl Consult Date of Service Oct 09, 2016. Scope Glycemic Pharmacist consulted by Dr Trujillo on 10/09/16 for glycemic control and to write orders per [facility] inpatient glycemic control protocol Objective Weight (Kilograms): 97.720 Accuchecks BSG (last 24hrs): Test 10/08/16 18:07 10/08/16 23:21 10/09/16 06:54 10/09/16 08:10 Random Glucose 238 mg/dl (70-99) 314 mg/dl (70-99) Bedside Glucose 249 mg/dl (70-90) 318 mg/dl (70-90) Test 10/09/16 11:45 Bedside Glucose 405 mg/dl (70-90) Laboratory Data (last 24hrs) Test 10/08/16 18:07 10/09/16 06:54 Anion Gap 8.0 mmol/L 11.0 mmol/L BUN/Creatinine Ratio 16.3 14.3 Blood Urea Nitrogen 26 mg/dl 29 mg/dl Creatinine 1.60 mg/dl 2.00 mg/dl Potassium Level 4.4 mmol/L 4.1 mmol/L Sodium Level 139 mmol/L 139 mmol/L White Blood Count 8.97 K/uL 13.32 K/uL Red Blood Count 3.65 M/uL 3.40 M/uL Hemoglobin 10.3 g/dL 9.5 g/dL Hematocrit 31.1 % 29.2 % Mean Corpuscular Volume 85.2 fL 85.9 fL Mean Corpuscular Hemoglobin 28.2 pg 27.9 pg Mean Corpuscular Hemoglobin Concent 33.1 g/dl 32.5 g/dl Platelet Count 115 K/uL 144 K/uL Mean Platelet Volume 9.9 fL 9.6 fL Neutrophils (%) (Auto) 90.6 % 88.3 % Lymphocytes (%) (Auto) 3.5 % 5.6 % Monocytes (%) (Auto) 5.4 % 5.3 % Eosinophils (%) (Auto) 0.3 % 0.4 % Basophils (%) (Auto) 0.0 % 0.1 % Neutrophils # (Auto) 8.13 K/uL 11.76 K/uL Lymphocytes # (Auto) 0.31 K/uL 0.75 K/uL Monocytes # (Auto) 0.48 K/uL 0.71 K/uL Eosinophils # (Auto) 0.03 K/uL 0.05 K/uL Basophils # (Auto) 0.00 K/uL 0.01 K/uL HbA1c pending 10/10/16 Recent Pertinent Medications Outpatient Anti-diabetic Regimen: * Levemir 34 units qpm, Metformin 1 Gm bid w/meals * A1c = pending 10/10/16 The patient is currently receiving: * Basal insulin: Levemir 10 units every 12 hours, extra 5 units given@ 1355 * Correctional Insulin: Novolog Correction per scale ACHS Goal Range: Low 140 mg/dL - High 180 mg/dL Correction Factor: 50 mg/dL/unit * Prandial insulin: none * Oral Agents: none Risk Factors for Insulin Resistance: * Steroids: no * Infection: complicated UTI, on cefepime; (+) C. difficile, on metronidazole po * Pressors: no * IVF: NS@125 ml/hr * Recent Surgery: no * Diet: npo, advancing to type 2 diabetic lactose free * Mechanical Ventilation: no Assessment & Plan ASSESSMENT: * ADA & AACE recommend a goal blood sugar range 140-180 mg/dl for the majority of critically ill & non-critically ill patients. However, more stringent targets may be selected in individual cases. * 66 yo type 2 diabetic known to us from previous admissions. A1c pending to assess recent glycemic control. BSG's high, so increased Levemir, tightened correction factor and added carb coverage. Will reassess in am. PLAN FOR INPATIENT GLYCEMIC CONTROL: * Increasing Levemir to 15 units SQ BID * Changing correction factor to 25 mg/dl/unit * Changing carb ratio to 1 unit per 10 grams CHO consumed * Continuing goal range Low 140 mg/dL - High 180 mg/dL * Please note that the plan above was derived based on current level of insulin resistance and hospital stress. These recommendations are appropriate for inpatient admission only. Plan of care upon discharge will need to be reassessed to avoid potential outpatient hypo/hyperglycemia. Thank you.
[2016-10-09 20:00] VITALS: TEMP 38.1
[2016-10-09 22:00] VITALS: TEMP 37.1
[2016-10-10 00:08] VITALS: BP 120/64; PULSE 94; TEMP 36.8; O2SAT 99
[2016-10-10] MEDS ORDERED: INSULIN ASPART 100 UNITS/ML 3 ML PEN SC SCH ×2 (02:00→18:00)
[2016-10-10] MEDS: SODIUM CHLORIDE 0.9% 1000ML 1,000 ML IV SCH ×3 (02:23→17:33)
[2016-10-10] MEDS: METRONIDAZOLE 500 MG TAB PO SCH ×3 (06:01→21:24)
[2016-10-10 07:45] VITALS: O2SAT 98
[2016-10-10 07:50] VITALS: BP 136/74; PULSE 102; TEMP 36.9; O2SAT 98
[2016-10-10] MEDS: INSULIN ASPART 100 UNITS/ML 3 ML PEN SC SCH ×2 (07:58→12:46)
[2016-10-10] MEDS: METOPROLOL TARTRATE 25 MG TAB PO SCH ×2 (08:01→21:13)
[2016-10-10] MEDS: GABAPENTIN 100 MG CAP PO SCH ×3 (08:03→21:13)
[2016-10-10] MEDS: RANITIDINE HCL 150 MG TAB PO SCH ×2 (08:03→21:11)
[2016-10-10] MEDS ORDERED: INSULIN DETEMIR FLEXPEN/FLEX TOUCH 100 UNITS/ML 3ML SC SCH (08:15)
[2016-10-10 08:24] LABS: HEMATOCRIT 24.6 % (37-47); MEAN CELL VOLUME 83.4 fL (80-100); MEAN CORPUSCULAR HEMOGLOBIN 27.5 pg (25-34); MEAN CORPUSCULAR HGB CONC 32.9 g/dl (32-36); RED BLOOD COUNT 2.95 M/uL (4.2-5.4); WHITE BLOOD COUNT 5.22 K/uL (4.8-10.8)
--- NOTE | 2016-10-10 08:32 | Progress Note ---
Subjective Date of Service: Oct 10, 2016. Subjective Pt evaluation today including: conversation w/ patient, physical exam, chart review, lab review Voiding: no voiding problems Febrile again overnight subjectively feeling well occasional right flank pain 10/10/16 07:40 Red Blood Count 2.95, Mean Corpuscular Volume 83.4, Mean Corpuscular Hemoglobin 27.5, Mean Corpuscular Hemoglobin Concent 32.9 Test 10/10/16 07:34 10/10/16 07:40 Bedside Glucose 156 mg/dl (70-90) White Blood Count 5.22 K/uL (4.8-10.8) Red Blood Count 2.95 M/uL (4.2-5.4) Hemoglobin 8.1 g/dL (12.0-16.0) Hematocrit 24.6 % (37-47) Mean Corpuscular Volume 83.4 fL (80-100) Mean Corpuscular Hemoglobin 27.5 pg (25-34) Mean Corpuscular Hemoglobin Concent 32.9 g/dl (32-36) RDW Standard Deviation 54.3 fL (36.4-46.3) RDW Coefficient of Variation 17.6 % (11.5-14.5) Vital Signs Past 12 Hours Date Time Temp Pulse Resp B/P Pulse Ox O2 Delivery O2 Flow Rate FiO2 10/10/16 07:50 36.9 102 18 136/74 98 10/10/16 00:08 36.8 94 20 120/64 99 Room Air 10/10/16 00:00 Room Air 10/09/16 22:00 37.1 Problem List Medical Problems: (1) ARF (acute renal failure) Status: Acute (2) ARF (acute renal failure) Status: Acute (3) EKG abnormality Status: Acute (4) EKG abnormality Status: Acute (5) Hypercalcemia Status: Acute (6) Hypercalcemia Status: Acute (7) Hyperglycemia Status: Acute (8) Hyperglycemia Status: Acute (9) Urinary tract infection Status: Acute (10) Urinary tract infection Status: Acute (11) UTI (urinary tract infection) Status: Acute Review of Systems Constitutional: + fever Eyes: No diplopia, No discharge, No eye pain, No problem reported, No redness, No see HPI, No worsening of vision ENT: No dental problems, No hearing loss, No nasal symptoms, No problem reported, No see HPI, No sore throat, No tinnitus, No trouble swallowing, No unusual epistaxis Breast: No breast lump, No breast pain, No change in shape, No nipple discharge , No problem reported, No see HPI Abdomen: + problem reported Musculoskeletal: No calf pain, No joint pain, No muscle pain, No problem reported, No see HPI, No swelling Female : + urinary frequency Neurologic: No balance problems, No memory loss, No numbness/tingling, No paralysis, No problem reported, No see HPI, No vertigo, No weakness Psychiatric: No anhedonism, No anxiety, No depression symptoms, No insomnia, No problem reported, No see HPI, No substance abuse Endo: No excessive thirst, No excessive urination, No fatigue, No problem reported, No see HPI Objective Vital Signs Date Time Temp Pulse Resp B/P Pulse Ox O2 Delivery O2 Flow Rate FiO2 10/10/16 07:50 36.9 102 18 136/74 98 10/10/16 00:08 36.8 94 20 120/64 99 Room Air 10/10/16 00:00 Room Air 10/09/16 22:00 37.1 10/09/16 20:00 38.1 10/09/16 16:00 100 Room Air 10/09/16 15:31 37.2 111 18 147/79 100 Room Air 10/09/16 08:47 Room Air Physical Exam General Appearance: no apparent distress Eyes: normal inspection ENT: hearing grossly normal Neck: no adenopathy Respiratory/Chest: no respiratory distress, no accessory muscle use Cardiovascular: regular rate, rhythm, no edema Abdomen: non tender, soft Extremities: no pedal edema Neurologic/Psychiatric: alert, normal mood/affect, oriented x 3 Skin: normal color, warm/dry Lymphatic: no adenopathy Laboratory Results Last 24 Hours Test 10/09/16 11:45 10/09/16 17:01 10/09/16 20:00 10/10/16 02:03 Bedside Glucose 405 mg/dl 206 mg/dl 284 mg/dl 138 mg/dl Test 10/10/16 07:34 10/10/16 07:40 Bedside Glucose 156 mg/dl White Blood Count 5.22 K/uL Red Blood Count 2.95 M/uL Hemoglobin 8.1 g/dL Hematocrit 24.6 % Mean Corpuscular Volume 83.4 fL Mean Corpuscular Hemoglobin 27.5 pg Mean Corpuscular Hemoglobin Concent 32.9 g/dl RDW Standard Deviation 54.3 fL RDW Coefficient of Variation 17.6 % Assessment and Plan Pyelonephritis; emphysematous pyelitis (left); partial staghorn calculus - febrile again overnight - she continues to look remarkably well - on exam, no outward signs of distress /sepsis - that said, with her CT appearance of the kidneys and fever overnight (38.1), I have suggested we place ureteral stents as a precaution - we have discussed pros and cons of this, and the potential that the stents will add to her discomfort, but overall, I believe they give us the best chance to adequately treat her infection with the lowest risk of recurrence/progression - cont abx coverage as this will be the main aspect of her treatment - npo now
[2016-10-10 08:51] LABS: BUN/CREATININE RATIO 15.2 (10-20); CALCIUM 8.6 mg/dl (8.5-10.1); CREATININE 1.1 mg/dl (0.60-1.20); POTASSIUM 3.9 mmol/L (3.5-5.1)
[2016-10-10 09:43] LABS: ESTIMATED AVERAGE GLUCOSE 154 mg/dl; HA1C FLAG Normal (Normal)
[2016-10-10] MEDS: CEFEPIME IV 2000 MG in DEXTROSE 5% 100ML IV SCH (10:06)
[2016-10-10 10:07] LABS: COMPLETE YES; EOS % 1.6 %; IG% 0.2 %; LYMPH % 12.6 %; LYMPH ABS # 0.69 K/uL (1.2-3.4); MEAN PLATELET VOLUME 10.1 fL (7.4-10.4); MONO % 7.3 %; NEUT % 78.3 %; PLATELET COUNT 101 K/uL (130-400)
--- NOTE | 2016-10-10 12:07 | Pharmacy Progress Note ---
Glycemic Control: Progress Nt Date of Service Oct 10, 2016. Scope Glycemic Pharmacist consulted by Dr Trujillo on 10/09/16 for glycemic control and to write orders per [facility] inpatient glycemic control protocol. Objective Accuchecks BSG (last 24hrs): Test 10/09/16 17:01 10/09/16 20:00 10/10/16 02:03 10/10/16 07:34 Bedside Glucose 206 mg/dl (70-90) 284 mg/dl (70-90) 138 mg/dl (70-90) 156 mg/dl (70-90) Test 10/10/16 07:40 Random Glucose 148 mg/dl (70-99) Laboratory Data (last 24hrs) Test 10/10/16 07:40 Anion Gap 10.0 mmol/L BUN/Creatinine Ratio 15.2 Blood Urea Nitrogen 17 mg/dl Creatinine 1.10 mg/dl Hemoglobin A1c 7.0 % Potassium Level 3.9 mmol/L Sodium Level 140 mmol/L White Blood Count 5.22 K/uL Red Blood Count 2.95 M/uL Hemoglobin 8.1 g/dL Hematocrit 24.6 % Mean Corpuscular Volume 83.4 fL Mean Corpuscular Hemoglobin 27.5 pg Mean Corpuscular Hemoglobin Concent 32.9 g/dl Platelet Count 101 K/uL Mean Platelet Volume 10.1 fL Neutrophils (%) (Auto) 78.3 % Lymphocytes (%) (Auto) 12.6 % Monocytes (%) (Auto) 7.3 % Eosinophils (%) (Auto) 1.6 % Basophils (%) (Auto) 0.0 % Neutrophils # (Auto) 4.27 K/uL Lymphocytes # (Auto) 0.69 K/uL Monocytes # (Auto) 0.40 K/uL Eosinophils # (Auto) 0.09 K/uL Basophils # (Auto) 0.00 K/uL HbA1c: Test 10/10/16 07:40 Hemoglobin A1c 7.0 % (4.5-5.6) H Recent Pertinent Medications The patient is currently receiving: * Basal insulin: Levemir 15 units every 12 hours * Correctional Insulin: Novolog Correction per scale ACHS Goal Range: Low 120 mg/dL - High 160 mg/dL Correction Factor: 25 mg/dL/unit * Prandial insulin: Per carb ratio of 1 unit per 10 grams CHO consumed * Oral Agents: On hold for admission Risk Factors for Insulin Resistance: * Infection * Recent Surgery * Diet Assessment & Plan ASSESSMENT: * 66yo T2DM female with adequate outpatient glycemic control per recent A1c of 7 % today. Seems reasonable for patient to resume outpatient regimen at discharge * Pt is currently receiving SQ basal bolus insulin regimen while admitted and oral agents on hold. Basal insulin has been split BID to prevent hypo when PO intake changes * Pt is to have surgical intervention this afternoon - ureteral stent placement , and will be NPO. Pt will need a decreased insulin dosing x 1 to prevent hypo while NPO. * ADA & AACE recommend a goal blood sugar range 140-180 mg/dl for the majority of critically ill & non-critically ill patients. However, more stringent targets may be selected in individual cases. Will utilize more stringent goal range of 110-140mg/dl based on age and tight glycemic control at baseline. Additionally, tight glycemic control warranted to facilitate infection healing. PLAN FOR INPATIENT GLYCEMIC CONTROL: * Holding outpatient oral diabetes medications * Decrease basal insulin dose x 1 this AM for NPO: Give Lantus 10 units SQ x 1, then, resume basal insulin with Lantus 15 units SQ BID * Correctional Insulin with NOVOLOG per scale ACHS or Q6hrs while NPO * Goal Range: Low 110 mg/dL - High 140 mg/dL * Correction Factor: 25 mg/dL/unit * Nutritional / Prandial insulin per carb ratio of 1 unit per 8 grams CHO consumed * Please note that the plan above was derived based on current level of insulin resistance and hospital stress. These recommendations are appropriate for inpatient admission only. Plan of care upon discharge will need to be reassessed to avoid potential outpatient hypo/hyperglycemia. Thank you.
[2016-10-10] MEDS ORDERED: PROPOFOL IV EMULSION 10 MG/ML 20 ML VIAL IV ONE (15:30)
[2016-10-10] MEDS ORDERED: FENTANYL CITRATE INJ 50 MCG/1 ML 2 ML VIAL ONE (15:30)
[2016-10-10] MEDS ORDERED: MIDAZOLAM HCL 1 MG/ML 2ML VIAL ONE (15:30)
[2016-10-10] MEDS ORDERED: LIDOCAINE HCL 2% 2 ML VIAL (20MG/ML) ONE (15:30)
[2016-10-10] MEDS ORDERED: KETAMINE HCL INJ 50 MG/ML 10 ML VIAL ONE (16:05)
[2016-10-10] MEDS ORDERED: CONRAY 30% 150ML BOTTLE INSTIL ONE (16:14)
--- NOTE | 2016-10-10 16:28 | [facility] Post Operative Brief Note ---
Immediate Operative Summary Operative Date Oct 10, 2016. Pre-Operative Diagnosis B/l hydronephrosis; b/l nephrolithiasis; UTI Post-Operative Diagnosis same Procedure(s) Performed cystoscopy, b/l retrograde pyelogram, b/l ureteral stent placement ([id number]) Surgeon Dannie Chin MD [employer] Surgeon(s) none Estimated Blood Loss 0cc Findings Ptotic left kidney; large upper pole partial staghorn calculus on the left Specimens none Drains [id number] double- J stent (b/l) Anesthesia MAC Complication(s) None Disposition Recovery Room / PACU (stable)
--- NOTE | 2016-10-10 16:41 | DIAGNOSTIC IMAGING REPORT ---
RETROGRADE INCLUDES KUB HISTORY: BILATERAL STENTS FLUOROSCOPY TIME: 26 seconds. FINDINGS: 4 fluoroscopic spot images were submitted for review. Images demonstrate retrograde opacification of the bilateral renal collecting systems with placement of bilateral ureteral stents. Only the proximal portion of the stents are visualized and appear to be in good position. IMPRESSION: Fluoroscopy provided for bilateral ureteral stent placement. Electronically signed by: Denzel Jose M.D. 10/10/2016 4:40 PM Dictated Date/Time: 10/10/2016 4:39 PM
--- NOTE | 2016-10-10 16:51 | Anesthesiology Progress Note ---
Anesthesia Post Op Note Date & Time Oct 10, 2016 at 16:51 Vital Signs Pain Intensity: 0 Vital Signs Past 12 Hours Date Time Temp Pulse Resp B/P Pulse Ox O2 Delivery O2 Flow Rate FiO2 10/10/16 16:48 79 17 99 10/10/16 16:48 79 17 10/10/16 16:46 122/69 10/10/16 16:43 83 15 99 10/10/16 16:43 82 15 10/10/16 16:42 84 21 97 10/10/16 16:42 83 21 10/10/16 16:41 117/58 10/10/16 16:37 82 18 10/10/16 16:37 82 18 98 10/10/16 16:36 124/61 10/10/16 16:32 81 18 100 10/10/16 16:32 82 18 10/10/16 16:31 104/57 10/10/16 16:28 106/57 10/10/16 16:27 87 11 100 10/10/16 16:27 36.1 85 16 106/57 100 Nasal Cannula 2 10/10/16 16:27 87 11 10/10/16 07:50 36.9 102 18 136/74 98 10/10/16 07:45 98 Room Air Notes Mental Status: alert / awake / arousable, participated in evaluation Pt Amnestic to Procedure: Yes Nausea / Vomiting: adequately controlled Pain: adequately controlled Airway Patency, RR, SpO2: stable & adequate BP & HR: stable & adequate Hydration State: stable & adequate Anesthetic Complications: no major complications apparent
--- NOTE | 2016-10-10 17:19 | OPERATIVE REPORT ---
DATE OF OPERATION: 10/10/2016 PREOPERATIVE DIAGNOSES: Bilateral hydronephrosis and bilateral nephrolithiasis. POSTOPERATIVE DIAGNOSES: Same. PROCEDURES PERFORMED: Cystoscopy, bilateral ureteral stent placement, 6-Uruguayan x 24 cm. ANESTHESIA: MAC. ESTIMATED BLOOD LOSS: 0. URINE OUTPUT: Not recorded. SPECIMENS: There were no specimens. COMPLICATIONS: There were no complications. DESCRIPTION OF THE PROCEDURE: Evangelina Tijerina was identified in the preoperative holding area. Appropriate informed consents were reviewed and completed and the patient was transported to the operative suite. Upon arrival, she received appropriate preoperative antibiotics in the form of cefepime. Adequate general anesthesia was achieved and the patient was placed in dorsal lithotomy position where she was sterilely prepped and draped in standard fashion. I began the case by passing a 22-Uruguayan cystoscope and 30 degree lens. Inspection of the bladder revealed no gross abnormalities. She did not appear to have any tumors or other lesions of the bladder nor does she appeare to be actively infected. There was clear urine without erythema of the bladder wall. Ureteral orifices were in orthotopic position. I turned first to the right ureteral orifice. I cannulated it with a sensor wire and a 5-Uruguayan open ended catheter. Wire was advanced to the kidney without difficulty. Of note, the kidney appears to be modestly ptotic consistent with the preoperative imaging. I performed a retrograde pyelogram at that time after advancing 5-Uruguayan open ended catheter leaving the wire. This confirmed the ptotic kidney and somewhat of a malrotation. I was able to replace the wire into the kidney and then placed a 6-Uruguayan 24-cm double-J ureteral stent seeing a good curl in the kidney as well as the bladder. After confirming stent was placed appropriately, I turned my attention to the left ureteral orifice. I cannulated with a 5-[place]ayan open ended catheter and a sensor wire. This wire advanced to the kidney without difficulty. Of note, the patient has a partial staghorn calculus on the left. This was very readily visible on fluoroscopy. This appeared to be filling the upper pole calices and the wire was advanced above this into the extreme upper pole. I then performed a retrograde pyelogram confirming that this was the upper pole, additionally I noted a somewhat tight UPJ. I replaced the wire back into the upper pole and I placed a 6-Uruguayan 24-cm double-J ureteral stent without difficulty. There was a good curl in the bladder as well as the kidney. I then emptied the bladder completely and concluded the case. I attest to the content of the Intraoperative Record and any orders documented therein. Any exceptio ns are noted below.
[2016-10-10 17:30] VITALS: O2SAT 99
[2016-10-10 21:00] VITALS: BP 130/80; PULSE 98; TEMP 36.9; O2SAT 97
[2016-10-10] MEDS: INSULIN DETEMIR FLEXPEN/FLEX TOUCH 100 UNITS/ML 3ML SC SCH (21:22)
[2016-10-10] MEDS: TRAMADOL HCL 50 MG TAB PO PRN (21:23)
[2016-10-10] MEDS: MULTIVITAMIN TAB PO SCH (21:24)
[2016-10-10] MEDS: ATORVASTATIN 20 MG TAB PO SCH (21:25)
[2016-10-10 23:51] VITALS: BP 137/81; PULSE 101; TEMP 36.9; O2SAT 94
[2016-10-11] VITALS (17 sets, daily range): BP systolic 130–164; BP diastolic 56–88; PULSE 77–103; TEMP 36.4–36.8; O2SAT 96–100
[2016-10-11] MEDS ORDERED: NURSING VERBAL MED ORDER ONE
[2016-10-11] MEDS: METRONIDAZOLE 500 MG TAB PO SCH ×3 (06:21→20:42)
[2016-10-11 07:16] LABS: HEMATOCRIT 22.4 % (37-47); MEAN CELL VOLUME 83.3 fL (80-100); MEAN CORPUSCULAR HEMOGLOBIN 27.5 pg (25-34); RED BLOOD COUNT 2.69 M/uL (4.2-5.4); WHITE BLOOD COUNT 3.56 K/uL (4.8-10.8)
[2016-10-11 07:52] LABS: BUN/CREATININE RATIO 16.2 (10-20); CALCIUM 8.4 mg/dl (8.5-10.1); POTASSIUM 3.6 mmol/L (3.5-5.1)
[2016-10-11] MEDS: METOPROLOL TARTRATE 25 MG TAB PO SCH ×2 (08:23→20:43)
[2016-10-11] MEDS: GABAPENTIN 100 MG CAP PO SCH ×2 (08:24→14:00)
[2016-10-11] MEDS: RANITIDINE HCL 150 MG TAB PO SCH ×2 (08:24→20:36)
[2016-10-11] MEDS: INSULIN ASPART 100 UNITS/ML 3 ML PEN SC SCH ×4 (08:30→20:40)
[2016-10-11] MEDS: INSULIN DETEMIR FLEXPEN/FLEX TOUCH 100 UNITS/ML 3ML SC SCH ×2 (08:31→20:39)
[2016-10-11 08:38] LABS: MEAN PLATELET VOLUME 8.8 fL (7.4-10.4); PLATELET COUNT 92 K/uL (130-400)
[2016-10-11 08:39] LABS: BASO % 0.3 %; BASO ABS # 0.01 K/uL (0-0.2); COMPLETE YES; EOS % 2.2 %; IG% 0.3 %; LYMPH % 11.8 %; LYMPH ABS # 0.42 K/uL (1.2-3.4); MICROCYTOSIS PRESENT; MONO % 7.9 %; NEUT % 77.5 %
[2016-10-11] MEDS ORDERED: CEFTRIAXONE SOD INJ 2000 MG in DEXTROSE 5% 50ML IV SCH (09:45)
[2016-10-11] MEDS ORDERED: FERROUS SULFATE 325 MG TAB PO ONE (10:23)
--- NOTE | 2016-10-11 10:30 | Progress Note ---
Medicine Progress Note Date & Time of Visit: Oct 11, 2016 at 10:25. Subjective patient states she feels fine overall has mild hematuria, no abdominal or flank pain denies fever/chills, dysuria no dyspnea, chest pain, palpitations, dizziness, nausea no other symptoms Objective Last 8 Hrs Date Time Temp Pulse Resp B/P Pulse Ox O2 Delivery O2 Flow Rate FiO2 10/11/16 07:39 36.7 103 20 160/88 100 Room Air Physical Exam: General- oriented x 3, not in distress, speaks in sentences with no effort Eyes- anicteric Neck- no JVD Lungs- clear to auscultation bilaterally, no rales/wheezes Heart- normal rate, regular rhythm; no murmurs Abdomen- normal bowel sounds, soft, nontender, no CVA tenderness Extremities- no pretibial edema, no calf tenderness Neuro- alert, oriented x 3; no gross focal deficits Skin- warm & dry Laboratory Results: Last 24 Hours Test 10/10/16 11:56 10/10/16 15:40 10/10/16 20:02 10/11/16 07:05 Bedside Glucose 192 mg/dl 136 mg/dl 236 mg/dl White Blood Count 3.56 K/uL Red Blood Count 2.69 M/uL Hemoglobin 7.4 g/dL Hematocrit 22.4 % Mean Corpuscular Volume 83.3 fL Mean Corpuscular Hemoglobin 27.5 pg Mean Corpuscular Hemoglobin Concent 33.0 g/dl Platelet Count 92 K/uL Mean Platelet Volume 8.8 fL Neutrophils (%) (Auto) 77.5 % Lymphocytes (%) (Auto) 11.8 % Monocytes (%) (Auto) 7.9 % Eosinophils (%) (Auto) 2.2 % Basophils (%) (Auto) 0.3 % Neutrophils # (Auto) 2.76 K/uL Lymphocytes # (Auto) 0.42 K/uL Monocytes # (Auto) 0.28 K/uL Eosinophils # (Auto) 0.08 K/uL Basophils # (Auto) 0.01 K/uL RDW Standard Deviation 52.7 fL RDW Coefficient of Variation 17.2 % Immature Granulocyte % (Auto) 0.3 % Immature Granulocyte # (Auto) 0.01 K/uL Microcytosis PRESENT Sodium Level 140 mmol/L Potassium Level 3.6 mmol/L Chloride Level 108 mmol/L Carbon Dioxide Level 26 mmol/L Anion Gap 6.0 mmol/L Blood Urea Nitrogen 16 mg/dl Creatinine 1.00 mg/dl Est Creatinine Clear Calc Drug Dose 64.0 ml/min Estimated GFR () 68.0 Estimated GFR (Non- 58.7 BUN/Creatinine Ratio 16.2 Random Glucose 170 mg/dl Calcium Level 8.4 mg/dl Test 10/11/16 08:06 Bedside Glucose 186 mg/dl Assessment & Plan 66 year old female with history of DM, HTN, CKD 3, BOWDEN, Possible Sarcoidosis presenting with altered mental status ALTERED MENTAL STATUS LIKELY METABOLIC ENCEPHALOPATHY , RESOLVED, SECONDARY TO SEPSIS FROM UTI, C DIFF COLITIS - urine cultures: E coli pansensitive blood cultures: 07/28 E coli pansensitive C diff (+) -remains afebrile, overall improving diarrhea resolved - received Cefepime x 3 days, change to Ceftriaxone Flagyl Day 4 ID consulted RIGHT HYDRONEPHROSIS, WITH ACUTE RENAL FAILURE ON CKD 3 BILATERAL NEPHROLITHIASIS - crea increased to 2.0, now back to baseline CT abdomen: - 1. Moderate right hydronephrosis. No ureteral calculi. Differential considerations include a recently passed calculus or infectious process. An occult urothelial lesion could appear similar although is considered less likely. 2. Gas within the left renal collecting system and bladder. This could be due to recent instrumentation. In the absence of recent instrumentation, the findings suggest a gas-forming infectious process. Correlation with urinalysis and history of recent instrumentation is recommended. 3. Bilateral nephrolithiasis, including a left staghorn calculus. 4. Cholelithiasis. - s/p Bilateral Ureteral Stent Placement 10/10/[address] Chin will need definitive treatment of Nephrolithiasis, possible suppressive antibiotic while awaiting procedure d/c IV fluids Urology consulted, appreciate the recommendations Iron Deficiency Anemia Hg 7.4 no signs of active bleeding 2 units PRBC ordered on FeSO4 will need outpatient work up DM 2 on Lantus ISS Pharm consulted HTN stable BOWDEN outpatient management POSSIBLE SARCOIDOSIS CT abdomen: - Hepatosplenomegaly with innumerable hypodense lesions within the liver and spleen, as shown on prior CT. Overall, the imaging findings raise the possibility of sarcoidosis although metastatic disease remains within the differential. - Possible cirrhosis with a recannulized paraumbilical vein which could indicate portal hypertension. -- continue outpatient management DVT prophylaxis SCDs for now just had ureteral stent placement encouraged to ambulate Disposition pending anticipate d/c home tomorrow Current Inpatient Medications: Current Inpatient Medications Medications (Trade) Dose Ordered Sig/Lea Route Start Time Stop Time Status Last Admin Dose Admin Acetaminophen (Tylenol Tab) 325 mg Q6H PRN PO 10/08/16 20:30 11/07/16 20:29 10/09/16 20:06 325 MG Glucose (Glucose 40% Gel) 15-30 GRAMS 15 GRAMS... UD PRN PO 10/08/16 20:30 11/07/16 20:29 Glucose (Glucose Chew Tab) 4-8 Tablets 4 Tabl... UD PRN PO 10/08/16 20:30 11/07/16 20:29 Dextrose (Dextrose 50% 50ML Syringe) 25-50ML OF 50% DW IV FOR... UD PRN IV 10/08/16 20:30 11/07/16 20:29 Glucagon (Glucagon Inj) 1 mg UD PRN SQ 10/08/16 20:30 11/07/16 20:29 Hydromorphone HCl (Dilaudid Inj) 0.5 mg Q3H PRN IV 10/08/16 20:30 10/22/16 20:29 Tramadol HCl (Ultram Tab) 25 mg Q6H PRN PO 10/08/16 20:30 11/07/16 20:29 10/10/16 21:23 25 MG Ondansetron HCl (Zofran Inj) 4 mg Q6H PRN IV 10/08/16 20:30 11/07/16 20:29 Atorvastatin Calcium (Lipitor Tab) 20 mg HS PO 10/08/16 21:00 11/07/16 20:59 10/10/16 21:25 20 MG Gabapentin (Neurontin Cap) 200 mg TID PO 10/08/16 21:00 11/07/16 20:59 10/11/16 08:24 200 MG Metoprolol Tartrate (Lopressor Tab) 12.5 mg BID PO 10/09/16 08:00 11/08/16 08:59 10/11/16 08:23 12.5 MG Multivitamins (Multivitamin Tab) 1 tab HS PO 10/08/16 21:00 11/07/16 20:59 10/10/16 21:24 1 TAB Ranitidine HCl (zANTac TAB) 75 mg BID PO 10/08/16 21:00 11/07/16 20:59 10/11/16 08:24 75 MG Metronidazole (Flagyl Tab) 500 mg Q8 PO 10/09/16 04:00 10/19/16 03:59 10/11/16 06:21 500 MG Miscellaneous Information (Consult Glycemic Management Pharmacy) 1 ea UD PRN N/A 10/09/16 09:57 11/08/16 09:56 Insulin Detemir (Levemir Flexpen/ FlexTouch) 15 unit BID SC 10/09/16 20:00 11/08/16 19:59 Future hold 10/11/16 08:31 15 UNIT Insulin Aspart SLIDING SCALE If C... ACHS SC 10/11/16 06:30 11/10/16 06:29 10/11/16 08:30 7 UNITS Ceftriaxone Sodium/Dextrose (Rocephin Inj/D5 50ml) 70 ml @ 140 mls/hr DAILY@1100 IV 10/11/16 11:00 10/17/16 11:29
[2016-10-11] MEDS: CEFTRIAXONE SOD INJ 2000 MG in DEXTROSE 5% 50ML IV SCH (10:31)
--- NOTE | 2016-10-11 11:12 | Progress Note ---
Progress Note Date of Service Oct 11, 2016. Progress Note S: Doing very well - slight irritation at the end of urination, but otherwise tolerating her ureteral stents very well - no flank pain - afebrile overnight O: 10/11/16 07:05 Red Blood Count 2.69, Mean Corpuscular Volume 83.3, Mean Corpuscular Hemoglobin 27.5, Mean Corpuscular Hemoglobin Concent 33.0, Mean Platelet Volume 8.8, Neutrophils (%) (Auto) 77.5, Lymphocytes (%) (Auto) 11.8, Monocytes (%) (Auto) 7.9, Eosinophils (%) (Auto) 2.2, Basophils (%) (Auto) 0.3, Neutrophils # (Auto) 2.76, Lymphocytes # (Auto) 0.42, Monocytes # (Auto) 0.28, Eosinophils # (Auto) 0.08, Basophils # (Auto) 0.01 10/11/16 07:05 Test 10/11/16 07:05 10/11/16 08:06 White Blood Count 3.56 K/uL (4.8-10.8) Red Blood Count 2.69 M/uL (4.2-5.4) Hemoglobin 7.4 g/dL (12.0-16.0) Hematocrit 22.4 % (37-47) Mean Corpuscular Volume 83.3 fL (80-100) Mean Corpuscular Hemoglobin 27.5 pg (25-34) Mean Corpuscular Hemoglobin Concent 33.0 g/dl (32-36) Platelet Count 92 K/uL (130-400) Mean Platelet Volume 8.8 fL (7.4-10.4) Neutrophils (%) (Auto) 77.5 % Lymphocytes (%) (Auto) 11.8 % Monocytes (%) (Auto) 7.9 % Eosinophils (%) (Auto) 2.2 % Basophils (%) (Auto) 0.3 % Neutrophils # (Auto) 2.76 K/uL (1.4-6.5) Lymphocytes # (Auto) 0.42 K/uL (1.2-3.4) Monocytes # (Auto) 0.28 K/uL (0.11-0.59) Eosinophils # (Auto) 0.08 K/uL (0-0.5) Basophils # (Auto) 0.01 K/uL (0-0.2) RDW Standard Deviation 52.7 fL (36.4-46.3) RDW Coefficient of Variation 17.2 % (11.5-14.5) Immature Granulocyte % (Auto) 0.3 % Immature Granulocyte # (Auto) 0.01 K/uL (0.00-0.02) Microcytosis PRESENT Anion Gap 6.0 mmol/L (3-11) Est Creatinine Clear Calc Drug Dose 64.0 ml/min Estimated GFR () 68.0 Estimated GFR (Non- 58.7 BUN/Creatinine Ratio 16.2 (10-20) Calcium Level 8.4 mg/dl (8.5-10.1) Bedside Glucose 186 mg/dl (70-90) Vital Signs Past 12 Hours Date Time Temp Pulse Resp B/P Pulse Ox O2 Delivery O2 Flow Rate FiO2 10/11/16 07:39 36.7 103 20 160/88 100 Room Air 10/11/16 00:00 99 Room Air 10/10/16 23:51 36.9 101 20 137/81 94 Room Air NAD abd soft, NT, ND no edema no resp distress A/P: R hydro w/ ptotic kidney; 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
[2016-10-11] MEDS: GABAPENTIN 800 MG TAB PO SCH (15:02)
[2016-10-11] MEDS: MULTIVITAMIN TAB PO SCH (20:41)
[2016-10-11] MEDS: ATORVASTATIN 20 MG TAB PO SCH (20:41)
[2016-10-11] MEDS: TRAMADOL HCL 50 MG TAB PO PRN (22:39)
[2016-10-12] VITALS: O2SAT 96
[2016-10-12] MEDS: METRONIDAZOLE 500 MG TAB PO SCH ×2 (06:20→12:44)
[2016-10-12 06:41] LABS: BASO % 0.3 %; BASO ABS # 0.01 K/uL (0-0.2); COMPLETE YES; EOS % 3.3 %; HEMATOCRIT 29.3 % (37-47); IG% 0.3 %; LYMPH ABS # 0.54 K/uL (1.2-3.4); MEAN CELL VOLUME 84.9 fL (80-100); MEAN CORPUSCULAR HEMOGLOBIN 27.8 pg (25-34); MEAN CORPUSCULAR HGB CONC 32.8 g/dl (32-36); MONO % 9.4 %; NEUT % 71.7 %; PLATELET COUNT 107 K/uL (130-400); RED BLOOD COUNT 3.45 M/uL (4.2-5.4)
[2016-10-12 07:01] VITALS: BP 147/81; PULSE 80; TEMP 36.4; O2SAT 99
[2016-10-12 07:13] LABS: BUN/CREATININE RATIO 16.5 (10-20); CALCIUM 8.9 mg/dl (8.5-10.1); CREATININE 1.1 mg/dl (0.60-1.20); POTASSIUM 3.8 mmol/L (3.5-5.1)
[2016-10-12 08:00] VITALS: O2SAT 99
[2016-10-12] MEDS ORDERED: FERROUS SULFATE 325 MG TAB PO SCH (08:00)
[2016-10-12] MEDS ORDERED: INSULIN DETEMIR FLEXPEN/FLEX TOUCH 100 UNITS/ML 3ML SC SCH (08:00)
[2016-10-12] MEDS: INSULIN ASPART 100 UNITS/ML 3 ML PEN SC SCH ×2 (09:03→14:02)
[2016-10-12] MEDS: GABAPENTIN 800 MG TAB PO SCH ×2 (09:06→12:44)
[2016-10-12] MEDS: METOPROLOL TARTRATE 25 MG TAB PO SCH (09:08)
[2016-10-12] MEDS: RANITIDINE HCL 150 MG TAB PO SCH (09:08)
--- NOTE | 2016-10-12 09:18 | Progress Note ---
Progress Note Date of Service Oct 12, 2016. Progress Note S: Doing very well - transfused yesterday - anxious to go home - no stent discomfort O: Vital Signs Past 12 Hours Date Time Temp Pulse Resp B/P Pulse Ox O2 Delivery O2 Flow Rate FiO2 10/12/16 07:01 36.4 80 18 147/81 99 Room Air 10/12/16 00:00 96 Room Air 10/11/16 23:59 36.8 78 18 135/83 98 Room Air 10/12/16 06:05 Red Blood Count 3.45, Mean Corpuscular Volume 84.9, Mean Corpuscular Hemoglobin 27.8, Mean Corpuscular Hemoglobin Concent 32.8, Mean Platelet Volume 10.0, Neutrophils (%) (Auto) 71.7, Lymphocytes (%) (Auto) 15.0, Monocytes (%) (Auto) 9.4, Eosinophils (%) (Auto) 3.3, Basophils (%) (Auto) 0.3, Neutrophils # (Auto) 2.58, Lymphocytes # (Auto) 0.54, Monocytes # (Auto) 0.34, Eosinophils # (Auto) 0.12, Basophils # (Auto) 0.01 10/12/16 06:05 Test 10/12/16 06:05 10/12/16 08:02 White Blood Count 3.60 K/uL (4.8-10.8) Red Blood Count 3.45 M/uL (4.2-5.4) Hemoglobin 9.6 g/dL (12.0-16.0) Hematocrit 29.3 % (37-47) Mean Corpuscular Volume 84.9 fL (80-100) Mean Corpuscular Hemoglobin 27.8 pg (25-34) Mean Corpuscular Hemoglobin Concent 32.8 g/dl (32-36) Platelet Count 107 K/uL (130-400) Mean Platelet Volume 10.0 fL (7.4-10.4) Neutrophils (%) (Auto) 71.7 % Lymphocytes (%) (Auto) 15.0 % Monocytes (%) (Auto) 9.4 % Eosinophils (%) (Auto) 3.3 % Basophils (%) (Auto) 0.3 % Neutrophils # (Auto) 2.58 K/uL (1.4-6.5) Lymphocytes # (Auto) 0.54 K/uL (1.2-3.4) Monocytes # (Auto) 0.34 K/uL (0.11-0.59) Eosinophils # (Auto) 0.12 K/uL (0-0.5) Basophils # (Auto) 0.01 K/uL (0-0.2) RDW Standard Deviation 51.7 fL (36.4-46.3) RDW Coefficient of Variation 16.5 % (11.5-14.5) Immature Granulocyte % (Auto) 0.3 % Immature Granulocyte # (Auto) 0.01 K/uL (0.00-0.02) Anion Gap 9.0 mmol/L (3-11) Est Creatinine Clear Calc Drug Dose 58.2 ml/min Estimated GFR () 60.6 Estimated GFR (Non- 52.3 BUN/Creatinine Ratio 16.5 (10-20) Calcium Level 8.9 mg/dl (8.5-10.1) Bedside Glucose 213 mg/dl (70-90) NAD AAOx3 no resp distress RRR abd soft A/P: [place]; empysematous pyelitis; partial staghorn calc s/p B/l stent placement - ok for d/c home from standpoint - cont abx for 14 d total - we will arrange for out pt f/u
--- NOTE | 2016-10-12 09:57 | Progress Note ---
Progress Note Date of Service Oct 12, 2016. Progress Note ID consult dictated #[id number] A/P: 1. E. coli septicemia secondary to gu source/staghorn calculus s/p b/l stent placement 2. C. diff colitis 3. Leukocytosis - resolved 4. Fever -resolved -Can transition to po keflex upon d/c 500mg tid for 21 days -Continue po patel, would continue for additional 7 days after completion of systemic abx -Would repeat blood cultures to document clearance -For lithotripsy and stent removal as outpt, would schedule while on abx -No contraindication for d/c from ID standpoint
[2016-10-12] MEDS: CEFTRIAXONE SOD INJ 2000 MG in DEXTROSE 5% 50ML IV SCH (11:39)
--- NOTE | 2016-10-12 12:11 | INFECT. DISEASE CONSULTATION ---
DATE OF CONSULTATION: 10/12/2016 REQUESTING PHYSICIAN: Myles Trujillo MD HISTORY OF PRESENT ILLNESS: This is a 66-year-old female who was admitted after she had a sudden onset of right flank pain and incontinence. She also had reported diarrhea. In the Emergency Room, she was started on empiric antibiotics consisting of daptomycin and Zosyn for possible sepsis. Blood cultures were drawn on the and grew pansensitive E. coli in 1 out of 2 sets. No repeat blood cultures have been obtained. A urine culture on the also grew pansensitive E. coli. She was changed to cefepime and then ceftriaxone when final cultures were available. Because of her diarrhea, C. diff was obtained on the and this was positive as well. She has been on Flagyl for this and is tolerating it well. She did initially have a fever as high as 40 degrees Celsius on the . She has been afebrile since the . She was followed by urology after she had an abnormal CAT scan of abdomen and pelvis on the showing moderate right hydronephrosis with no calculi, gas within the left renal collecting system and bladder, nephrolithiasis with a left staghorn calculus. She did undergo stent placement bilaterally on the and has tolerated this well. She has been followed by urology. She did have a leukocytosis as high as 13,000 on the , but this has improved and now is normal. She currently is afebrile. She denies any diarrhea or abdominal pain. She denies any incontinence or urinary symptoms. She has no chest pain, cough, shortness of breath, nausea or vomiting. She is eating well. She is tolerating her antibiotics without difficulty. She is tentatively scheduled for discharge to home today with followup as an outpatient with urology to have lithotripsy and stent removal. This has not been scheduled as of yet. She is anxious to be discharged to home on oral antibiotics. Infectious diseases was consulted for discharge planning with regard to antibiotic therapy. All remaining review of systems are reviewed and are negative except for as noted above. PAST MEDICAL HISTORY: Significant for hypertension, type 2 diabetes, anemia, cirrhosis. PAST SURGICAL HISTORY: Includes and now bilateral ureteral stent placement on 10/10/2016. FAMILY HISTORY: Noncontributory. SOCIAL HISTORY: Significant for history of tobacco use. She denies any alcohol or drug use. ALLERGIES: PERCOCET AND TETRACYCLINE. CURRENT MEDICATIONS: Include iron, Levemir, gabapentin, ceftriaxone, insulin, Lopressor, oral Flagyl, Lipitor, multivitamins, Zantac, Tylenol, Dilaudid, Ultram and Zofran. PHYSICAL EXAMINATION: VITAL SIGNS: She is afebrile in the last 24 hours, pulse 80, respiratory rate 18, blood pressure 147/81, oxygen saturation is 99% on room air. GENERAL: She is awake, alert and oriented x3. She is in no acute distress. HEENT: Mucous membranes are moist. Extraocular muscles are intact. HEART: Regular. LUNGS: Clear bilaterally. ABDOMEN: Soft, nontender and nondistended. EXTREMITIES: There is no lower extremity edema bilaterally. SKIN: Without rash. LABORATORY STUDIES: CBC today reveals a white blood cell count of 3.6, hemoglobin is 9.6, platelets are 107. Chemistry panel reveals a sodium of 140, potassium 3.8, chloride 105, bicarbonate 26, BUN 18, creatinine 1.1, glucose is 213. LFTs on admission were within normal limits. A urinalysis had large leukocyte esterase, greater than 30 WBCs and 1+ bacteria. Blood cultures on the 15th in 1 out of 2 sets are growing pansensitive E. coli. Urine cultures on the 15th and 16th are growing pansensitive E. coli. C. diff on the 16th was positive. Imaging is as above. ASSESSMENT AND PLAN: 1. Escherichia coli septicemia, likely secondary to urinary source with left staghorn calculus, status post bilateral stent placement. 2. Fever, resolved. 3. Leukocytosis, resolved. She is anxious to go home on oral antibiotics today. She will be transitioned to oral Keflex for a 21-day course. She will also continue on her Flagyl for previous positive Clostridium difficile testing, this will be extended for an additional 7 days. It is recommended that she have any urologic procedures performed while she remains on antibiotics. I do not see any contraindication for discharge from an infectious diseases standpoint.
--- NOTE | 2016-10-12 12:27 | Pharmacy Progress Note ---
Glycemic Control: Progress Nt Date of Service Oct 12, 2016. Scope Glycemic Pharmacist consulted for glycemic control and to write orders per [facility] inpatient glycemic control protocol. Objective Accuchecks BSG (last 24hrs): Test 10/11/16 15:53 10/11/16 20:06 10/12/16 06:05 10/12/16 08:02 Bedside Glucose 239 mg/dl (70-90) 190 mg/dl (70-90) 213 mg/dl (70-90) Random Glucose 188 mg/dl (70-99) Test 10/12/16 11:48 Bedside Glucose 224 mg/dl (70-90) Laboratory Data (last 24hrs) Test 10/12/16 06:05 Anion Gap 9.0 mmol/L BUN/Creatinine Ratio 16.5 Blood Urea Nitrogen 18 mg/dl Creatinine 1.10 mg/dl Potassium Level 3.8 mmol/L Sodium Level 140 mmol/L White Blood Count 3.60 K/uL Red Blood Count 3.45 M/uL Hemoglobin 9.6 g/dL Hematocrit 29.3 % Mean Corpuscular Volume 84.9 fL Mean Corpuscular Hemoglobin 27.8 pg Mean Corpuscular Hemoglobin Concent 32.8 g/dl Platelet Count 107 K/uL Mean Platelet Volume 10.0 fL Neutrophils (%) (Auto) 71.7 % Lymphocytes (%) (Auto) 15.0 % Monocytes (%) (Auto) 9.4 % Eosinophils (%) (Auto) 3.3 % Basophils (%) (Auto) 0.3 % Neutrophils # (Auto) 2.58 K/uL Lymphocytes # (Auto) 0.54 K/uL Monocytes # (Auto) 0.34 K/uL Eosinophils # (Auto) 0.12 K/uL Basophils # (Auto) 0.01 K/uL HbA1c: Test 10/10/16 07:40 Hemoglobin A1c 7.0 % (4.5-5.6) H Recent Pertinent Medications The patient is currently receiving: * Basal insulin: Levemir 15 units every 12 hours * Correctional Insulin: Novolog Correction per scale ACHS Goal Range: Low 110 mg/dL - High 140 mg/dL Correction Factor: 20 mg/dL/unit * Prandial insulin: Per carb ratio of 1 unit per 7 grams CHO consumed * Oral Agents: On hold for admission Risk Factors for Insulin Resistance: * Infection * Recent Surgery * Diet Assessment & Plan ASSESSMENT: * 66yo T2DM female with adequate outpatient glycemic control per recent A1c of 7 % today. Seems reasonable for patient to resume outpatient regimen at discharge * Pt is currently receiving SQ basal bolus insulin regimen while admitted and oral agents on hold. Basal insulin has been split BID to prevent hypo when PO intake changes * Pt is currently receiving 50-60 units of insulin per day with sub-optimal control * BSGs ranging 186-239mg/dl over the past 24hrs, suspect BSGs slightly elevated 10/11 d/t decreased basal insulin dosing 10/10 for NPO. Regardless, both fasting and post-prandial BSGs are elevated; will increase regimen accordingly. Increase basal insulin and tighten bolus insulin. * ADA & AACE recommend a goal blood sugar range 140-180 mg/dl for the majority of critically ill & non-critically ill patients. However, more stringent targets may be selected in individual cases. Will utilize more stringent goal range of 110-140mg/dl based on age and tight glycemic control at baseline. Additionally, tight glycemic control warranted to facilitate infection healing. PLAN FOR INPATIENT GLYCEMIC CONTROL: * Holding outpatient oral diabetes medications * Increase basal insulin with Lantus to 18 units SQ BID * NOVOLOG per scale ACHS or Q6hrs while NPO * Goal Range: Low 110 mg/dL - High 140 mg/dL * Correction Factor: 20 mg/dL/unit * Nutritional / Prandial insulin per carb ratio of 1 unit per 6 grams CHO consumed * Please note that the plan above was derived based on current level of insulin resistance and hospital stress. These recommendations are appropriate for inpatient admission only. Plan of care upon discharge will need to be reassessed to avoid potential outpatient hypo/hyperglycemia. Thank you.
[2016-10-12 15:22] VITALS: BP 121/75; PULSE 76; TEMP 36.5; O2SAT 98
--- NOTE | 2016-10-12 15:58 | Progress Note ---
Medicine Progress Note Date & Time of Visit: Oct 12, 2016 at 15:44. Subjective patient states she feels better overall denies fever/chills no chest pain, dyspnea, dizziness, palpitations no abdominal pain, hematuria, diarrhea states she feels better would like to be discharged today Objective Last 8 Hrs Date Time Temp Pulse Resp B/P Pulse Ox O2 Delivery O2 Flow Rate FiO2 10/12/16 15:22 36.5 76 16 121/75 98 Room Air 10/12/16 08:00 99 Room Air Physical Exam: General- oriented x 3, not in distress, speaks in sentences with no effort Lungs- clear to auscultation bilaterally, no rales/wheezes Heart- normal rate, regular rhythm; no murmurs Abdomen- normal bowel sounds, soft, nontender, no CVA tenderness Extremities- no pretibial edema, no calf tenderness Neuro- alert, oriented x 3; no gross focal deficits Skin- warm & dry Laboratory Results: Last 24 Hours Test 10/11/16 15:53 10/11/16 20:06 10/12/16 06:05 10/12/16 08:02 Bedside Glucose 239 mg/dl 190 mg/dl 213 mg/dl White Blood Count 3.60 K/uL Red Blood Count 3.45 M/uL Hemoglobin 9.6 g/dL Hematocrit 29.3 % Mean Corpuscular Volume 84.9 fL Mean Corpuscular Hemoglobin 27.8 pg Mean Corpuscular Hemoglobin Concent 32.8 g/dl Platelet Count 107 K/uL Mean Platelet Volume 10.0 fL Neutrophils (%) (Auto) 71.7 % Lymphocytes (%) (Auto) 15.0 % Monocytes (%) (Auto) 9.4 % Eosinophils (%) (Auto) 3.3 % Basophils (%) (Auto) 0.3 % Neutrophils # (Auto) 2.58 K/uL Lymphocytes # (Auto) 0.54 K/uL Monocytes # (Auto) 0.34 K/uL Eosinophils # (Auto) 0.12 K/uL Basophils # (Auto) 0.01 K/uL RDW Standard Deviation 51.7 fL RDW Coefficient of Variation 16.5 % Immature Granulocyte % (Auto) 0.3 % Immature Granulocyte # (Auto) 0.01 K/uL Sodium Level 140 mmol/L Potassium Level 3.8 mmol/L Chloride Level 105 mmol/L Carbon Dioxide Level 26 mmol/L Anion Gap 9.0 mmol/L Blood Urea Nitrogen 18 mg/dl Creatinine 1.10 mg/dl Est Creatinine Clear Calc Drug Dose 58.2 ml/min Estimated GFR () 60.6 Estimated GFR (Non- 52.3 BUN/Creatinine Ratio 16.5 Random Glucose 188 mg/dl Calcium Level 8.9 mg/dl Test 10/12/16 11:48 Bedside Glucose 224 mg/dl Assessment & Plan 66 year old female with history of DM, HTN, CKD 3, BOWDEN, Possible Sarcoidosis presenting with altered mental status ALTERED MENTAL STATUS LIKELY METABOLIC ENCEPHALOPATHY , RESOLVED, SECONDARY TO SEPSIS FROM UTI, E COLI AND C DIFF COLITIS - urine cultures: E coli pansensitive blood cultures: 1/2 E coli pansensitive C diff stool Ag Positive - remained afebrile, overall improved diarrhea resolved - received Cefepime x 3 days, change to Ceftriaxone x 2 days Flagyl x 5 days - ID consulted, recommending: Cephalexin 500mg TID x 21 days repeat blood cultures after completion of Cephalexin Flagyl 500mg TID to continue 7 days after completion of antibiotics schedule urologic procedures while on antibiotics RIGHT HYDRONEPHROSIS, WITH ACUTE RENAL FAILURE ON CKD 3 BILATERAL NEPHROLITHIASIS - crea increased to 2.0, now back to baseline CT abdomen: - 1. Moderate right hydronephrosis. No ureteral calculi. Differential considerations include a recently passed calculus or infectious process. An occult urothelial lesion could appear similar although is considered less likely. 2. Gas within the left renal collecting system and bladder. This could be due to recent instrumentation. In the absence of recent instrumentation, the findings suggest a gas-forming infectious process. Correlation with urinalysis and history of recent instrumentation is recommended. 3. Bilateral nephrolithiasis, including a left staghorn calculus. 4. Cholelithiasis. - s/p Bilateral Ureteral Stent Placement 10/10/[address] Chin- Urology will need definitive treatment of Nephrolithiasis, schedule urologic procedures while on antibiotics as per ID outpatient ff up with Urologist Iron Deficiency Anemia Hg 7.4 no signs of active bleeding 2 units PRBC ordered, Hg improved to 9.6 on FeSO4 will need outpatient work up monitor DM 2 on Lantus ISS HTN stable BOWDEN outpatient management POSSIBLE SARCOIDOSIS CT abdomen: - Hepatosplenomegaly with innumerable hypodense lesions within the liver and spleen, as shown on prior CT. Overall, the imaging findings raise the possibility of sarcoidosis although metastatic disease remains within the differential. - Possible cirrhosis with a recannulized paraumbilical vein which could indicate portal hypertension. -- continue outpatient management DVT prophylaxis SCDs for now just had ureteral stent placement encouraged to ambulate Disposition pending d/c home today ff up with PCP in 3-5 days ff up with Urologist as scheduled Current Inpatient Medications: Current Inpatient Medications Medications (Trade) Dose Ordered Sig/Lea Route Start Time Stop Time Status Last Admin Dose Admin Acetaminophen (Tylenol Tab) 325 mg Q6H PRN PO 10/08/16 20:30 11/07/16 20:29 10/09/16 20:06 325 MG Glucose (Glucose 40% Gel) 15-30 GRAMS 15 GRAMS... UD PRN PO 10/08/16 20:30 11/07/16 20:29 Glucose (Glucose Chew Tab) 4-8 Tablets 4 Tabl... UD PRN PO 10/08/16 20:30 11/07/16 20:29 Dextrose (Dextrose 50% 50ML Syringe) 25-50ML OF 50% DW IV FOR... UD PRN IV 10/08/16 20:30 11/07/16 20:29 Glucagon (Glucagon Inj) 1 mg UD PRN SQ 10/08/16 20:30 11/07/16 20:29 Hydromorphone HCl (Dilaudid Inj) 0.5 mg Q3H PRN IV 10/08/16 20:30 10/22/16 20:29 Tramadol HCl (Ultram Tab) 25 mg Q6H PRN PO 10/08/16 20:30 11/07/16 20:29 10/11/16 22:39 25 MG Ondansetron HCl (Zofran Inj) 4 mg Q6H PRN IV 10/08/16 20:30 11/07/16 20:29 Atorvastatin Calcium (Lipitor Tab) 20 mg HS PO 10/08/16 21:00 11/07/16 20:59 10/11/16 20:41 20 MG Metoprolol Tartrate (Lopressor Tab) 12.5 mg BID PO 10/09/16 08:00 11/08/16 08:59 10/12/16 09:08 12.5 MG Multivitamins (Multivitamin Tab) 1 tab HS PO 10/08/16 21:00 11/07/16 20:59 10/11/16 20:41 1 TAB Ranitidine HCl (zANTac TAB) 75 mg BID PO 10/08/16 21:00 11/07/16 20:59 10/12/16 09:08 75 MG Metronidazole (Flagyl Tab) 500 mg Q8 PO 10/09/16 04:00 10/19/16 03:59 10/12/16 12:44 500 MG Miscellaneous Information (Consult Glycemic Management Pharmacy) 1 ea UD PRN N/A 10/09/16 09:57 11/08/16 09:56 Insulin Aspart SLIDING SCALE If C... ACHS SC 10/11/16 06:30 11/10/16 06:29 10/12/16 14:02 14 UNITS Ceftriaxone Sodium/Dextrose (Rocephin Inj/D5 50ml) 70 ml @ 140 mls/hr DAILY@1100 IV 10/11/16 11:00 10/17/16 11:29 10/12/16 11:39 140 MLS/HR Ferrous Sulfate (Feosol Tab) 325 mg QAM PO 10/12/16 08:00 11/11/16 07:59 10/12/16 09:08 325 MG Gabapentin (Neurontin Tab) 800 mg QID PO 10/11/16 20:00 11/10/16 19:59 10/12/16 12:44 800 MG Insulin Detemir (Levemir Flexpen/ FlexTouch) 18 unit BID SC 10/12/16 08:00 11/11/16 07:59 10/12/16 09:04 18 UNIT
[2016-10-12] MEDS ORDERED: KFL500 PO (16:02)
[2016-10-12] MEDS ORDERED: MTR500 PO (16:02)
[2016-10-12] MEDS ORDERED: FRRS300 PO (16:02)
--- NOTE | 2016-10-12 16:08 | Discharge Instructions ---
Discharge Instructions Date of Service Oct 12, 2016. Admission Reason for Admission: Complicated Uti Discharge Discharge Diagnosis / Problem: KIDNEY STONES, URINARY TRACT AND BLOODSTREAM INFECTION Discharge Goals Goal(s): Diagnostic testing, Therapeutic intervention Activity Recommendations Activity Limitations: as noted below (NO HEAVY EXERTION UNTIL RE-EVALUATED BY PRIMARY CARE PHYSICIAN) . Instructions / Follow-Up Instructions / Follow-Up PLEASE REVIEW NEW MEDICATION LIST AND FOLLOW INSTRUCTIONS CAREFULLY. CALL PRIMARY CARE PHYSICIAN OR RETURN TO ER IF WITH RECURRENCE OF SYMPTOMS, FEVER/CHILLS, WEAKNESS, ABDOMINAL PAIN, BLOOD IN THE URINE. ENSURE ADEQUATE DAILY FLUID INTAKE. FOLLOW UP WITH DR. DAVE IN 3-5 DAYS (CLINIC WILL CALL PATIENT WITH APPOINTMENT ). FOLLOW UP WITH UROLOGIST DR. BUTLER SCHEDULED. TEL NO. Current Hospital Diet Patient's current hospital diet: Diabetes Type 2 Diet, Low Lactose Diet Discharge Diet Recommended Diet: AHA Diet (Heart Healthy), Diabetes Type 2 Diet Procedures Procedures Performed: cystoscopy, b/l retrograde pyelogram, b/l ureteral stent placement ([id number]); 2 units pRBC transfusion Pending Studies Studies pending at discharge: yes List of pending studies: repeat CBC and Blood Cultures c/o Dr. Dave; Stent Removal c/o Dr. Butler Laboratory Results Hemoglobin A1c Test 10/10/16 07:40 Range/Units Estimated Average Glucose 154 mg/dl Hemoglobin A1c 7.0 H 4.5-5.6 % Medical Emergencies . Who to Call and When: Medical Emergencies: If at any time you feel your situation is an emergency, please call 911 immediately. . Non-Emergent Contact Non-Emergency issues call your: Primary Care Provider, Urologist Call Non-Emergent contact if: you have a fever, your pain is not controlled, you have any medication questions . Past History Medical & Surgical History: (1) Diabetes (2) Sepsis (3) Hypertension (4) Complicated UTI (urinary tract infection) (5) Sepsis . "Provider Documentation" section prepared by Myles Trujillo. VTE Core Measure Inpt VTE Proph given/why not?: SCD's
[2016-10-12 16:12] VITALS: BP 121/75; PULSE 76; TEMP 36.5; O2SAT 98
--- NOTE | 2016-10-12 16:12 | Discharge Summary ---
Discharge Summary Date of Service Oct 12, 2016. Discharge Summary Admission Date: Oct 08, 2016 at 20:17 Discharge Date: Oct 12, 2016 Discharge Disposition: Home Principal Diagnosis: ALTERED MENTAL STATUS LIKELY METABOLIC ENCEPHALOPATHY , RESOLVED, SECONDARY TO SEPSIS FROM E COLI BACTEREMIA AND UTI; AND C DIFF COLITIS Secondary Diagnoses/Problems: PLEASE REFER TO HOSPITAL COURSE BELOW. Procedures: 10/10/16: cystoscopy, b/l retrograde pyelogram, b/l ureteral stent placement ( [id number]) 10/11/16: S/P [address] OF THE ABDOMEN AND PELVIS WITHOUT CONTRAST, STONE PROTOCOL CLINICAL HISTORY: Right flank pain. COMPARISON STUDY: PET/CT June 18, [address] of the abdomen and pelvis May 13, 2016 and renal ultrasound August 01, 2016. TECHNIQUE: Helical axial images of the abdomen and pelvis were obtained without IV or oral contrast according to renal stone protocol. FINDINGS: Moderate right hydronephrosis has increased since prior exam. No ureteral calculi are present. There is moderate right perinephric and periureteral infiltration. A 7 mm right renal calculus is noted. There are left renal calculi, including a staghorn calculus within the left collecting system. There is gas within the left collecting system as well as gas within the bladder. There is no left-sided collecting system dilatation. Hepatosplenomegaly is again noted with innumerable hypodense lesions within the liver and spleen which are likely similar to CT of September 11, 2016 when allowing for differences in technique. Gallstones within the gallbladder noted. There is no evidence for a bowel obstruction. No suspicious osseous lesions are present. There are scattered colonic diverticula without evidence for acute diverticulitis. There is a suspected recanalized para umbilical vein. Nodularity liver surface may indicate cirrhosis. Small retroperitoneal lymph nodes are again noted. IMPRESSION: 1. Moderate right hydronephrosis. No ureteral calculi. Differential considerations include a recently passed calculus or infectious process. An occult urothelial lesion could appear similar although is considered less likely. 2. Gas within the left renal collecting system and bladder. This could be due to recent instrumentation. In the absence of recent instrumentation, the findings suggest a gas-forming infectious process. Correlation with urinalysis and history of recent instrumentation is recommended. 3. Bilateral nephrolithiasis, including a left staghorn calculus. 4. Cholelithiasis. 5. Hepatosplenomegaly with innumerable hypodense lesions within the liver and spleen, as shown on prior CT. Overall, the imaging findings raise the possibility of sarcoidosis although metastatic disease remains within the differential. 6. Possible cirrhosis with a recannulized paraumbilical vein which could indicate portal hypertension. Consultations: Urologist Dr. Butler, ID Dr. Guerra Pending Studies/Follow-Up: Repeat CBC on follow up; Repeat Blood cultures after Cephalexin course; Please refer to hospital course below. Medication Reconciliation New Medications: Cephalexin Monohydrate (Cephalexin) 500 Mg Cap 1 CAP PO TID for 21 Days, #63 CAP 0 Refills Ferrous Sulfate (Ferrous Sulfate) 325 Mg Tab 325 MG PO QAM for 30 Days, #30 TAB 1 Refill Metronidazole (Metronidazole) 500 Mg Tab 500 MG PO Q8 for 6 Days, #18 TAB 2 Refills Continued Medications: Ascorbic Acid (Ascorbic Acid) 500 Mg Tab 500 MG PO DAILY, TAB Atorvastatin (Lipitor) 20 Mg Tab 20 MG PO HS, TAB Clonazepam (Clonazepam) 1 Mg Tab 1 MG PO HS Fish Oil ([place]-3) 1 Ea Cap 1 CAP PO DAILY, CAP Gabapentin (Neurontin) 800 Mg Tab 800 MG PO QID, TAB Insulin Detemir (Levemir) 100 Units/Ml Inj 30 UNITS SC QPM OR DIRECTED Lisinopril (Zestril) 5 Mg Tab 5 MG PO HS, TAB Metformin Hcl (Glucophage) 1,000 Mg Tab 1000 MG PO BIDM Metoprolol Tartrate (Lopressor) (Lopressor) 25 Mg Tab 12.5 MG PO DAILY, TAB Multivitamin (Multivitamin) Tab 1 TAB PO HS, TAB Ranitidine (Zantac) 150 Mg Tab 150 MG PO BID, TAB Vitamin E (Alph-E) 400 Unit Cap 1 CAP PO QAM Admission Information HPI (per Admitting provider): Medical history significant for hypertension, DM2, insulin requiring, chronic anemia (baseline hemoglobin 10-11), cirrhosis secondary NAFLD, past tobacco abuse as per records. Recent confinement July 2016 for sepsis secondary to UTI. Last night, the patient noted achy right flank discomfort relieved by ibuprofen. This morning, the patient noted to be confused, unable to control her bladder. Subsequent diarrhea symptoms noted. No chest pain, no shortness of breath. At the Emergency Room, the patient given Daptomycin and Zosyn for possible sepsis. Patient more awake now as per family. Physical Exam (per Admitting): VITAL SIGNS: Blood pressure was noted to be 110/70, pulse rate 76, later 110; RR 20 T 37 O2sats 96% on room air. GENERAL: Noted to be wane, no resp distress. SKIN: Pallor. HEENT: sparse hair, pale palp conjunctivae. Dry oral mucosa. NECK: Short neck. LUNGS: Decreased breath sounds. HEART: Tachycardic. ABDOMEN: Soft. EXTREMITIES: Minimal LE edema. no tenderness NE no gross focality. Hospital Course 66 year old female with history of DM, HTN, CKD 3, BOWDEN, Possible Sarcoidosis presenting with altered mental status ALTERED MENTAL STATUS LIKELY METABOLIC ENCEPHALOPATHY , RESOLVED, SECONDARY TO SEPSIS FROM E COLI BACTEREMIA AND UTI; AND C DIFF COLITIS - urine cultures: E coli pansensitive blood cultures: 1/2 E coli pansensitive C diff stool Ag Positive - received Cefepime x 3 days, change to Ceftriaxone x 2 days received Flagyl x 4 days - remained afebrile, overall improved diarrhea resolved - ID consulted, recommending: Cephalexin 500mg TID x 21 days repeat blood cultures after completion of Cephalexin Flagyl 500mg TID to continue 7 days after completion of antibiotics schedule urologic procedures while on antibiotics RIGHT HYDRONEPHROSIS, WITH ACUTE RENAL FAILURE ON CKD 3 BILATERAL NEPHROLITHIASIS - crea increased to 2.0, now back to baseline CT abdomen: - 1. Moderate right hydronephrosis. No ureteral calculi. Differential considerations include a recently passed calculus or infectious process. An occult urothelial lesion could appear similar although is considered less likely. 2. Gas within the left renal collecting system and bladder. This could be due to recent instrumentation. In the absence of recent instrumentation, the findings suggest a gas-forming infectious process. Correlation with urinalysis and history of recent instrumentation is recommended. 3. Bilateral nephrolithiasis, including a left staghorn calculus. 4. Cholelithiasis. - s/p Bilateral Ureteral Stent Placement 10/10/[address] Butler- Urology will need definitive treatment of Nephrolithiasis, schedule urologic procedures while on antibiotics as per ID outpatient ff up with Urologist Iron Deficiency Anemia Hg 7.4 no signs of active bleeding 2 units PRBC ordered, Hg improved to 9.6 on FeSO4 will need outpatient work up monitor DM 2 on Lantus ISS HTN stable BOWDEN outpatient management POSSIBLE SARCOIDOSIS CT abdomen: - Hepatosplenomegaly with innumerable hypodense lesions within the liver and spleen, as shown on prior CT. Overall, the imaging findings raise the possibility of sarcoidosis although metastatic disease remains within the differential. - Possible cirrhosis with a recannulized paraumbilical vein which could indicate portal hypertension. -- continue outpatient management DVT prophylaxis SCDs for now just had ureteral stent placement encouraged to ambulate Disposition pending d/c home today ff up with PCP in 3-5 days ff up with Urologist as scheduled Total time spent on discharge = 40 MINUTES This includes examination of the patient, discharge planning, medication reconciliation, and communication with other providers. Discharge Instructions Discharge Instructions Date of Service Oct 12, 2016. Admission Reason for Admission: Complicated Uti Discharge Discharge Diagnosis / Problem: KIDNEY STONES, URINARY TRACT AND BLOODSTREAM INFECTION Discharge Goals Goal(s): Diagnostic testing, Therapeutic intervention Activity Recommendations Activity Limitations: as noted below (NO HEAVY EXERTION UNTIL RE-EVALUATED BY PRIMARY CARE PHYSICIAN) . Instructions / Follow-Up Instructions / Follow-Up PLEASE REVIEW NEW MEDICATION LIST AND FOLLOW INSTRUCTIONS CAREFULLY. CALL PRIMARY CARE PHYSICIAN OR RETURN TO ER IF WITH RECURRENCE OF SYMPTOMS, FEVER/CHILLS, WEAKNESS, ABDOMINAL PAIN, BLOOD IN THE URINE. ENSURE ADEQUATE DAILY FLUID INTAKE. FOLLOW UP WITH DR. DAVE IN 3-5 DAYS (CLINIC WILL CALL PATIENT WITH APPOINTMENT ). FOLLOW UP WITH UROLOGIST DR. BUTLER SCHEDULED. TEL NO. Current Hospital Diet Patient's current hospital diet: Diabetes Type 2 Diet, Low Lactose Diet Discharge Diet Recommended Diet: AHA Diet (Heart Healthy), Diabetes Type 2 Diet Procedures Procedures Performed: cystoscopy, b/l retrograde pyelogram, b/l ureteral stent placement ([id number]); 2 units pRBC transfusion Pending Studies Studies pending at discharge: yes List of pending studies: repeat CBC and Blood Cultures c/o Dr. Dave; Stent Removal c/o Dr. Butler Laboratory Results Hemoglobin A1c Test 10/10/16 07:40 Range/Units Estimated Average Glucose 154 mg/dl Hemoglobin A1c 7.0 H 4.5-5.6 % Medical Emergencies . Who to Call and When: Medical Emergencies: If at any time you feel your situation is an emergency, please call 911 immediately. . Non-Emergent Contact Non-Emergency issues call your: Primary Care Provider, Urologist Call Non-Emergent contact if: you have a fever, your pain is not controlled, you have any medication questions . Past History Medical & Surgical History: (1) Diabetes (2) Sepsis (3) Hypertension (4) Complicated UTI (urinary tract infection) (5) Sepsis . "Provider Documentation" section prepared by Myles Trujillo. VTE Core Measure Inpt VTE Proph given/why not?: SCD's
[2016-11-12] MEDS ORDERED: FLUO5CRE TOP (16:07)
[2016-11-25] MEDS ORDERED: TRAM-10 PO (13:50)
[2016-11-25] MEDS ORDERED: CIPR-255 PO (13:50)
[2016-12-11] MEDS ORDERED: CIPR-255 PO (09:43)
[2016-12-11] MEDS ORDERED: TRAM-10 PO (09:43)
== END 2016-10-12 16:15 | disposition home or self-care (01) | DRG 871 ==
LOC: CANRESERV → ENRESERVDT → ENRESERVTM → C.EDB 17:21 → C.MS4W 20:17
PROVIDERS: ADMIT Internal Medicine; ATTEND Internal Medicine
PROC: 0T788DZ Dilation of Bilateral Ureters with Intraluminal Device, Via Natural or Artificial Opening Endoscopic (ICD-10-PCS; principal; 2016-10-10 15:00)
PROC: BT140ZZ Fluoroscopy of Kidneys, Ureters and Bladder using High Osmolar Contrast (ICD-10-PCS; principal; 2016-10-10 15:00)
DX: A41.51 Sepsis due to Escherichia coli [E. coli] (principal); G93.41 Metabolic encephalopathy; N17.9 Acute kidney failure, unspecified; N13.2 Hydronephrosis with renal and ureteral calculous obstruction; N12 Tubulo-interstitial nephritis, not specified as acute or chronic; A04.7 Enterocolitis due to Clostridium difficile; K76.6 Portal hypertension; B96.20 Unspecified Escherichia coli [E. coli] as the cause of diseases classified elsewhere; E86.0 Dehydration; D86.9 Sarcoidosis, unspecified; E11.42 Type 2 diabetes mellitus with diabetic polyneuropathy; E11.22 Type 2 diabetes mellitus with diabetic chronic kidney disease; I12.9 Hypertensive chronic kidney disease with stage 1 through stage 4 chronic kidney disease, or unspecified chronic kidney disease; N18.3 Chronic kidney disease, stage 3 (moderate); K75.81 Nonalcoholic steatohepatitis (NASH); D50.9 Iron deficiency anemia, unspecified; D69.59 Other secondary thrombocytopenia; K74.60 Unspecified cirrhosis of liver; M19.90 Unspecified osteoarthritis, unspecified site; K21.9 Gastro-esophageal reflux disease without esophagitis; E66.9 Obesity, unspecified; Z68.36 Body mass index [BMI] 36.0-36.9, adult; Z87.891 Personal history of nicotine dependence; Z79.4 Long term (current) use of insulin; Z79.84 Long term (current) use of oral hypoglycemic drugs; Z79.899 Other long term (current) drug therapy

== ENCOUNTER → 2016-10-29 | Outpatient (CLI) | payer OTHER ==
[~2016-10-29] MED LIST changes: -ASCO10003 PO; +ASCO500T16 PO; -CFT250 PO; +CIPR-255 PO; -CLON0.5T3 PO; +FLUO5CRE TOP; -INSUINJ12 SC; +KFL500 PO; +KLN1X PO; -LPR25 PO; +LVMI SC; +METO25TA56 PO; +MTR500 PO; -MULT-190 PO; +OMEG10007 PO; +TRAM-10 PO
--- NOTE | 2016-10-29 14:43 | MAMMOGRAPHY REPORT ---
BILATERAL DIGITAL SCREENING MAMMOGRAM WITH CAD: 10/29/2016 CLINICAL HISTORY: Routine screening. Patient has no complaints. TECHNIQUE: Current study was also evaluated with a Computer Aided Detection (CAD) system. Bilatera l CC and MLO views were obtained. COMPARISON: Comparison is made to exams dated: 10/29/2015 mammogram, 03/30/2015 mammogram, 03/20/2015 ma mmogram, 10/22/2012 mammogram - [facility], 12/01/2008, and 12/01/2008. BREAST COMPOSITION: There are scattered areas of fibroglandular density in both breasts. FINDINGS: No suspicious masses, calcifications, or areas of architectural distortion are noted in e ither breast. There has been no significant interval change compared to prior exams. Bilateral diana gn-appearing calcifications are not significantly changed. A biopsy marker clip is again noted in t he left subareolar breast from prior benign stereotactic biopsy. Small round 6 mm benign-appearing mass seen adjacent to the biopsy marker clip is stable to the October 2015 exam and is most compatible with postbiopsy changes. IMPRESSION: ACR BI-RADS CATEGORY 2: BENIGN There is no mammographic evidence of malignancy. A 1 year screening mammogram is recommended. The p atient will receive written notification of the results. Approximately 10% of breast cancers are not detected with mammography. A negative mammographic repor t should not delay biopsy if a clinically suggestive mass is present. Liliana Lozano M.D. /:10/29/2016 13:42:40 [employer] Finisher: Chinyere BALBUENA)(Leah), [facility] letter sent: Normal 1/2 BI-RADS Code: ACR BI-RADS Category 2: Benign
== END | disposition home or self-care (01) ==
LOC: C.MAMM 12:26
PROVIDERS: ATTEND Family Medicine
DX: Z12.31 Encounter for screening mammogram for malignant neoplasm of breast (principal)

== ENCOUNTER → 2016-11-13 | Outpatient (CLI) | payer OTHER ==
[~2016-11-13] MED LIST changes: -KFL500 PO; -MTR500 PO
[2016-11-13 12:17] LABS: BASO % 0.5 %; BASO ABS # 0.02 K/uL (0-0.2); COMPLETE YES; EOS % 8.6 %; HEMATOCRIT 34.7 % (37-47); LYMPH % 25.6 %; LYMPH ABS # 1.01 K/uL (1.2-3.4); MEAN CORPUSCULAR HEMOGLOBIN 29.2 pg (25-34); MEAN CORPUSCULAR HGB CONC 32.9 g/dl (32-36); MEAN PLATELET VOLUME 10.4 fL (7.4-10.4); MONO % 9.4 %; NEUT % 55.9 %; PLATELET COUNT 127 K/uL (130-400); WHITE BLOOD COUNT 3.95 K/uL (4.8-10.8)
[2016-11-13 12:41] LABS: URINE APPEARANCE CLEAR (CLEAR); URINE BILIRUBIN NEG (NEG); URINE COLOR YELLOW; URINE EPITHELIAL CELL AUTO >30 /lpf (0-5); URINE NITRITE NEG (NEG); URINE PH 6.5 (4.5-7.5); URINE SPECIFIC GRAVITY 1.013 (1.000-1.030); UROBILINOGEN NEG (NEG)
[2016-11-13 12:47] LABS: MANUAL MICROSCOPIC REQUIRED? NO; REVIEW REQ? YES
[2016-11-13 13:14] LABS: CALCIUM 9.6 mg/dl (8.5-10.1)
[2016-11-13 13:17] LABS: BLOOD UREA NITROGEN 18 mg/dl (7-18); BUN/CREATININE RATIO 16.4 (10-20); CARBON DIOXIDE 30 mmol/L (21-32); CHLORIDE 103 mmol/L (98-107); GLUCOSE 208 mg/dl (70-99); POTASSIUM 4.6 mmol/L (3.5-5.1); SODIUM 140 mmol/L (136-145)
== END | disposition home or self-care (01) ==
LOC: C.LAB 10:18
PROVIDERS: ATTEND Urology
DX: N20.0 Calculus of kidney (principal)

== ENCOUNTER 2016-11-25 10:29 | Day surgery (SDC) | payer OTHER ==
[2016-11-12 15:52] VITALS: BMI 34.0
[~2016-11-25] VITALS: Ht 167.6 cm; Wt 96.8 kg
[~2016-11-25 10:29] MED LIST changes: -CIPR-255 PO; +CIPROFLOXACIN / D5W 400 MG IV SCH; +LACTATED RINGER'S 1000ML 1,000 ML IV SCH; -TRAM-10 PO
[2016-11-25] MEDS ORDERED: MIDAZOLAM HCL 1 MG/ML 2ML VIAL ONE (10:55)
[2016-11-25] MEDS ORDERED: FENTANYL CITRATE INJ 50 MCG/1 ML 2 ML VIAL ONE (10:56)
[2016-11-25 11:15] VITALS: BP 169/76; PULSE 96; TEMP 36.5; O2SAT 99; Ht 167.6 cm; Wt 96.8 kg
--- NOTE | 2016-11-25 11:24 | History & Physical Bridge Note ---
H&P Re-Evaluation Bridge Note: I have examined the patient, reviewed the History & Physical and in the interval since the performance of the History & Physical I have noted the following changes of clinical significance: No changes noted
[2016-11-25] MEDS ORDERED: CONRAY 30% 150ML BOTTLE ONE (11:27)
[2016-11-25] MEDS ORDERED: EpHEDrine SULFATE INJ 50 MG/ML AMP IV PRN (11:45)
[2016-11-25] MEDS ORDERED: ATROPINE SULFATE 0.1 MG/ML 5ML SYR IV PRN (11:45)
[2016-11-25] MEDS ORDERED: ONDANSETRON INJ 2 MG/ML 2 ML VIAL IV PRN (11:45)
[2016-11-25] MEDS ORDERED: ONDANSETRON INJ 2 MG/ML 2 ML VIAL ONE (11:59)
[2016-11-25] MEDS ORDERED: PHENYLEPHRINE 100MCG/ML 5ML SYR ONE (11:59)
[2016-11-25] MEDS ORDERED: PROPOFOL IV EMULSION 10 MG/ML 20 ML VIAL IV ONE (11:59)
[2016-11-25] MEDS ORDERED: LIDOCAINE HCL 2% 2 ML VIAL (20MG/ML) ONE (11:59)
[2016-11-25] MEDS ORDERED: SODIUM CHLORIDE 0.9% 1000ML 1,000 ML IV SCH (13:47)
[2016-11-25] MEDS ORDERED: TRAM-10 PO (13:50)
[2016-11-25] MEDS ORDERED: CIPR-255 PO (13:50)
--- NOTE | 2016-11-25 13:51 | Discharge Instructions ---
Discharge Instructions Date of Service November 25, 2016. Admission Reason for Admission: Stones Discharge Discharge Diagnosis / Problem: stones Discharge Goals Goal(s): Decrease discomfort, Improve function, Increase independence, Improve disease control Activity Recommendations Activity Limitations: resume your previous activity Lifting Limitations: none Exercise/Sports Limitations: none May Resume Sexual Activity: when tolerated Shower/Bathe: no limitations Driving or Machine Use: no limitations . Instructions / Follow-Up Instructions / Follow-Up Dr. Chin's office will contact you to schedule your next surgery. Discharge Diet Recommended Diet: Regular Diet Procedures Procedures Performed: Cystoscopy, Left Ureteroscopy, Laser Lithotripsy, Left Uretral Stent placement; Right Retrograde Pyelogram, Right Uretral Stent Removal Pending Studies Studies pending at discharge: no Laboratory Results Hemoglobin A1c Test 10/10/16 07:40 Range/Units Estimated Average Glucose 154 mg/dl Hemoglobin A1c 7.0 H 4.5-5.6 % Medical Emergencies . Who to Call and When: Medical Emergencies: If at any time you feel your situation is an emergency, please call 911 immediately. . Non-Emergent Contact Non-Emergency issues call your: Urologist Call Non-Emergent contact if: you have a fever, temperature is above 101.5, your pain is not controlled, your pain is worsening . . "Provider Documentation" section prepared by Ministerio Abrams. . VTE Core Measure Inpt VTE Proph given/why not?: Treatment not indicated
[2016-11-25] MEDS ORDERED: ACETAMINOPHEN 325 MG TAB PO PRN (14:00)
[2016-11-25] MEDS ORDERED: TRAMADOL HCL 50 MG TAB PO PRN (14:00)
--- NOTE | 2016-11-25 14:29 | OPERATIVE REPORT ---
DATE OF OPERATION: 11/25/2016 PREOPERATIVE DIAGNOSES: Bilateral ureteral stents and left staghorn calculus. POSTOPERATIVE DIAGNOSIS: Left staghorn calculus. PROCEDURES PERFORMED: Cystoscopy, right stent removal and retrograde pyelogram, left ureteroscopy, laser lithotripsy and stent exchange, 6-Finnish x 24 cm. ANESTHESIA: General. ESTIMATED BLOOD LOSS: 5 mL. URINE OUTPUT: Not recorded. SPECIMENS: There were no specimens. COMPLICATIONS: There were no complications. DESCRIPTION OF THE PROCEDURE: Evangelina Tijerina was identified in the preoperative holding area. Appropriate informed consents were reviewed and completed and the patient was transported to the operating suite. Upon arrival, she received appropriate preoperative antibiotics in the form of ciprofloxacin. Adequate general anesthesia was achieved and she was placed in dorsal lithotomy position, where she was sterilely prepped and draped in the standard fashion. We began the case by passing a 22-Finnish cystoscope and 30-degree lens. Full inspection revealed bilateral ureteral stent easily seen protruding into the bladder. I grasped the distal end of the right ureteral stent and withdrew it to the meatus. I attempted to intubate this with a sensor wire; however, there was a minor bit of obstruction at the most proximal tip. I therefore removed the stent entirely and reintubated the ureter and advanced the wire to the kidney without difficulty. I then placed a 10-Finnish double lumen catheter over the wire into the distal ureter. I performed a retrograde pyelogram. Of note, she has a moderately ptotic kidney with a very high subsequent ureteral insertion and mild hydronephrosis, particularly of the renal pelvis. The ureter itself was nondilated. After performing this retrograde pyelogram and seeing no filling defects or other clear obstructions along the ureter, I withdrew the wire and proceeded to turn my attention to the left side. I grasped the distal end of the left ureteral stent and withdrew it to the meatus. I was able to intubate this with a sensor wire and advanced the wire to the kidney without difficulty. I subsequently placed a 10-Finnish double lumen catheter and utilized the second working port to place a second wire into the kidney. I then utilized one of the wires to pass a ureteral access sheath to the level of the UPJ. The wire was subsequently left outside of the access sheath as a safety wire. Utilizing the access sheath, I was able to advance the flexible ureteroscope to the kidney and perform a full renoscopy. She has a very large calculus predominantly filling the upper pole of the kidney. This was several centimeters across in widest diameter. I turned my attention to the stone immediately and passed a 400 micron laser fiber and began lasering. I proceeded to laser for an hour and a half, working our way through approximately 60%-70% of the stone. Stone was quite hard, but did fragment successfully with laser. After this amount of working time, I elected the conclude the case and return at a later time for her second staged ureteroscopy. She had a copious amount of stone debris that was irrigated out of the kidney successfully via the access sheath and on full renoscopy before concluding, I saw no evidence of renal trauma or other abnormalities. Careful exit ureteroscopy was performed while simultaneously withdrawing the access sheath. There was no evidence of any ureteral trauma with the access sheath. A 6-Finnish 24-cm double-J stent was placed over the wire with a good curl in the kidney and the bladder. The bladder was decompressed and the case was concluded. She was extubated and taken to the PACU in stable condition. I attest to the content of the Intraoperative Record and any orders documented therein. Any exceptions are noted below. LAXMID
[2016-11-25] MEDS: FENTANYL CITRATE INJ 50 MCG/1 ML 2 ML VIAL IV PRN ×3 (14:31→14:51)
--- NOTE | 2016-11-25 14:53 | Anesthesiology Progress Note ---
Anesthesia Post Op Note Date & Time November 25, 2016 at 14:53 Vital Signs Pain Intensity: 0 Vital Signs Past 12 Hours Date Time Temp Pulse Resp B/P Pulse Ox O2 Delivery O2 Flow Rate FiO2 11/25/16 14:17 80 10 11/25/16 14:17 80 10 100 11/25/16 14:15 132/81 11/25/16 14:12 89 21 11/25/16 14:12 90 21 100 11/25/16 14:10 108/75 11/25/16 14:07 93 16 11/25/16 14:07 93 16 100 11/25/16 14:05 112/69 11/25/16 14:02 93 13 11/25/16 14:02 36.0 93 12 131/67 100 Mask 10 11/25/16 14:02 93 13 131/67 100 11/25/16 11:15 36.5 96 20 169/76 99 Room Air Notes Mental Status: alert / awake / arousable, participated in evaluation Pt Amnestic to Procedure: Yes Nausea / Vomiting: adequately controlled Pain: adequately controlled Airway Patency, RR, SpO2: stable & adequate BP & HR: stable & adequate Hydration State: stable & adequate Anesthetic Complications: no major complications apparent
[2016-11-25] MEDS ORDERED: KETOROLAC TROMETHAMINE 30 MG/ML VIAL ONE (14:55)
[2016-11-25 15:25] VITALS: BP 141/76; PULSE 76; TEMP 36.7; O2SAT 96
[2016-11-25 15:55] VITALS: BP 148/70; PULSE 82; O2SAT 97
[2016-11-25] MEDS ORDERED: NURSING VERBAL MED ORDER ONE (16:00)
[2016-11-25] MEDS ORDERED: PROMETHAZINE HCL INJ 12.5 MG in SODIUM CHLORIDE 0.9% 50ML 50 ML IV ONE (16:15)
[2016-11-25 16:20] VITALS: BP 150/70; PULSE 85; TEMP 36; O2SAT 95
[2016-11-25 17:10] VITALS: BP 153/70; PULSE 96; TEMP 36.1; O2SAT 97
[2016-11-25] MEDS ORDERED: TAMSULOSIN HCL 0.4 MG CAP PO SCH (21:00)
== END 2016-11-25 17:30 | disposition home or self-care (01) ==
LOC: C.ACU 10:29
PROVIDERS: ATTEND Urology
DX: N20.0 Calculus of kidney (principal); E11.9 Type 2 diabetes mellitus without complications; M15.9 Polyosteoarthritis, unspecified; E78.5 Hyperlipidemia, unspecified; I10 Essential (primary) hypertension; C44.320 Squamous cell carcinoma of skin of unspecified parts of face; Z87.891 Personal history of nicotine dependence; Z79.899 Other long term (current) drug therapy

== ENCOUNTER 2016-12-11 06:46 | Day surgery (SDC) | payer OTHER ==
[2016-12-03 10:20] VITALS: BMI 35.0
[~2016-12-11] VITALS: Ht 167.6 cm; Wt 97.7 kg
[~2016-12-11 06:46] MED LIST changes: -FLUO5CRE TOP; +TRAM-10 PO
[2016-12-11 07:22] VITALS: BP 172/81; PULSE 94; TEMP 36.5; O2SAT 96; Ht 167.6 cm; Wt 97.7 kg
[2016-12-11] MEDS ORDERED: DEXAMETHASONE SOD INJ 4 MG/ML VIAL ONE (07:35)
[2016-12-11] MEDS ORDERED: PROPOFOL IV EMULSION 10 MG/ML 20 ML VIAL IV ONE (07:35)
[2016-12-11] MEDS ORDERED: ONDANSETRON INJ 2 MG/ML 2 ML VIAL ONE (07:35)
[2016-12-11] MEDS ORDERED: LIDOCAINE HCL 2% 2 ML VIAL (20MG/ML) ONE (07:35)
[2016-12-11] MEDS ORDERED: FENTANYL CITRATE INJ 50 MCG/1 ML 2 ML VIAL ONE (07:36)
[2016-12-11] MEDS ORDERED: MIDAZOLAM HCL 1 MG/ML 2ML VIAL ONE (07:36)
[2016-12-11] MEDS ORDERED: CONRAY 30% 150ML BOTTLE ONE (08:05)
--- NOTE | 2016-12-11 08:12 | History and Physical ---
History & Physical Date December 11, 2016. History of Present Illness The patient is a 66 year old female with complaints of a large, left renal calculus. She recently had stage one of a planned, multi-stage ureteroscopic intervention. She now returns for stage 2 Past Medical/Surgical History Medical Problems: (1) Complicated UTI (urinary tract infection) (2) Diabetes (3) Diabetes (4) Hypertension (5) Hypertension (6) Sepsis (7) Sepsis Additional History Hepatic Disease: Yes Endocrine Disorder: Yes Kidney Disease: Yes Hypertension: Yes Heart Disease: Yes Bleeding Tendencies: No Infectious Diseases: No Allergies Coded Allergies: Oxycodone (Verified Allergy, Unknown, depresses respiratory function, 12/11) Tetracyclines (Verified Adverse Reaction, Severe, CAUSES DECREASED RESPIRATIONS, YEAST INFECTIONS, 12/11/16) Home Medications Scheduled Ascorbic Acid (Ascorbic Acid), 500 MG PO QAM Atorvastatin (Lipitor), 20 MG PO HS Clonazepam (Clonazepam), 0.5 MG PO HS Ferrous Sulfate (Ferrous Sulfate), 325 MG PO QAM Fish Oil ([place]-3), 1 CAP PO BID Gabapentin (Neurontin), 800 MG PO TID Insulin Detemir (Levemir), 34 UNITS SC QPM Lisinopril (Zestril), 5 MG PO HS Metformin Hcl (Glucophage), 1,000 MG PO BIDM Metoprolol Tartrate (Lopressor) (Lopressor), 12.5 MG PO QAM Multivitamin (Multivitamin), 1 TAB PO HS Ranitidine (Zantac), 150 MG PO HS Vitamin E (Alph-E), 1 CAP PO QAM Scheduled PRN Tramadol (Ultram), 50 MG PO Q4H PRN for Pain Physical Examination Skin: warm/dry, no rash Eyes: normal inspection, EOMI, sclerae normal ENT: normal ENT inspection, pharynx normal Head: normocephalic, atraumatic Neck: supple, no adenopathy, trachea midline Respiratory/Chest: lungs clear, normal breath sounds, no respiratory distress Cardiovascular: regular rate, rhythm, no edema, no murmur Abdomen / GI: normal bowel sounds, non tender Back: normal inspection Extremities: normal inspection, normal range of motion Neurologic/Psych: no motor/sensory deficits, alert, normal reflexes, oriented x 3 Plan of Treatment Cystoscopy; Left ureteroscopy/laser lithotripsy and stent exchange.
[2016-12-11] MEDS ORDERED: SODIUM CHLORIDE 0.9% 1000ML 1,000 ML IV SCH (09:41)
--- NOTE | 2016-12-11 09:41 | [facility] Post Operative Brief Note ---
Immediate Operative Summary Operative Date December 11, 2016. Pre-Operative Diagnosis Left Renal Calculus Post-Operative Diagnosis Same as preop Procedure(s) Performed Cystoscopy, Left Ureteroscopy, Laser Lithotripsy; Stent exchange ([id number]) Surgeon Dr. Chin Vibration Technician Surgeon(s) none Estimated Blood Loss 0 ML Findings Large left renal stone - significantly decreased in size after prior surgery. Remaining pieces all fragmented - attempted to treat all stone fragments to sub mm size to allow for spontaneous passage. Specimens None per surgeon Drains [id number] Anesthesia gen Complication(s) None Disposition Recovery Room / PACU (stable)
[2016-12-11] MEDS ORDERED: TRAM-10 PO (09:43)
[2016-12-11] MEDS ORDERED: CIPR-255 PO (09:43)
[2016-12-11] MEDS ORDERED: ACETAMINOPHEN 325 MG TAB PO PRN (09:45)
[2016-12-11] MEDS ORDERED: TRAMADOL/ACETAMINOPHEN 37.5/325MG TAB PO PRN (09:45)
--- NOTE | 2016-12-11 09:49 | Discharge Instructions ---
Discharge Instructions Date of Service December 11, 2016. Admission Reason for Admission: STONE Discharge Discharge Diagnosis / Problem: stone Discharge Goals Goal(s): Decrease discomfort, Improve function, Increase independence, Improve disease control Activity Recommendations Activity Limitations: resume your previous activity Lifting Limitations: gradually increase as tolerated Exercise/Sports Limitations: gradually increase as tolerated May Resume Sexual Activity: when tolerated Shower/Bathe: no limitations Driving or Machine Use: resume 1 day after discharge . Instructions / Follow-Up Instructions / Follow-Up Please come to Dr. Chin's office on 12/24/16 at 9:40AM to have your stent removed. Please stop at the hospital and have a KUB (XRAY) taken prior to this visit. Discharge Diet Recommended Diet: Regular Diet, Diabetes Type 2 Diet Procedures Procedures Performed: Cystoscopy, Left Ureteroscopy, Laser Lithotripsy; Stent exchange ([id number]) Pending Studies Studies pending at discharge: no Laboratory Results Hemoglobin A1c Test 10/10/16 07:40 Range/Units Estimated Average Glucose 154 mg/dl Hemoglobin A1c 7.0 H 4.5-5.6 % Medical Emergencies . Who to Call and When: Medical Emergencies: If at any time you feel your situation is an emergency, please call 911 immediately. . Non-Emergent Contact Non-Emergency issues call your: Urologist Call Non-Emergent contact if: you have a fever, temperature is above 101.5, your pain is not controlled, your pain is worsening . . "Provider Documentation" section prepared by Ministerio Abrams. . VTE Core Measure Inpt VTE Proph given/why not?: Treatment not indicated [place] Drug Monitoring Program Search Results: patient reviewed within database, no issues identified
[2016-12-11] MEDS ORDERED: INSULIN HUMAN REGULAR PER UNIT 10 UNITS in SYRINGE 0 ML IV STA (09:52)
[2016-12-11] MEDS ORDERED: NovoLIN-R INSULIN PER UNIT CHARGE ONE (09:54)
[2016-12-11] MEDS ORDERED: ATROPINE SULFATE 0.1 MG/ML 5ML SYR IV PRN (10:00)
[2016-12-11] MEDS ORDERED: LABETALOL HCL IV 5 MG/ML 20ML IV PRN (10:00)
[2016-12-11] MEDS ORDERED: FLUMAZENIL 0.1 MG/1 ML 10 ML VIAL IV PRN (10:00)
[2016-12-11] MEDS ORDERED: PROMETHAZINE HCL INJ 12.5 MG in SODIUM CHLORIDE 0.9% 50ML 50 ML IV PRN (10:00)
[2016-12-11] MEDS ORDERED: ONDANSETRON INJ 2 MG/ML 2 ML VIAL IV PRN (10:00)
[2016-12-11] MEDS ORDERED: EpHEDrine SULFATE INJ 50 MG/ML AMP IV PRN (10:00)
[2016-12-11] MEDS ORDERED: FENTANYL CITRATE INJ 50 MCG/1 ML 2 ML VIAL IV PRN (10:00)
[2016-12-11] MEDS ORDERED: NALOXONE HCL 0.4 MG/1 ML VIAL/CARP IV PRN (10:00)
[2016-12-11 10:30] VITALS: BP 177/83; PULSE 89; TEMP 36.4; O2SAT 97
--- NOTE | 2016-12-11 10:39 | OPERATIVE REPORT ---
DATE OF OPERATION: 12/11/2016 PREOPERATIVE DIAGNOSIS: Left renal calculus. POSTOPERATIVE DIAGNOSIS: Left renal calculus. PROCEDURES PERFORMED: Cystoscopy, left ureteroscopy, left laser lithotripsy, and left ureteral stent exchange. ANESTHESIA: General. ESTIMATED BLOOD LOSS: 0. URINE OUTPUT: Not recorded. SPECIMENS: There are no specimens. COMPLICATIONS: There are no complications. DRAINS: A 6-Swazi x 24-cm double-J ureteral stent. DESCRIPTION OF THE PROCEDURE: Evangelina Tijerina was identified in the preoperative holding area. Appropriate informed consents were reviewed and completed and transported to the operating suite. Upon arrival, she received appropriate preoperative antibiotics and general anesthesia. She was placed in dorsal lithotomy position, where she was sterilely prepped and draped in standard fashion. I began the case by passing a 22-Swazi cystoscope with 30 degree lens. Full inspection of the bladder was carried out with no abnormalities appreciated. Ureteral stent was easily seen protruding from the left ureteral orifice. The distal aspect of the stent was grasped with a flexible grasper and withdrawn to the urethral meatus while simultaneously watching the proximal curl under fluoroscopy. Utilizing a Bentson wire, I was able to intubate the stent and advance the wire to the kidney. There still was a large opacity in the upper pole consistent with the stone previously treated. After advancing one wire and removing the stent, I placed a second wire alongside it into the kidney. I then advanced an ureteral access sheath to the level of the UPJ. I passed a flexible ureteroscope through this access sheath and performed a full inspection. There was limited debris left in the kidney. The majority of the previously fragmented stone had successfully passed. There was still a large retained fragment from her prior surgery in the upper pole. I estimated that we had made progress to 50%-70% of the stone during her last treatment and I felt this was accurate based on current assessment. I passed a 400 micron laser fiber and I began fragmenting the remaining portion of the stone. I successfully fragmented all the large stone and then I proceeded to carefully work my way through the pile of rubble to be sure that there were no large retained fragments. I performed numerous repeat renoscopies in all calices to confirm that there were no large stones. It appeared that all stones appeared to have been treated adequately to a size of 1 mm or less. I performed a careful exit ureteroscopy while simultaneously withdrawing the ureteral access sheath and I saw no evidence of ureteral trauma nor ureteral stones. Utilizing the existing safety wire, I placed a 6 Swazi x 24 cm double-J ureteral stent seeing a good curl in the renal pelvis as well as in the bladder. Subsequently, I emptied the bladder and concluded the case. The patient was extubated and taken to the PACU in stable condition. I attest to the content of the Intraoperative Record and any orders documented therein. Any exceptio ns are noted below.
--- NOTE | 2016-12-11 10:43 | Anesthesiology Progress Note ---
Anesthesia Post Op Note Date & Time December 11, 2016 at 10:44 Vital Signs Pain Intensity: 0 Vital Signs Past 12 Hours Date Time Temp Pulse Resp B/P Pulse Ox O2 Delivery O2 Flow Rate FiO2 12/11/16 10:25 36.5 92 16 143/74 97 Room Air 12/11/16 10:15 89 16 141/71 95 12/11/16 10:05 85 16 140/66 100 Mask 10 12/11/16 09:55 85 16 137/73 100 Mask 10 12/11/16 09:46 36. 86 16 132/77 100 Mask 10 12/11/16 07:22 36.5 94 20 172/81 96 Room Air Notes Mental Status: alert / awake / arousable, participated in evaluation Pt Amnestic to Procedure: Yes Nausea / Vomiting: adequately controlled Pain: adequately controlled Airway Patency, RR, SpO2: stable & adequate BP & HR: stable & adequate Hydration State: stable & adequate Anesthetic Complications: no major complications apparent
[2016-12-11 11:00] VITALS: BP 165/79; PULSE 87; TEMP 36.6; O2SAT 97
[2016-12-11 11:30] VITALS: BP 156/75; PULSE 81; TEMP 36.6; O2SAT 98
== END 2016-12-11 12:30 | disposition home or self-care (01) ==
LOC: C.ACU 06:46
PROVIDERS: ATTEND Urology
DX: N20.0 Calculus of kidney (principal); I10 Essential (primary) hypertension; E11.9 Type 2 diabetes mellitus without complications; Z87.440 Personal history of urinary (tract) infections; Z79.4 Long term (current) use of insulin; Z79.899 Other long term (current) drug therapy

== ENCOUNTER → 2016-12-23 | Outpatient (CLI) | payer OTHER ==
[~2016-12-23] MED LIST changes: +CIPR-255 PO; -CIPROFLOXACIN / D5W 400 MG IV SCH; -LACTATED RINGER'S 1000ML 1,000 ML IV SCH
--- NOTE | 2016-12-23 08:01 | DIAGNOSTIC IMAGING REPORT ---
KUB CLINICAL HISTORY: N20.0 Nephrolithiasis COMPARISON STUDY: CT scan dated 10/08/2016 FINDINGS: There is probable splenomegaly. There is no pathologic bowel dilatation. There is 6 mm lower pole right renal calculus. There are multiple fragmented left renal calculi. These measure 3 cm in aggregate both within the upper pole and lower pole. There is a left-sided nephroureteral stent. IMPRESSION: 1. Bilateral nephrolithiasis 2. Left-sided nephroureteral stent 3. No evidence of pathologic bowel dilatation 4. Probable splenomegaly Electronically signed by: Jake Arango M.D. 12/23/2016 8:00 AM Dictated Date/Time: 12/23/2016 7:58 AM
== END | disposition home or self-care (01) ==
LOC: C.RAD 07:28
PROVIDERS: ATTEND Urology
DX: N20.0 Calculus of kidney (principal)

== ENCOUNTER → 2017-02-23 | Outpatient (CLI) | payer OTHER ==
--- NOTE | 2017-02-23 14:26 | DIAGNOSTIC IMAGING REPORT ---
KUB CLINICAL HISTORY: NEPHROLITHIASIS COMPARISON STUDY: 12/23/2016 FINDINGS: The left-sided nephroureteral stent has been removed. There are multiple clustered calcifications project over the mid and lower pole the left kidney. Largest individual calcification measures 5 mm. There is also a faint triangular mid to lower pole right renal calculus measuring 5 mm. The upper pole the right kidney is obscured overlying bowel gas and fecal material. Degenerative changes are present within the spine. IMPRESSION: 1. Bilateral nephrolithiasis. Decreased stone burden on the left as compared to the prior study 2. No evidence of pathologic bowel dilatation Electronically signed by: Jake Arango M.D. 02/23/2017 2:25 PM Dictated Date/Time: 02/23/2017 2:23 PM
== END | disposition home or self-care (01) ==
LOC: C.RAD 14:06
PROVIDERS: ATTEND Urology
DX: Z00.00 Encounter for general adult medical examination without abnormal findings (principal); E11.9 Type 2 diabetes mellitus without complications; N20.0 Calculus of kidney; M54.9 Dorsalgia, unspecified; M76.9 Unspecified enthesopathy, lower limb, excluding foot; R05 Cough; R93.8 Abnormal findings on diagnostic imaging of other specified body structures; R94.31 Abnormal electrocardiogram [ECG] [EKG]

== ENCOUNTER → 2017-05-11 | Outpatient (CLI) | payer OTHER ==
--- NOTE | 2017-05-11 15:35 | DIAGNOSTIC IMAGING REPORT ---
CT SCAN OF THE CHEST WITHOUT IV CONTRAST CLINICAL HISTORY: Pulmonary nodules. COMPARISON STUDY: Chest CT dated 09/11/16 and 05/13/2016. PET/CT dated 06/18/2016. TECHNIQUE: CT scan of the thorax was performed from the thoracic inlet to the upper abdomen. Images are reviewed in the axial, sagittal, and coronal planes. IV contrast was not administered as per the front clinician. A dose lowering technique was utilized adhering to the principles of ALARA. CT DOSE: 751.57 mGy.cm FINDINGS: Thyroid: Imaged portions of the thyroid gland are normal in size and attenuation. Numerous subcentimeter nodules and coarse calcifications are present within both lobes. Thoracic aorta: The thoracic aorta is normal in caliber and demonstrates standard 3-vessel arch anatomy. Heart: The heart is normal in size and without pericardial effusion. There are scattered coronary artery calcifications. Lungs and pleural spaces: Mild emphysema is observed. There is no airspace consolidation or pleural effusion. The trachea and central airways are clear. Scattered residual pulmonary nodules have not significantly changed from 09/11/2016. The largest remaining nodules are present in the right middle lobe on image #162 measuring 5 mm, the right upper lobe on image #73 measuring 4 mm, and the left lower lobe on image #150 measuring 4 mm. No new pulmonary nodules are identified. Mediastinum: There are scattered subcentimeter mediastinal lymph nodes. These are not pathologically enlarged by size criteria. Kim: Not well assessed without IV contrast. Axillae: There is no axillary lymphadenopathy. Upper abdomen: The liver and spleen are enlarged. The spleen measures at least 13.6 cm in length. There are subtle subcentimeter hepatic hypodensities. These were better characterized on the 09/11/2016 contrast-enhanced examination 2 hypodensities previously seen in the spleen are not apparent without IV contrast. Calcified gallstones are noted. A 1.9 cm lipoma is again noted in the left hepatic lobe. Nodularity of the hepatic surface contour suggests early change of cirrhosis. Skeletal structures: The skeletal structures are osteopenic. Degenerative change is noted in the thoracic spine and shoulders. No lytic or blastic bony lesions are seen. IMPRESSION: 1. There is no airspace consolidation typical for pneumonia or pleural effusion. 2. There has been no significant change in appearance of scattered pulmonary nodules measuring up to 5 mm as compared to the 09/11/2016 examination. These had markedly decreased from the earlier 05/13/2016 examination. These remain pathologically indeterminant with an infectious/inflammatory process favored. An additional precautionary 12 month follow-up examination is recommended. 3. Hepatosplenomegaly is again noted. Subtle low-attenuation hepatic lesions are again seen. These are not well visualized, and the splenic lesions no longer identified likely due to lack of IV contrast. Clinical correlation will be required. 4. Nodularity of the hepatic surface contour suggests early change of cirrhosis. 5. Cholelithiasis. Electronically signed by: Kory Valero M.D. 05/11/2017 3:33 PM Dictated Date/Time: 05/11/2017 3:20 PM
== END | disposition home or self-care (01) ==
LOC: C.CTS 14:47
PROVIDERS: ATTEND Internal Medicine Critical Care Medicine
DX: R59.0 Localized enlarged lymph nodes (principal); R91.1 Solitary pulmonary nodule; R16.2 Hepatomegaly with splenomegaly, not elsewhere classified; K80.20 Calculus of gallbladder without cholecystitis without obstruction

== ENCOUNTER → 2017-09-09 | Outpatient (CLI) | payer OTHER ==
[~2017-09-09] MED LIST changes: +RANI150T85 PO; -ZNTT/150 PO
--- NOTE | 2017-09-09 09:47 | DIAGNOSTIC IMAGING REPORT ---
ABDOMINAL ULTRASOUND, RIGHT UPPER QUADRANT HISTORY: Cirrhotic liver with ascites. Elevated total bilirubin.. COMPARISON: Abdomen and pelvis CT 10/08/2016. FINDINGS: Pancreas: The pancreatic head and tail are obscured by overlying bowel gas. The remaining portions of the pancreas are within normal limits. Liver: Slightly nodular contour to the liver consistent with cirrhosis. No intrahepatic bile duct dilatation. No change in the 2.3 cm echogenic lesion within the left hepatic lobe consistent with a lipoma. Gallbladder: Mild gallbladder wall thickening measuring between 3 and 6 mm. Multiple small gallstones. CBD: 5 mm. Right kidney: No hydronephrosis. A 2 cm cyst within the upper pole. IMPRESSION: 1. Cirrhotic liver. 2. Mild gallbladder wall thickening which is nonspecific. This could be due to the patient's cirrhosis or less likely acute cholecystitis. Clinical correlation recommended. 3. Cholelithiasis. 4. No intrahepatic bile duct dilatation. Electronically signed by: Denzel Jose M.D. 09/09/2017 9:46 AM Dictated Date/Time: 09/09/2017 9:18 AM
== END ==
LOC: C.ULTR 08:40
PROVIDERS: ATTEND Nurse Practitioner Family
DX: K74.60 Unspecified cirrhosis of liver (principal)

== ENCOUNTER → 2017-11-03 | Outpatient (CLI) | payer OTHER ==
--- NOTE | 2017-11-05 07:55 | MAMMOGRAPHY REPORT ---
BILATERAL DIGITAL SCREENING MAMMOGRAM TOMOSYNTHESIS WITH CAD: 11/03/2017 CLINICAL HISTORY: Routine screening examination. TECHNIQUE: Breast tomosynthesis in addition to standard 2D mammography was performed. Current study was also evaluated with a Computer Aided Detection (CAD) system. COMPARISON: Comparison is made to exams dated: 10/29/2016 mammogram, 03/20/2015 mammogram, 10/22/2012 ma mmogram - [facility], 12/01/2008, 12/01/2008, and 11/26/2007. BREAST COMPOSITION: There are scattered areas of fibroglandular density in both breasts. FINDINGS: There is stable nodularity in the right breast. Diffuse bilateral groupings of benign-appe aring coarse heterogeneous calcifications, scattered rodlike and punctate micro calcifications and mi ld to moderate vascular calcification in the breasts. There is a stable dumbbell-shaped biopsy marke r clip and adjacent focal asymmetry in the subareolar left breast, denoting the site of prior benign stereotactic biopsy. No new suspicious mass, architectural distortion or cluster of microcalcificati ons is seen. IMPRESSION: ACR BI-RADS CATEGORY 1: NEGATIVE There is no mammographic evidence of malignancy. A 1 year screening mammogram is recommended. The pa tient will receive written notification of the results. Approximately 10% of breast cancers are not detected with mammography. A negative mammographic report should not delay biopsy if a clinically suggestive mass is present. Savannah Chin M.D. ay/:11/03/2017 17:02:23 Project Planner: Leticia LUX(Emy)(Leah), [facility] letter sent: Normal 1/2 BI-RADS Code: ACR BI-RADS Category 1: Negative
== END | disposition home or self-care (01) ==
LOC: C.MAMM 12:47
PROVIDERS: ATTEND Family Medicine
DX: Z12.31 Encounter for screening mammogram for malignant neoplasm of breast (principal)